=== PATIENT | male | born 1955 | race Caucasian/White ===

== ENCOUNTER → 2019-04-30 10:42 | Outpatient (BNVA) | payer BC, SELFPAY | PROVIDERS: Visit Provider Nurse Practitioner Family | DX: I10 Essential (primary) hypertension (principal); F17.200 Nicotine dependence, unspecified, uncomplicated; Z12.5 Encounter for screening for malignant neoplasm of prostate; E66.3 Overweight | CPT/HCPCS: 80053; 80061; 82044; 85025 ==

== ENCOUNTER 2019-07-23 06:33 | Outpatient (CLI) | payer BC, SELFPAY ==
--- NOTE | 2019-07-23 07:15 | USCV_ITS ---
Kentrell Hubbard Age: 63 Gender: M : 1955 Exam Date: 07/23/2019 06:46 Ordering Phys: Kathy Marquez MD ([email or web address]) Technologist: Kaylen Ferguson [place] [facility] [place]: LV FUNCTION BP: 132 / 95 HR: 61 Rhythm: Sinus Technical Quality: MEASUREMENTS (Male / Female) Normal Values 2D ECHO LV Diastolic Diameter PLAX 3.3 cm 4.2 - 5.9 / 3.9 - 5.3 cm LV Systolic Diameter PLAX 2.4 cm LV Chamber Size 3.1 cm IVS Diastolic Thickness 1.5 cm 0.6 - 1.0 / 0.6 - 0.9 cm IVS Systolic Thickness 1.8 cm LVPW Diastolic Thickness 2.2 cm 0.6 - 1.0 / 0.6 - 0.9 cm LVPW Systolic Thickness 2.7 cm RV Chamber Size 2.3 cm LVOT Diameter 2.0 cm LV Ejection Fraction 2D Teich 54.6 % LV Ejection Fraction MOD 2C 47.1 % LV Ejection Fraction 2C AL 45.9 % LA Diameter 4.1 cm LA Width 3.5 cm LA Height 5.5 cm RA Width 2.7 cm RA Height 4.4 cm Aorta at Sinotubular Diameter 2.7 cm M-MODE LV Diastolic Diameter MM 5.6 cm 4.2 - 5.9 / 3.9 - 5.3 cm LV Systolic Diameter MM 4.6 cm LV Ejection Fraction MM Teich 36.9 % IVS Diastolic Thickness MM 1.1 cm 0.6 - 1.0 / 0.6 - 0.9 cm IVS Systolic Thickness MM 1.3 cm LVPW Diastolic Thickness MM 1.5 cm 0.6 - 1.0 / 0.6 - 0.9 cm LVPW Systolic Thickness MM 1.7 cm Aortic Annulus Diameter 2.9 cm LA Ao Ratio MM 1.4 MV E Point Septal Separation 1.1 cm DOPPLER AV Peak Velocity 111.0 cm/s LVOT Peak Velocity 100.0 cm/s AV Area Cont Eq vti 3.1 cm squared AV Area Cont Eq pk 2.8 cm squared MV Area PHT 2.7 cm squared Mitral E to A Ratio 1.1 MV E' Velocity 71.0 cm/s TR Peak Velocity 219.0 cm/s TR Peak Gradient 19.2 mmHg TV Peak E Velocity 65.0 cm/s Right Atrial Pressure 3.0 mmHg Pulmonary Artery Systolic Pressu 22.2 mmHg PV Peak Velocity 52.0 cm/s RV Acceleration Time 0.1 s RV Ejection Time 0.4 s RV AcT/ET 0.3 FINDINGS Left Ventricle Normal left ventricular cavity size. Normal left ventricular systolic function. Left ventricular ejection fraction is estimated at 55-60 %. Although no diagnostic regional wall motion abnormality could be identified, this possibility cannot be completely excluded based on this study. Right Ventricle Right ventricle not well visualized. Probably normal right ventricular size and systolic function. Right ventricular systolic pressure 22.2 mmHg. Right Atrium Normal right atrial size. Left Atrium Normal left atrial size. Mitral Valve Mildly thickened mitral valve. No mitral valve stenosis. Trace mitral valve regurgitation. Aortic Valve Aortic valve not well visualized. No aortic valve stenosis. No aortic valve regurgitation. Tricuspid Valve Tricuspid valve not well visualized. Trace tricuspid valve regurgitation. Pulmonic Valve Pulmonic valve not well visualized. Pericardium No pericardial effusion. Aorta Normal size aortic root and proximal ascending aorta. CONCLUSIONS 1. This is a technically difficult study. 2. Normal left ventricular cavity size and systolic function. Left ventricular ejection fraction is estimated at 55-60 %. Although no diagnostic regional wall motion abnormality could be identified, this possibility cannot be completely excluded based on this study. 3. No significant valvular abnormality. 4. Normal pulmonary artery pressure. 5. No prior similar studies to compare. Kathy Marquez MD (Electronically Signed) Final Date: 23 July 2019 12:43 S
== END 2019-07-23 06:34 | disposition home or self-care (01) ==
PROVIDERS: Visit Provider Internal Medicine Cardiovascular Disease
DX: I42.9 Cardiomyopathy, unspecified (principal)
CPT/HCPCS: 93306

== ENCOUNTER → 2020-01-08 11:27 | Outpatient (BNVA) | payer BC, SELFPAY | PROVIDERS: Visit Provider Internal Medicine Cardiovascular Disease | DX: I25.10 Atherosclerotic heart disease of native coronary artery without angina pectoris (principal); I50.9 Heart failure, unspecified; Z98.61 Coronary angioplasty status | CPT/HCPCS: 80053; 80061; 83721; 85025 ==

== ENCOUNTER → 2020-07-11 09:42 | Outpatient (BNVA) | payer BC, SELFPAY | PROVIDERS: PCP Family Medicine; Visit Provider Internal Medicine Cardiovascular Disease | DX: I25.10 Atherosclerotic heart disease of native coronary artery without angina pectoris (principal); I10 Essential (primary) hypertension; Z98.61 Coronary angioplasty status; E78.5 Hyperlipidemia, unspecified | CPT/HCPCS: 80053; 80061; 85025 ==

== ENCOUNTER → 2021-01-08 11:27 | Outpatient (BNVA) | payer BC, SELFPAY | PROVIDERS: PCP Family Medicine; Visit Provider Family Medicine | DX: I50.9 Heart failure, unspecified (principal); J44.9 Chronic obstructive pulmonary disease, unspecified; I11.0 Hypertensive heart disease with heart failure; E78.5 Hyperlipidemia, unspecified; I25.10 Atherosclerotic heart disease of native coronary artery without angina pectoris; Z98.61 Coronary angioplasty status | CPT/HCPCS: 80053; 83880; 85025 ==

== ENCOUNTER → 2021-07-09 11:22 | Outpatient (BNVA) | payer BC, SELFPAY | PROVIDERS: PCP Family Medicine; Visit Provider Internal Medicine Cardiovascular Disease | DX: I25.10 Atherosclerotic heart disease of native coronary artery without angina pectoris (principal); I50.9 Heart failure, unspecified; Z98.61 Coronary angioplasty status; I10 Essential (primary) hypertension; E78.5 Hyperlipidemia, unspecified | CPT/HCPCS: 80053; 80061 ==

== ENCOUNTER 2022-01-23 11:08 | Inpatient (IN) | payer MEDICARE, SELFPAY ==
[2022-01-23] VITALS (81 sets, daily range): BP systolic 88–132; BP diastolic 51–90; PULSE 56–94; RESP 6–30; TEMP 35.8–36.6; O2SAT 66–98
--- NOTE | 2022-01-23 11:23 | PC.NURSE ---
Patient arrived via pov, SAT 63% on room air, a/o, taken to room 11
--- NOTE | 2022-01-23 11:24 | XRR_ITS ---
PROCEDURE INFORMATION: Exam: XR Chest Exam date and time: 01/23/2022 12:38 PM Age: 66 years old Clinical indication: Shortness of breath; Additional info: SOB TECHNIQUE: Imaging protocol: Radiologic exam of the chest. Views: 1 view. COMPARISON: No relevant prior studies available. FINDINGS: Limitations: The study is technically limited by the patient's body habitus. Lungs: Poor inspiration. Decreased lung volumes. Bibasilar airspace disease. No central pulmonary vascular congestion. Pleural spaces: No pleural effusion or pneumothorax. Heart/Mediastinum: The cardiac silhouette is borderline enlarged for an AP portable exam. 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 Bones/joints: No acute osseous abnormality. XR/XR chest 1V portable [id number] IMPRESSION: 1. Bibasilar airspace disease. 2. Borderline cardiomegaly.
[2022-01-23] MEDS: ipratropium-albuterol 3 mL Neb INHALATION ×4 (11:30→23:01)
--- NOTE | 2022-01-23 11:42 | ECG_ITS ---
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 Measurements Intervals Bude Rate: 88 P: 58 NM: 176 QRS: 121 QRSD: 99 T: -24 QT: 368 QTc: 447 Interpretive Statements SINUS RHYTHM POSSIBLE RIGHT VENTRICULAR HYPERTROPHY [SOME/ALL OF: PROMINENT R IN V1, LATE TRANSITION, RAD, WENDY, SSS] ABNORMAL QRS-T ANGLE [QRS-T AXIS DIFFERENCE > 60] No previous ECG available for comparison Electronically Signed On 01-24-2022 10:13:39 CDT by Rod Mclean M.D. [id number]
[2022-01-23 11:43] LABS: Arterial Blood Gas Hematocrit 50.3 % (42-52); Base Excess ABG -2.1 mmol/L (-2.0-2.0); Blood Gas Allen Test Pos; Blood Gas Operator Identificat MONRO; Blood Gas Sample Site Radial, right; Blood Gas Sample Type Arterial; Carboxyhemoglobin 4.9 %THgb (0.4-20.1); HCO3 ABG 30.5 mmol/L (22-26); HGB O2 Sat 70.6 % (95-100); Ionized Calcium Level - ABG 1.2 mmol/L (1.1-1.4); Methemoglobin 0.8 % (0.4-1.5); Oxygen Saturation ABG 74.8; PO2 ABG 48.5 mmHg (80.0-100.0); Potassium Level - ABG 4.3 mmol/L (3.5-5.0); Total Hemoglobin 16.4 g/dL (14-18)
[2022-01-23 11:44] LABS: ABG PCO2 91.3 mmHg (35-45); ABG PH Result 7.13 (7.35-7.45); Alveolar-Arterial Oxygen Gradi 21.7 mmHg (5-10); Oxygen Device NC
[2022-01-23 12:08] LABS: Basophils % 0.4 %; Eosinophils % 0.1 %; Hemoglobin 16.5 g/dL (11.7-16.6); Lymphocytes # 1.2 10^3/uL (0.8-4.8); Lymphocytes % 11.8 %; Mean Corpuscular Hemoglobin 30.7 pg (28.0-34.0); Mean Corpuscular Volume 102.2 fl (80-94); Mean Platelet Volume 10.6 fL (7.4-10.4); Monocytes % 9.4 %; Neutrophils # 8.12 10^3/uL (1.8-7.7); Neutrophils % 77.8 %; Nucleated Red Blood Cells # 0.1 /100WBC; Nucleated Red Blood Cells % 0.7 %; Platelet Count 211 10^3/cmm (130-400); Red Blood Count 5.38 10^6/uL (4.1-5.3); Red Cell Distribution Width 17.1 % (12.1-15.1); White Blood Count 10.4 10^3/uL (4.0-10.0)
[2022-01-23 12:28] LABS: Lactate (Lactic Acid level) 0.9 mmol/L (0.5-2.2)
[2022-01-23 12:29] LABS: Troponin(5th) Baseline 92 ng/L (0-15)
[2022-01-23 12:48] LABS: Alanine Aminotransferase 8 U/L (0-41); Albumin Level 4.1 g/dL (3.5-5.2); Alkaline Phosphatase 65 U/L (40-130); Anion Gap 14.7 (5-19); Aspartate Amino Transferase 9 U/L (0-40); C Reactive Protein 8.2 mg/L (0.0-4.9); Calcium 8.5 mg/dL (8.5-10.5); Carbon Dioxide 31 mmol/L (22-29); Chloride 101 mmol/L (98-107); Globulin 2.7 g/dL (1.3-4.6); Glomerular Filtration Rate 24.9 mL/min (90-130); Glucose 119 mg/dL (65-115); Magnesium 2.5 mg/dL (1.7-2.3); NT Pro B Type Natriuretic Pept 5847 pg/mL (0-125); Osmolality Calculated 320 mOsm/kg (285-295); Potassium 4.7 mmol/L (3.5-5.1); Sodium 142 mmol/L (136-145); Total Bilirubin 0.5 mg/dL (0.15-1.2); Total Protein 6.8 g/dL (6.6-8.7)
[2022-01-23 12:52] LABS: Blood Urea Nitrogen 82 mg/dL (8-23)
[2022-01-23] MEDS: sodium chloride 0.9% 1,000 ML 999 ML IV ×2 (13:01→18:41)
--- NOTE | 2022-01-23 13:02 | W.ED.SOB ---
HPI - SOB/Dyspnea General: Chief Complaint: Shortness of Breath/Dyspnea Stated Complaint: Sent from [facility] for Low O2/Low BP Time Seen by Provider: 01/23/22 11:24 History of Present Illness: HPI Narrative: 66-year-old male sent in by [facility] due to low oxygen. Patient has likely undiagnosed COPD based on his last providers note. His son reports that he supposed to have been on oxygen for quite some time but refuses. Patient comes in today because he just felt crappy last couple days. When he went to the clinic he was found to have low oxygen. Sent here for further evaluation. Upon arrival his oxygen was in the 70s to 80s. Patient does not provide a lot of other information. His son reports that he had a cardiac arrest about 2 years ago. Associated symptoms: Deny abdominal pain, chest pain, fever(s), lightheadedness, nausea, palpitations or vomiting Review of Systems Const: Reports: fatigue; Denies: fever(s) or chills Eyes: Denies: change in vision or blurry vision Card: Denies: chest pain, palpitations or lightheadedness Resp: Reports: dyspnea; Denies: productive cough or wheezing GI: Denies: abdominal pain, nausea or vomiting Skin/Breast: Denies: rash or pruritus Neuro: Denies: headache(s) or numbness in extremities Psych: Denies: anxiety or depression PFSH ED PFSH: Medical History CAD S/P percutaneous coronary angioplasty CHF (congestive heart failure), NYHA class III Dyslipidemia (high LDL; low HDL) History of tobacco use HTN (hypertension) Surgical History History of appendectomy Family History Mother Hypertension CAD (coronary artery disease) Dementia Father Hypertension CAD (coronary artery disease) Family/Other CAD (coronary artery disease) Grandfather CAD (coronary artery disease) Grandmother CAD (coronary artery disease) Dementia Social History Smoking and tobacco status: former smoker Alcohol intake: never Physical Exam Const: COMMON NORMALS: patient oriented x3 GENERAL APPEARANCE: not in distress NUTRITIONAL APPEARANCE: obese Resp: COMMON NORMALS: normal respiratory effort AUSCULTATION: diminished lung sounds diffuse Cardio: COMMON NORMALS: regular rate and regular rhythm RATE: regular rate RHYTHM: regular rhythm Extremity: COMMON NORMALS: full ROM Neuro: COMMON NORMALS: patient oriented x3, moves all extremities, no focal motor deficits and no sensory deficits noted Psych: COMMON NORMALS: speech normal APPEARANCE: Yes grossly normal ATTITUDE: Yes calm SPEECH: Yes normal speech Skin: COMMON NORMALS: no rashes or lesions noted GENERAL SKIN EXAM: no rashes or lesions noted Procedures Central Line Placement Right IJ: Patient Placed on Monitor/Pulse Ox: Yes MD Prep: mask, gown and gloves Central Line Prep: Chlorhexidine scrub and sterile drapes applied Local Anesthetic: lidocaine 1% Amount of anesthesia used (mL): 4 Ultrasound Used for Placement: Yes Central Line Lumen Inserted: triple Post Procedure: sutured in place, good blood return, all ports aspirated, flushed, capped and sterile dressing applied Post Procedure X-Ray: no pneumothorax seen and other (cathered coiled u'd up but in good position ) Patient Tolerated Procedure: well Complications: none Intubation Time out performed: Yes sedative: Etomidate Mg Given: 20 paralytic: Succinylcholine Mg Given: 150 Laryngoscope: fiber optic video scope ET Tube Size: 8 Tube Secured Depth (cm): 21 Tube Secured Location: lips Tube Placement Confirmation: visualized tube passing through cords, equal breath sounds bilaterally, no breath sounds over epigastrium and confirmation by capnometry Patient Tolerated Procedure: no complications Course Vital Signs: Vital signs: Vital Signs Pulse Rate 70 01/23/22 17:10 Respiratory Rate 16 01/23/22 17:10 Blood Pressure 91/62 01/23/22 12:45 Pulse Oximetry 90 01/23/22 17:10 Oxygen Delivery Me thod 01/23/22 17:10 Oxygen Flow Rate 6 01/23/22 11:34 Fraction of Inspir ed Oxygen 100 01/23/22 17:10 MDM - SOB/Dyspnea Medical Decision Making Patient with hypercapnic hypoxic respiratory failure. Along with acute kidney injury. Patient initially did well on oxygen and became more hypercapnic and was and started on BiPAP. Patient's ABG showed no improvement on BiPAP so the decision was made to then intubate him. Patient was in the bed without difficulty. Patient with likely chronic hypercapnia that was worsened with oxygen. Patient to be admitted to the ICU to Dr. Almeida for further inpatient management. Lab Data : 01/23/22 11:59 01/23/22 11:59 Labs/Radiology: Radiology Impressions Chest X-Ray 01/23/22 11:24 IMPRESSION: 1. Bibasilar airspace disease. 2. Borderline cardiomegaly. Renal Ultrasound 01/23/22 16:37 IMPRESSION: Unremarkable kidneys and bladder. Laboratory Results WBC 10.4 10^3/uL (4.0-10.0) H 01/23/22 11:59 RBC 5.38 10^6/uL (4.1-5.3) H 01/23/22 11:59 Hgb 16.5 g/dL (11.7-16.6) 01/23/22 11:59 Hct 55.0 % (42.0-52.0) H 01/23/22 11:59 MCV 102.2 fl (80-94) H 01/23/22 11:59 MCH 30.7 pg (28.0-34.0) 01/23/22 11:59 MCHC 30.0 g/dL (30.0-36.0) 01/23/22 11:59 RDW 17.1 % (12.1-15.1) H 01/23/22 11:59 Plt Count 211 10^3/cmm (130-400) 01/23/22 11:59 MPV 10.6 fL (7.4-10.4) H 01/23/22 11:59 Neut % (Auto) 77.8 % 01/23/22 11:59 Lymph % (Auto) 11.8 % 01/23/22 11:59 [place] % (Auto) 9.4 % 01/23/22 11:59 Eos % (Auto) 0.1 % 01/23/22 11:59 Baso % (Auto) 0.4 % 01/23/22 11:59 Neut # (Auto) 8.12 10^3/uL (1.8-7.7) H 01/23/22 11:59 Lymph # (Auto) 1.2 10^3/uL (0.8-4.8) 01/23/22 11:59 [place] # (Auto) 1.0 10^3/uL (0.2-0.9) H 01/23/22 11:59 Eos # (Auto) 0.0 10^3/uL (0.0-0.8) 01/23/22 11:59 Baso # (Auto) 0.0 10^3/uL (0.0-0.1) 01/23/22 11:59 Nucleated RBC % (auto) 0.7 % 01/23/22 11:59 Nucleated RBCs # 0.1 /100WBC 01/23/22 11:59 Specimen Type Arterial 01/23/22 14:10 Sample Site Radial, right 01/23/22 14:10 ABG pH 7.15 (7.35-7.45) L* 01/23/22 14:10 ABG pCO2 90.2 mmHg (35-45) H* 01/23/22 14:10 ABG pO2 80.8 mmHg (80.0-100.0) 01/23/22 14:10 ABG HCO3 31.1 mmol/L (22-26) H 01/23/22 14:10 ABG O2 Saturation 94.2 01/23/22 14:10 ABG Base Excess -1.3 mmol/L (-2.0-2.0) 01/23/22 14:10 Bairon Test Pos 01/23/22 14:10 A-a O2 Gradient 40.9 mmHg (5-10) H 01/23/22 14:10 Hematocrit 49.9 % (42-52) 01/23/22 14:10 Hgb O2 Saturation 89.5 % (95-100) L 01/23/22 14:10 Carboxyhemoglobin 4.4 %THgb (0.4-20.1) 01/23/22 14:10 Methemoglobin 0.6 % (0.4-1.5) 01/23/22 14:10 Total Hemoglobin 16.3 g/dL (14-18) 01/23/22 14:10 Sodium 144.0 mmol/L (131-143) H 01/23/22 14:10 Potassium 4.7 mmol/L (3.5-5.0) 01/23/22 14:10 Glucose 111.0 mg/dL (70-115) 01/23/22 14:10 Ionized Calcium 1.1 mmol/L (1.1-1.4) 01/23/22 14:10 O2 Delivery Device Bipap 01/23/22 14:10 O2 Liters/Min 6.0 % 01/23/22 11:38 FiO2 70.0 % 01/23/22 14:10 [employer] Crewmember ID Dom 01/23/22 14:10 Sodium 142 mmol/L (136-145) 01/23/22 11:59 Potassium 4.7 mmol/L (3.5-5.1) 01/23/22 11:59 Chloride 101 mmol/L (98-107) 01/23/22 11:59 Carbon Dioxide 31 mmol/L (22-29) H 01/23/22 11:59 Anion Gap 14.7 (5-19) 01/23/22 11:59 BUN 82 mg/dL (8-23) H* D 01/23/22 11:59 Creatinine 2.6 mg/dL (0.7-1.2) H 01/23/22 11:59 GFR Calculation 24.9 mL/min (90-130) L 01/23/22 11:59 Glucose 119 mg/dL (65-115) H 01/23/22 11:59 Calculated Osmolality 320 mOsm/kg (285-295) H 01/23/22 11:59 Lactate 0.9 mmol/L (0.5-2.2) 01/23/22 11:59 Calcium 8.5 mg/dL (8.5-10.5) 01/23/22 11:59 Magnesium 2.5 mg/dL (1.7-2.3) H 01/23/22 11:59 Total Bilirubin 0.5 mg/dL (0.15-1.2) 01/23/22 11:59 AST 9 U/L (0-40) 01/23/22 11:59 ALT 8 U/L (0-41) 01/23/22 11:59 Alkaline Phosphatase 65 U/L (40-130) 01/23/22 11:59 Troponin T Baseline 92 ng/L (0-15) H 01/23/22 11:59 Troponin T 120 Minute 83.91 ng/L (0-15) H 01/23/22 13:47 Delta Troponin T -8.09 ABS# (0-10) L 01/23/22 13:47 C-Reactive Protein 8.2 mg/L (0.0-4.9) H 01/23/22 11:59 NT-Pro-B Natriuret Pep 5847 pg/mL (0-125) H 01/23/22 11:59 Total Protein 6.8 g/dL (6.6-8.7) 01/23/22 11:59 Albumin 4.1 g/dL (3.5-5.2) 01/23/22 11:59 Globulin 2.7 g/dL (1.3-4.6) 01/23/22 11:59 Critical Care Time Critical Care Time: Total Critical Care Time: 60 Attestation: This case had a high probability of a clinically significant, sudden, or life threatening deterioration of this patient's condition which required my full and direct attention, intervention and personal management. Discharge Plan Discharge Patient Disposition: Admitted As Inpatient Admit Provider: Matt Almeida Clinical Impression: Acute on chronic respiratory failure with hypoxia and hypercapnia Condition: Stable Coding Level of Care Code ED Shrink Pit Operator for Angelica Fwd Exam Detailed
[2022-01-23] MEDS: succinylcholine 20 mg/mL SDV 10mL 150 MG IV ×2 (13:07→15:56)
--- NOTE | 2022-01-23 13:37 | PC.PHAR ---
pt unable to verify home meds - verified by ext med history
[2022-01-23 14:23] LABS: Alveolar-Arterial Oxygen Gradi 40.9 mmHg (5-10); Arterial Blood Gas Hematocrit 49.9 % (42-52); Base Excess ABG -1.3 mmol/L (-2.0-2.0); Blood Gas Allen Test Pos; Blood Gas Operator Identificat MONRO; Blood Gas Sample Site Radial, right; Blood Gas Sample Type Arterial; Carboxyhemoglobin 4.4 %THgb (0.4-20.1); HCO3 ABG 31.1 mmol/L (22-26); HGB O2 Sat 89.5 % (95-100); Ionized Calcium Level - ABG 1.1 mmol/L (1.1-1.4); Methemoglobin 0.6 % (0.4-1.5); Oxygen Device BIPAP; Oxygen Saturation ABG 94.2; PO2 ABG 80.8 mmHg (80.0-100.0); Potassium Level - ABG 4.7 mmol/L (3.5-5.0); Total Hemoglobin 16.3 g/dL (14-18)
[2022-01-23 14:24] LABS: ABG PH Result 7.15 (7.35-7.45)
[2022-01-23 14:25] LABS: ABG PCO2 90.2 mmHg (35-45)
--- NOTE | 2022-01-23 14:29 | PC.NURSE ---
unable to get 2nd EKG, pt was laying in his side and we tired to roll him over several times and would not stay on his back and was pulling leads
[2022-01-23 14:47] LABS: Troponin 5 2HR 83.91 ng/L (0-15)
[2022-01-23 14:48] LABS: Troponin 5 2HR Delta -8.09 ABS# (0-10)
--- NOTE | 2022-01-23 16:01 | XRR_ITS ---
PROCEDURE INFORMATION: Exam: XR Chest Exam date and time: 01/23/2022 5:40 PM Age: 66 years old Clinical indication: Device placement; Other: Ng et central line placement; Additional info: Tube placement TECHNIQUE: Imaging protocol: Radiologic exam of the chest. Views: 1 view. COMPARISON: CR (CHEST, ) 01/23/2022 12:38 PM FINDINGS: Tubes, catheters and devices: Endotracheal tube tip in place 4.3 cm above the keely. Enteric tube tip below the diaphragm over the gastric bubble. Right central venous catheter seen with the tip curled superiorly, which may be within the azygos vein, consider repositioning. Lungs: Patchy bilateral ground-glass airspace opacities reflecting alveolar edema and/or pneumonia. Mild pulmonary vascular congestion. Pleural spaces: Small left pleural effusion. Heart/Mediastinum: Cardiomegaly. Bones/joints: Unremarkable. XR/XR chest 1V portable [id number] IMPRESSION: 1. Endotracheal tube tip in place 4.3 cm above the keely. 2. Enteric tube tip below the diaphragm over the gastric bubble. 3. Right central venous catheter seen with tip curled superiorly, which may be within the azygos vein, consider repositioning. 4. Cardiomegaly. 5. Small left pleural effusion. 6. Patchy bilateral ground-glass airspace opacities reflecting alveolar edema and/or pneumonia. 7. Mild pulmonary vascular congestion.
[2022-01-23] MEDS: midazolam 1 mg/mL INJ 2 mL 2 MG IVP (16:36)
[2022-01-23] MEDS: dexmedeTOMIDine 0.9 % NaCL 400 MCG/100 ML PREMIX 10.58 MCG IV (16:37)
--- NOTE | 2022-01-23 16:37 | USR_ITS ---
PROCEDURE INFORMATION: Exam: US Retroperitoneal; Complete; Kidneys and Bladder Exam date and time: 01/23/2022 4:50 PM Age: 66 years old Clinical indication: Other: Segun; Patient HX: Came from clinic SOB now on vent TECHNIQUE: Imaging protocol: Real-time ultrasound of the retroperitoneum with image documentation. Complete exam focused on the kidneys and bladder. COMPARISON: No relevant prior studies available. FINDINGS: Right kidney: Normal. No stones. No hydronephrosis. Left kidney: Normal. No stones. No hydronephrosis. Urinary bladder: Unremarkable. US/US renal BI* [id number] IMPRESSION: Unremarkable kidneys and bladder.
--- NOTE | 2022-01-23 16:41 | P.HP_ITS ---
Providers/Chief Complaint Admitting Physician: Matt Almeida MD Primary Care Provider: Jazzy Hendricks MD Chief Complaint: Sent from [facility] for Low O2/Low BP History of Present Illness Kentrell Hubbard is a 66 year old male with PMH of HTN, COPD, CAD S/P PCI , Out of hospital V.Fib arrest s/p resuscitation in 2019 was sent from [facility] where he went with c/o of ongoing fatigue as well as weakness, there he was found to be hypoxic with his o2 saturation in 30s as well as SBP in 80s, he was sent to the ER upon arrival in the ER he 02 sats were in 80s and initially non invasive ventilation was tried,based on his initial abgs, but later he had to be intubated given no significant improvement on NIV. History has been taken by ER Chart review. Pertinent Imaging Studies : Xray chest : Bibasilar airspace disease EKG : SR ,No aute ST-T Waves changes Pertinent Labs : WBC : 10 H&H: 16/55 , PLT : 211 , Na: 142, k:4.2 , BUN/SCR : 82/2.6 , HCO3:31 , Troponin: 92- 83 Pro BNP: 5847 ABG : Reviewed Patient received Breathing treatment , steroids was on BIPAP initially and was then intubated in ER. Review of Systems General: Reports: ROS unobtainable due to endotracheal tube Medications/Allergies Home Medications Medication Instructions Recorded Confirmed Last Taken Type nitroglycerin 0.4 mg sublingual 0.4 mg sublingual Q5M PRN Chest 05/23/19 01/23/22 Unknown History tablet Pain aspirin 81 mg tablet,delayed 81 mg PO DAILY 06/05/19 01/23/22 Unknown History release carvedilol 25 mg tablet 25 mg PO BID #180 tabs 01/07/22 01/23/22 Unknown Rx clopidogrel 75 mg tablet 75 mg PO DAILY #90 tabs 01/07/22 01/23/22 Unknown Rx hydrochlorothiazide 50 mg tablet 50 mg PO DAILY 90 days #90 tabs 01/07/22 01/23/22 Unknown Rx ipratropium 20 mcg-albuterol 100 1 puff inhalation Q4H PRN 01/07/22 01/23/22 Unknown Rx mcg/actuation mist for inhalation shortness of breath or wheezing #4 (Combivent Respimat) grams lisinopril 20 mg tablet 20 mg PO BID #180 tabs 01/07/22 01/23/22 Unknown Rx rosuvastatin 40 mg tablet 40 mg PO DAILY 90 days #90 tabs 01/07/22 01/23/22 Unknown Rx Allergies Allergy/AdvReac Type Severity Reaction Status Date / Time No Known Allergies Allergy Verified 01/07/22 07:51 PFSH Acute PFSH: Medical History CAD S/P percutaneous coronary angioplasty CHF (congestive heart failure), NYHA class III Dyslipidemia (high LDL; low HDL) History of tobacco use HTN (hypertension) Surgical History History of appendectomy Family History Mother Hypertension CAD (coronary artery disease) Dementia Father Hypertension CAD (coronary artery disease) Family/Other CAD (coronary artery disease) Grandfather CAD (coronary artery disease) Grandmother CAD (coronary artery disease) Dementia Social History Smoking and tobacco status: former smoker Alcohol intake: never Vitals/I&O/Wt Last Vital Signs Pulse 75 01/23/22 14:35 Resp 16 01/23/22 16:25 BP 91/62 01/23/22 12:45 Pulse Ox 93 01/23/22 14:35 O2 Del Method 01/23/22 12:45 O2 Flow Rate 6 01/23/22 11:34 FiO2 100 01/23/22 16:25 01/23/22 01/23/22 01/23/22 06:59 14:59 22:59 Intake Total 1000 / 1000 Balance 1000 / 1000 Weight last 48 hrs Weight 141 kg Physical Exam HENMT: COMMON NORMALS: normocephalic and atraumatic Resp: COMMON NORMALS: clear to auscultation bilaterally EFFORT & INSPECTION: Yes symmetric chest movement AUSCULTATION: clear to auscultation bilaterally Cardio: COMMON NORMALS: regular rate, regular rhythm, S1 normal heart sound present, S2 normal heart sound present, No gallops present (Cardio), No murmurs present (Cardio), No rub (Cardio) and Peripheral pulses 2+ throughout RATE: regular rate RHYTHM: regular rhythm HEART SOUNDS: S1 normal heart sound p resent and S2 normal heart sound present PERIPHERAL PULSES: Peripheral pulses 2+ throughout GI: COMMON NORMALS: Normal to inspection, nondistended, normoactive bowel sounds present, Soft to palpation, non-tender, No hepatosplenomegaly present and no masses AUSCULTATION: Yes normoactive bowel sounds PALPATION: Yes Soft to palpation and Yes No hepatosplenomegaly present RECTAL EXAM: Yes deferred Extremity: COMMON NORMALS: no clubbing, cyanosis or edema and no pedal edema Data : 01/23/22 11:59 01/23/22 11:59 A&P Assessment and plan (1) Acute on chronic respiratory failure with hypoxia and hypercapnia: (2) COPD (chronic obstructive pulmonary disease): (3) CHF (congestive heart failure), NYHA class III: Qualifiers: Congestive heart failure type: unspecified Qualified Code(s): I50.9 - Heart failure, unspecified (4) Dyslipidemia (high LDL; low HDL): (5) HTN (hypertension): Qualifiers: Hypertension type: essential hypertension Qualified Code(s): I10 - Essential (primary) hypertension (6) CAD S/P percutaneous coronary angioplasty: (7) Acute kidney injury superimposed on CKD: (8) NSTEMI (non-ST elevated myocardial infarction): Plan 66 year old male with PMH of HTN, COPD, CAD S/P PCI , Out of hospital V.Fib arrest s/p resuscitation in 2019 was sent from [facility] where he went with c/o of ongoing fatigue as well as weakness, there he was found to be hypoxic with his o2 saturation in 30s as well as SBP in 80s, he was sent to the ER upon arrival in the ER he 02 sats were in 80s and initially non invasive ventilation was tried,based on his initial abgs, but later he had to be intubated given no significant improvement on NIV. Assessment : Respiratory failure with hypoxia and hypercapnia likely secondary to COPD ex acerbation/pneumonia NSTEMI CHRISTIANO ON CKD : Possibly prerenal: With possible contribution from: Lisinopril / hydrochlorothiazide CAD S/P PCI HTN Likely undiagnosed COPD DLD Plan : 2D echo: Renal ultrasound: Unremarkable kidneys and bladder. Urine random sodium Urine random creatinine Urine random total protein FENA UPCR Blood culture Urine culture Sputum gram stain and culture Urine Legionella antigen Bacterial antigen cost and risk analysis manager ABG Monitor x-ray chest Duo nebs Solu-Medrol 60 IV every 8 Currently on ceftriaxone azithromycin Monitor intake output charting Continue aspirin, Plavix and statin IV hydration Avoid nephrotoxic CODE STATUS: Full code DVT prophylaxis: On heparin Attestations Medical Necessity Statement*: Patient needs to be in hospital for management of respiratory failure. Anticipated length of stay greater than 2 midnights Time Spent in Patient Care: Greater than 35 minutes Critical Care Time: The high probability of a clinically significant, sudden or life threatening deterioration of the patient's [] system(s) required my full and direct attention, intervention and personal management. The critical care time is as shown. This time is in addition to time spent performing any reported procedures but includes the following: [x] Data and vital sign review and interpretation [x] Patient assessment, examination and intervention [x] Documentation [x] Medication orders and management Critical Care Time (min): 30 Coding Level of Care Code Acute Molten Iron Pourer for Chg Fwd Exam Detailed Diagnoses Acute on chronic respiratory failure with hypoxia and hypercapnia J96.21; J96.22 COPD (chronic obstructive pulmonary disease) J44.9 CHF (congestive heart failure), NYHA class III I50.9 Congestive heart failure type: unspecified Dyslipidemia (high LDL; low HDL) E78.5 HTN (hypertension) I10 Hypertension type: essential hypertension CAD S/P percutaneous coronary angioplasty I25.10; Z98.61 Acute kidney injury superimposed on CKD N17.9; N18.9 NSTEMI (non-ST elevated myocardial infarction) I21.4
--- NOTE | 2022-01-23 16:54 | PC.NURSE ---
at 1556 pts IV flushed easy, we gave the etomidate and succinylcholine and pt had very little effect from the meds, his IV still flushed but would not draw. It was believe the IV was bad since pt appeared to have response to the meds. Another IV was started and the RSI meds were given again with the desired effect.
--- NOTE | 2022-01-23 17:00 | PC.NURSE ---
Pts family stated they wanted pt to be a full code, pt is unable to make his own choices
--- NOTE | 2022-01-23 17:13 | ECG_ITS ---
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 Measurements Intervals [place] Rate: 68 P: 7 CT: 187 QRS: -65 QRSD: 99 T: 80 QT: 419 QTc: 447 Interpretive Statements SINUS RHYTHM LEFT AXIS DEVIATION [QRS AXIS < -30] ST DEVIATION AND MODERATE T-WAVE ABNORMALITY, CONSIDER ANTERIOR ISCHEMIA [-0.1+ mV T-WAVE IN V3/V4] Compared to ECG 01/23/2022 11:42:41 Left-axis deviation now present T-wave abnormality now present Possible ischemia now present Electronically Signed On 01-24-2022 10:18:09 CDT by Rod Mclean M.D. [id number]
--- NOTE | 2022-01-23 18:15 | USCV_ITS ---
Ketnrell Hubbard Age: 66 Gender: M : 1955 Exam Date: 01/23/2022 19:34 Ordering Phys: Matt Almeida MD Technologist: Leslie Chen Exam Location: [facility] [place] Indication: SOB on vent BP: 117 / 79 HR: 64 Rhythm: Sinus Technical Quality: Adequate MEASUREMENTS (Male / Female) Normal Values 2D ECHO LV Diastolic Diameter PLAX 3.6 cm 4.2 - 5.9 / 3.9 - 5.3 cm LV Systolic Diameter PLAX 3.0 cm LV Chamber Size 3.5 cm IVS Diastolic Thickness 0.9 cm 0.6 - 1.0 / 0.6 - 0.9 cm IVS Systolic Thickness 1.6 cm LVPW Diastolic Thickness 1.4 cm 0.6 - 1.0 / 0.6 - 0.9 cm LVPW Systolic Thickness 1.2 cm RV Chamber Size 4.4 cm LVOT Diameter 2.1 cm LV Ejection Fraction 2D Teich 35.1 % LV Ejection Fraction MOD 2C 51.0 % LV Ejection Fraction 2C AL 51.5 % LA Diameter 4.1 cm LA Width 4.4 cm LA Height 5.2 cm RA Width 4.0 cm RA Height 5.2 cm Aorta at Sinotubular Diameter 3.6 cm IVC Diameter 2.0 cm M-MODE Aortic Annulus Diameter 3.6 cm LA Ao Ratio MM 1.1 MV E Point Septal Separation 0.5 cm DOPPLER AV Peak Velocity 106.0 cm/s LVOT Peak Velocity 78.0 cm/s AV Area Cont Eq vti 3.1 cm squared AV Area Cont Eq pk 2.5 cm squared MV Area PHT 2.9 cm squared Mitral E to A Ratio 1.1 MV E' Velocity 39.0 cm/s Mitral E to MV E' Ratio 11.7 Mitral E to LV E' Lateral Ratio 10.0 Mitral E to LV E' Septal Ratio 14.3 TR Peak Velocity 224.6 cm/s TR Peak Gradient 20.2 mmHg TR Mean Velocity 178.7 cm/s TR Mean Gradient 14.1 mmHg TR Velocity Time Integral 75.6 cm TV Peak E Velocity 54.0 cm/s Right Atrial Pressure 15.0 mmHg Pulmonary Artery Systolic Pressu 35.2 mmHg RV Acceleration Time 0.1 s RV Ejection Time 0.4 s RV AcT/ET 0.4 FINDINGS Left Ventricle Patient is obese and on a ventilator making imaging very challenging. The ventricle is probably upper limit of normal in size. There is likely mild decrease in left ventricular function. Wall motion disturbances cannot be properly assessed. Diastolic function cannot be assessed. The overall ejection fraction is probably in the 45 to 50% range. Right Ventricle The right ventricle appears to be slightly enlarged. Right Atrium Mildly increased right atrial size. Left Atrium Mildly increased left atrial size. Mitral Valve Mitral valve not well visualized. Aortic Valve Aortic valve not well visualized. No aortic valve stenosis. Tricuspid Valve Tricuspid valve not well visualized. Pulmonic Valve Pulmonic valve not well visualized. Pericardium Normal pericardium without effusion. Aorta Aorta not well visualized. IVC Inferior vena cava not visualized. CONCLUSIONS Patient is obese and on a ventilator making imaging very challenging. The ventricle is probably upper limit of normal in size. There is likely mild decrease in left ventricular function. Wall motion disturbances cannot be properly assessed. Diastolic function cannot be assessed. The overall ejection fraction is probably in the 45 to 50% range. The right ventricle appears to be slightly enlarged. Mildly increased right atrial size. Mildly increased left atrial size. Compared to the previous echo dated 07/23/2019, the left ventricular function is either the same or slightly diminished. Otherwise there has been no significant change. Dr. Rod Mclean MD (Electronically Signed) Final Date: 24 January 2022 09:12 S
[2022-01-23] MEDS: propofol 1,000 MG/100 ML INJ 25.38 MG IV (18:24)
[2022-01-23 18:29] LABS: ABG PH Result 7.26 (7.35-7.45); Alveolar-Arterial Oxygen Gradi 75.2 mmHg (5-10); Arterial Blood Gas Hematocrit 50.1 % (42-52); Base Excess ABG -1.1 mmol/L (-2.0-2.0); Blood Gas Allen Test Pos; Blood Gas Operator Identificat MONRO; Blood Gas Sample Site Radial, right; Blood Gas Sample Type Arterial; Blood Gas Tidal Volume 0.55; Carboxyhemoglobin 3.2 %THgb (0.4-20.1); HCO3 ABG 27.8 mmol/L (22-26); HGB O2 Sat 87.8 % (95-100); Ionized Calcium Level - ABG 1.1 mmol/L (1.1-1.4); Methemoglobin 0.6 % (0.4-1.5); Oxygen Device VENT; Oxygen Saturation ABG 91.3; Potassium Level - ABG 4.9 mmol/L (3.5-5.0); Total Hemoglobin 16.3 g/dL (14-18)
[2022-01-23 18:30] LABS: ABG PCO2 61.9 mmHg (35-45)
[2022-01-23] MEDS: azithromycin 500 MG in sodium chloride 0.9% 250 ML 250 MG IV (18:42)
[2022-01-23] MEDS: heparin 5,000 unit/mL INJ 1 mL 5000 UNIT SUBCUT (18:42)
--- NOTE | 2022-01-23 18:57 | PC.NURSE ---
order of 5mg versed was not given, i put in a diffrent order for 2mg versed that was given, i could not cancel the order for 5mg because it was discontinued in the may. I spoke with pharmacy and they are aware and are going to look into it
[2022-01-23 19:32] LABS: Troponin 5 6HR 61.42 ng/L (0-15)
--- NOTE | 2022-01-23 19:40 | CTR_ITS ---
PROCEDURE INFORMATION: Exam: CT Head Without Contrast Exam date and time: 01/23/2022 11:27 PM Age: 66 years old Clinical indication: Other: Pupil change TECHNIQUE: Imaging protocol: Computed tomography of the head without contrast. Radiation optimization: All CT scans at this facility use at least one of these dose optimization techniques: automated exposure control; mA and/or kV adjustment per patient size (includes targeted exams where dose is matched to clinical indication); or iterative reconstruction. COMPARISON: No relevant prior studies available. RADIATION DOSE METRICS: Total DLP (mGy-cm): 1329.78 FINDINGS: Brain: Moderate calcified intracranial atherosclerotic vessel disease. Cerebral ventricles: No ventriculomegaly. Paranasal sinuses: Mild right sphenoid sinus disease. Mild left maxillary sinus disease. Mild right ethmoid sinus disease. Mastoid air cells: Visualized mastoid air cells are well aerated. Bones/joints: Unremarkable. No acute fracture. Soft tissues: Unremarkable. CT/CT head wo con* [id number] IMPRESSION: 1. Mild bilateral paranasal sinus disease. 2. No acute intracranial findings.
[2022-01-23] MEDS: cefTRIAXone 1,000 MG in sodium chloride 0.9% (plus) 50 ML 100 MG IV (19:54)
[2022-01-23 19:59] LABS: Creatinine Urine, Random 238 mg/dL (39-259)
[2022-01-23] MEDS: sodium chloride 0.9% 1,000 ML 75 ML IV (20:00)
[2022-01-23 20:04] LABS: Urine Random Sodium 39 mmol/L
[2022-01-23 20:10] LABS: Urine Protein Random 40 mg/dL
--- NOTE | 2022-01-23 20:25 | PC.NURSE ---
Received verbal order from Dr. Almeida to reduce IV maintenance fluids from 100 ml/hr to 75 ml/hr and to stop fluids if pt destats to mid 80 SpO2.
--- NOTE | 2022-01-23 21:00 | PC.NURSE ---
Received telephone order from Dr. Almeida to start scheduled lovenox [address] comes back negative.
--- NOTE | 2022-01-23 21:30 | PC.NURSE ---
Communication w/ CT, waiting per their request to bring pt down.
[2022-01-23] MEDS: propofol 1,000 MG/100 ML INJ 21.15 MG IV (21:34)
--- NOTE | 2022-01-23 23:02 | ECG_ITS ---
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 Measurements Intervals [place] Rate: 71 P: 51 OR: 190 QRS: 48 QRSD: 111 T: 13 QT: 426 QTc: 464 Interpretive Statements SINUS RHYTHM LOW QRS VOLTAGE IN EXTREMITY LEADS [QRS DEFLECTION < 0.5 mV IN LIMB LEADS] MODERATE INTRAVENTRICULAR CONDUCTION DELAY [105+ ms QRS DURATION, 80+ ms Q/S IN V1/V2, NO Q AND 60+ ms R IN I/aVL/V5/V6] ST DEVIATION AND MODERATE T-WAVE ABNORMALITY, CONSIDER ANTERIOR ISCHEMIA [-0.1+ mV T-WAVE IN V3/V4] Compared to ECG 01/23/2022 17:13:25 Low QRS voltage now present Intraventricular conduction delay now present Left-axis deviation no longer present T-wave abnormality still present Possible ischemia still present Electronically Signed On 01-24-2022 10:18:51 CDT by Rod Mclean M.D. [id number]
[2022-01-24] VITALS (29 sets, daily range): BP systolic 92–130; BP diastolic 54–89; PULSE 63–75; RESP 14–22; TEMP 36.6–36.7; O2SAT 89–100
--- NOTE | 2022-01-24 00:57 | XRR_ITS ---
PROCEDURE INFORMATION: Exam: XR Chest Exam date and time: 01/24/2022 1:23 AM Age: 66 years old Clinical indication: Device placement; Other: Cental line; Additional info: Central line placement TECHNIQUE: Imaging protocol: Radiologic exam of the chest. Views: 1 view. COMPARISON: CR (CHEST, ) 01/23/2022 5:40 PM FINDINGS: Tubes, catheters and devices: Interval removal of right internal jugular line. Interval placement of left central line with tip over the left brachycephalic vein. Endotracheal tube in place. Enteric tube in place. Lungs: Unremarkable. No consolidation. Pleural spaces: Unremarkable. No pleural effusion. No pneumothorax. Heart/Mediastinum: Unremarkable. No cardiomegaly. Bones/joints: Unremarkable. Other findings: Patient rotation to the left. XR/XR chest 1V portable [id number] IMPRESSION: 1. Interval removal of right internal jugular line. 2. Interval placement of left central line with tip over the left brachycephalic vein. Impression.
[2022-01-24] MEDS: propofol 1,000 MG/100 ML INJ 33.84 MG IV ×3 (01:01→07:00)
--- NOTE | 2022-01-24 01:02 | P.PCN_ITS ---
Procedure/Consent Consent: Additional Consent Information: Discussed with son Procedure Narrative: Lost central line. Poor peripheral access. Acute Procedures Central Line Placement: Left IJ: Time out performed: Yes Patient placed on monitor/pulse ox: Yes MD prep: mask, gown and gloves Central line prep: Chlorhexidine scrub Local anesthesia used: lidocaine 1% Amount of anesthesia used (ml): 1.5 Ultrasound used for placement: Yes Central line lumen inserted: triple Post procedure: sutured in place, good blood return, all ports aspirated, flushed, capped and sterile dressing applied Patient tolerated procedure: well Additional comments: Cannot confirm good position of the catheter. Very rotated on chest x-ray, difficult to ascertain catheter positioning. Obtained CT chest to confirm position. Catheter traveling through IJ then at some point question of possible extraluminal course and tip. There were no issues with guidewire going in and the catheter kusum blood and flushed well. However, discussed with his son possible extravasation. Even though catheter appeared to be working, with concern that it is not clear it did not exit the vessel and so the catheter will not be used at this time. With possible extraluminal catheter, on ant icoagulation and antiplatelets concern also with removal of the catheter risking bleeding in case there is vessel perforation, and so we discussed since currently there is no vascular surgery/thoracic surgery available in house keeping the catheter in place and arrangement for transfer to facility where he can be further assessed in consultation with surgical services.
--- NOTE | 2022-01-24 01:16 | PC.NURSE ---
Pt placed on portable monitor. Inspected lines. Central line appears to be sutured around the main lumen. Green securement device contains no sutures. Transparent dressing intact. Pt transported to CT w/ this RN and RT. During walk from ICU to CT pt began pulling at restrains and pulling up from the bed. Propofol was titrated up. During transfer from bed to CT table, central line in the R IJ dislodged completely. Pressure was held at the site until bleeding stopped. Medications were switched the L upper arm peripheral IV. Propofol was titrated up. Allowed several minutes to assure pt was properly sedated and continued with head CT. Pt was transferred back to ICU w/ this RN, RT, and [address] Graham updated. Dr. Cotto assessed pt and obtained consent from pt family. Central line placed in the L IJ. Pt tolerated well. Chest x ray to confirm placement. Current Vitals: HR: 76, SpO2 90%, BP 110/68.
--- NOTE | 2022-01-24 01:57 | PC.NURSE ---
Old central line site in the R IJ was cleaned w/ alcohol swabs and suture was removed. No bleeding at site. No hemotoma.
--- NOTE | 2022-01-24 02:25 | CTR_ITS ---
PROCEDURE INFORMATION: Exam: CT Chest Without Contrast; Diagnostic Exam date and time: 01/24/2022 3:25 AM Age: 66 years old Clinical indication: Shortness of breath; Additional info: Follow up on hypoxia. Cvc positioning TECHNIQUE: Imaging protocol: Diagnostic computed tomography of the chest without contrast. Radiation optimization: All CT scans at this facility use at least one of these dose optimization techniques: automated exposure control; mA and/or kV adjustment per patient size (includes targeted exams where dose is matched to clinical indication); or iterative reconstruction. COMPARISON: CR (CHEST, ) 01/24/2022 1:23 AM RADIATION DOSE METRICS: Total DLP (mGy-cm): 739.04 FINDINGS: Tubes, catheters and devices: Endotracheal tube in place. Enteric tube in place. Lungs: See Lymph nodes finding. Pleural spaces: Bilateral pleural fluid collections with pneumonia/atelectasis in the dependent portions of the lungs. Heart: Severe calcified coronary artery disease. Lymph nodes: Calcified right hilar nodes and/or mediastinal nodes and/or lung granulomas consistent with old granulomatous disease. Vasculature: Normal appearing bilateral brachycephalic veins and right-sided superior vena cava. Bones/joints: Unremarkable. No acute fracture. Soft tissues: The distal portion of the left internal jugular line appears to be in the fat plane between the left brachycephalic vein in the left clavicle. Possibly extraluminal position. Axial series 3, images 5-13. Examination is limited by artifact from one or both arms by the patient's side. CT/CT chest con [id number] IMPRESSION: 1. The distal portion of the left internal jugular line appears to be in the fat plane between the left brachycephalic vein in the left clavicle. Possibly extraluminal position. Axial series 3, images 5-13. 2. Normal appearing bilateral brachycephalic veins and right-sided superior vena cava. 3. Severe calcified coronary artery disease. 4. Bilateral pleural fluid collections with pneumonia/atelectasis in the dependent portions of the lungs.
[2022-01-24] MEDS: enoxaparin 150 mg/mL Syringe 140 MG SUBCUT (02:43)
[2022-01-24] MEDS: ipratropium-albuterol 3 mL Neb INHALATION (03:01)
[2022-01-24 03:15] LABS: ABG PCO2 48.1 mmHg (35-45); ABG PH Result 7.35 (7.35-7.45); Arterial Blood Gas Hematocrit 49.6 % (42-52); Base Excess ABG 0.3 mmol/L (-2.0-2.0); Blood Gas Allen Test Pos; Blood Gas Sample Site Radial, right; Blood Gas Sample Type Arterial; HCO3 ABG 26.6 mmol/L (22-26); Oxygen Device VENT; PO2 ABG 63.9 mmHg (80.0-100.0)
--- NOTE | 2022-01-24 03:58 | PC.NURSE ---
Pt connected to portable monitor. Inspected Lines. Pt transported to CT @0313 w/ 2 RN's and RT. Returned to ICU @0338.
--- NOTE | 2022-01-24 04:37 | PC.NURSE ---
Communication w/ Dr. Graham. New order to not use L IJ central line but to keep it in place. Due to CT finding of possible extraluminal positioning.
[2022-01-24 05:02] LABS: Basophils % 0.1 %; Hematocrit 52.3 % (42.0-52.0); Lymphocytes # 0.5 10^3/uL (0.8-4.8); Lymphocytes % 7.7 %; Mean Corpuscular HGB Conc 30.6 g/dL (30.0-36.0); Mean Corpuscular Hemoglobin 30.6 pg (28.0-34.0); Mean Platelet Volume 11.1 fL (7.4-10.4); Monocytes # 0.4 10^3/uL (0.2-0.9); Monocytes % 5.1 %; Neutrophils # 5.96 10^3/uL (1.8-7.7); Neutrophils % 86.5 %; Nucleated Red Blood Cells % 0.6 %; Platelet Count 180 10^3/cmm (130-400); Red Blood Count 5.23 10^6/uL (4.1-5.3); Red Cell Distribution Width 16.9 % (12.1-15.1); White Blood Count 6.9 10^3/uL (4.0-10.0)
[2022-01-24 05:19] LABS: INR 1.23 (0.8-1.2)
[2022-01-24 05:20] LABS: Partial Thromboplastin Time 34.7 SECONDS (23.9-36.7)
[2022-01-24 05:25] LABS: Lactic Sepsis W/Reflex 1.7 mmol/L (0.5-2.2)
[2022-01-24 05:26] LABS: Alanine Aminotransferase 7 U/L (0-41); Albumin Level 3.2 g/dL (3.5-5.2); Alkaline Phosphatase 59 U/L (40-130); Anion Gap 12.5 (5-19); Aspartate Amino Transferase 12 U/L (0-40); Blood Urea Nitrogen 75 mg/dL (8-23); Calcium 8.3 mg/dL (8.5-10.5); Carbon Dioxide 28 mmol/L (22-29); Chloride 104 mmol/L (98-107); Globulin 2.7 g/dL (1.3-4.6); Glucose 131 mg/dL (65-115); Magnesium 2.3 mg/dL (1.7-2.3); Osmolality Calculated 314 mOsm/kg (285-295); Phosphorus 3.4 mg/dL (2.5-4.5); Potassium 4.5 mmol/L (3.5-5.1); Sodium 140 mmol/L (136-145); Total Bilirubin 0.4 mg/dL (0.15-1.2); Total Protein 5.9 g/dL (6.6-8.7)
[2022-01-24 05:31] LABS: Procalcitonin 0.11 ng/mL (0-0.5)
[2022-01-24] MEDS: chlorhexidine gluconate 4% Btl 118 mL 1 APPLIC TOPICAL (05:36)
--- NOTE | 2022-01-24 05:46 | P.TS_ITS ---
Transfer Summary Providers Date of Admission: 01/23/22 16:14 Date of Discharge/Transfer: 01/24/22 Attending Provider at Admission: Matt Almeida MD Attending Provider at Transfer: Matt Almeida MD Primary Care Provider: Jazzy Hendricks MD Transfer Plans: Anticipated date of transfer: 01/24/22 . Diagnoses at Discharge Discharge Diagnosis (1) Acute on chronic respiratory failure with hypoxia and hypercapnia: Status: Acute (2) COPD (chronic obstructive pulmonary disease): Status: Acute (3) CHF (congestive heart failure), NYHA class III: Status: Acute Qualifiers: Congestive heart failure type: unspecified Qualified Code(s): I50.9 - Heart failure, unspecified (4) Dyslipidemia (high LDL; low HDL): Status: Acute (5) HTN (hypertension): Status: Acute Qualifiers: Hypertension type: essential hypertension Qualified Code(s): I10 - Essential (primary) hypertension (6) CAD S/P percutaneous coronary angioplasty: Status: Chronic (7) Acute kidney injury superimposed on CKD: Status: Acute (8) NSTEMI (non-ST elevated myocardial infarction): Status: Acute Reason for Visit Reason for Visit Sent from [facility] for Low O2/Low BP Hospital Course Hospital Course Pneumonia atelectasis in the dependent portions but 66-year-old gentleman with history of CAD, prior stenting, HFpEF, last EF 55-60% on TTE 06/2019, remote history of V. fib cardiac arrest in April 2019, at that time noted multivessel CAD, surgery necessary considered, but subsequently underwent multiple stent placement, former smoker, HTN, HLD was admitted with hypoxic respiratory failure, saturations in the 80s on arrival, complaining of ongoing fatigue, weakness, short of breath, initially trialed NIPPV in ER. Chest x-ray with bibasilar airspace disease, EKG with sinus rhythm, no acute ST-T changes, WBC 10, hemoglobin 16, platelets 211, sodium 142, potassium 4.2, BUN 82, creatinine 2.6, previously 0.6 from June 2021. Bicarbonate 31. Anion gap 12. 5. Troponin with moderate elevation of presentation 92, 1883.9, 6-hour troponin 61.42. NT proBNP 5847. Procalcitonin 0.11. D-dimer 1.0. He failed initial trial of NIPPV and was intubated and started on mechanical ventilatory support with sedation with propofol and fentanyl and has remained on 100% FiO2 saturating 89-91 %. He was continued on ceftriaxone, azithromycin for COPD exacerbation, pneumonia. Blood, sputum cultures, bacterial antigens were obtained and pending. He was continued on aspirin, Plavix, statin, started on therapeutic Lovenox for possible NSTEMI. Echocardiogram was obtained and pending. Left lower extremity venous duplex without DVT. Kidney ultrasound with unremarkable kidneys and bladder. COVID-19 PCR obtained and pending. His IV infiltrated in the right arm, with poor peripheral access right IJ CVC was placed in ER, with tip noted curled appearing possibly within azygous vein, however, this line had to be removed as it also became dislodged. Unable to f ind additional peripheral access left IJ was placed and chest x-ray obtained, however, very rotated on imaging precluding confirmation of good positioning. CT scan subsequently obtained for confirmation noting concern of possible extraluminal catheter. On discussion with radiologist catheter is running in the internal jugular vein initially, however, at some point in the brachiocephalic vein cannot be confirmed intraluminal and may be extending into the fat plane between brachiocephalic vein and left clavicle. During catheter placement the guidewire threaded in and removed smoothly, and the catheter returned blood and flushed as well. However, discussed with his son with concern of possible extraluminal catheter, inability to confirm position, catheter could not be safely used as well as concern that catheter cannot be safely removed without vascular/CT surgery backup available with risk of bleeding and he is also on anticoagulation and antiplatelet as the catheter is currently left in place. With currently unavailable thoracic surgery we discussed transfer for additional assessment and consultation with surgery, and discussed case with vascular surgery and thoracic surgery at [facility] as well as the investment sales assistant. He is kindly accepted for further assessment and management. Unfortunately air EVAC could not be utilized due to weather. Updated his son. Physical Exam Const: GENERAL APPEARANCE: patient mechanically ventilated ORIENTATION/CONSCIOUSNESS: Yes Other orientation findings (Sedated) HENMT: COMMON NORMALS: oropharynx normal Neck/C-Spine: OTHER: L IJ CVC Chest: CHEST: Yes Symmetrical chest wall rise Cardio: COMMON NORMALS: regular rhythm RHYTHM: regular rhythm GI: COMMON NORMALS: Normal to inspection, nondistended, normoactive bowel sounds present Extremity: COMMON NORMALS: no joint enlargement and no pedal edema Neuro: COMMON NORMALS: moves all extremities TS Data Studies Completed and Pending Pending at discharge Category Date Time Status ABG FULL [Arterial Blood Gas Full] AM LABS Lab 01/24/22 04:00 Ordered ABG FULL [Arterial Blood Gas Full] AM LABS Lab 01/25/22 04:00 Ordered ABG FULL [Arterial Blood Gas Full] AM LABS Lab 01/26/22 04:00 Ordered Bacterial Antigen Routine Lab 01/23/22 19:10 Received Blood Culture Routine Lab 01/23/22 18:50 Results COVID OZH [Coronavirus PCR] Routine Lab 01/24/22 05:15 Received Complete Blood Count w/Auto AM LABS Lab 01/25/22 04:00 Ordered Complete Blood Count w/Auto AM LABS Lab 01/26/22 04:00 Ordered Comprehensive Metabolic Panel AM LABS Lab 01/25/22 04:00 Ordered Comprehensive Metabolic Panel AM LABS Lab 01/26/22 04:00 Ordered Legionella Antigen STAT Routine Lab 01/23/22 19:10 Received Magnesium AM LABS Lab 01/25/22 04:00 Ordered Magnesium AM LABS Lab 01/26/22 04:00 Ordered Sputum Culture and Gram Stain Routine Lab 01/23/22 18:00 Ordered Sputum Culture and Gram Stain Stat Lab 01/23/22 16:30 Received CV. echo complete* [id number] Routine Ultrasound 01/23/22 18:15 Taken Labs from last 24 hours 01/24/22 01/24/22 01/24/22 05:15 04:50 04:50 WBC RBC Hgb Hct MCV MCH MCHC RDW Plt Count MPV Neut % (Auto) Lymph % (Auto) [place] % (Auto) Eos % (Auto) Baso % (Auto) Neut # (Auto) Lymph # (Auto) [place] # (Auto) Eos # (Auto) Baso # (Auto) Nucleated RBC % (auto) Nucleated RBCs # PT INR APTT D-Dimer Specimen Type Sample Site ABG pH ABG pCO2 ABG pO2 ABG HCO3 ABG O2 Saturation ABG Base Excess [place] Test A-a O2 Gradient Hematocrit Hgb O2 Saturation Carboxyhemoglobin Methemoglobin Total Hemoglobin Sodium 140 Potassium 4.5 Glucose 131 H Ionized Calcium O2 Delivery Device O2 Liters/Min FiO2 Tidal Volume PEEP Interface Analyst ID Chloride 104 Carbon Dioxide 28 Anion Gap 12.5 BUN 75 H Creatinine 1.5 H GFR Calculation 47.0 L Calculated Osmolality 314 H Lactic Acid 1.7 Lactate Calcium 8.3 L Phosphorus 3.4 Magnesium 2.3 Total Bilirubin 0.4 AST 12 ALT 7 Alkaline Phosphatase 59 Troponin T Baseline Troponin T 120 Minute Delta Troponin T Troponin T Hi Sens 6Hr Troponin T Hi Sens 6Hr Delta C-Reactive Protein NT-Pro-B Natriuret Pep Total Protein 5.9 L Albumin 3.2 L Globulin 2.7 Procalcitonin 0.11 U Random Total Protein Ur Random Sodium Urine Creatinine Coronavirus 229E (PCR) Pending SARS-CoV-2 (PCR) Pending 01/24/22 01/24/22 01/24/22 04:50 04:50 03:10 WBC 6.9 RBC 5.23 Hgb 16.0 Hct 52.3 H MCV 100.0 H MCH 30.6 MCHC 30.6 RDW 16.9 H Plt Count 180 MPV 11.1 H Neut % (Auto) 86.5 Lymph % (Auto) 7.7 [place] % (Auto) 5.1 Eos % (Auto) 0.0 Baso % (Auto) 0.1 Neut # (Auto) 5.96 Lymph # (Auto) 0.5 L [place] # (Auto) 0.4 Eos # (Auto) 0.0 Baso # (Auto) 0.0 Nucleated RBC % (auto) 0.6 Nucleated RBCs # 0.0 PT 15.80 H INR 1.23 H APTT 34.7 D-Dimer 1.00 H Specimen Type Arterial Sample Site Radial, right ABG pH 7.35 ABG pCO2 48.1 H ABG pO2 63.9 L ABG HCO3 26.6 H ABG O2 Saturation ABG Base Excess 0.3 Bairon Test Pos A-a O2 Gradient Hematocrit 49.6 Hgb O2 Saturation Carboxyhemoglobin Methemoglobin Total Hemoglobin Sodium Potassium Glucose Ionized Calcium O2 Delivery Device Vent O2 Liters/Min FiO2 100.0 Tidal Volume 0.50 PEEP 10.0 Interface Analyst ID ellpe Chloride Carbon Dioxide Anion Gap BUN Creatinine GFR Calculation Calculated Osmolality Lactic Acid Lactate Calcium Phosphorus Magnesium Total Bilirubin AST ALT Alkaline Phosphatase Troponin T Baseline Troponin T 120 Minute Delta Troponin T Troponin T Hi Sens 6Hr Troponin T Hi Sens 6Hr Delta C-Reactive Protein NT-Pro-B Natriuret Pep Total Protein Albumin Globulin Procalcitonin U Random Total Protein Ur Random Sodium Urine Creatinine Coronavirus 229E (PCR) SARS-CoV-2 (PCR) 01/23/22 01/23/22 01/23/22 19:10 19:10 18:50 WBC RBC Hgb Hct MCV MCH MCHC RDW Plt Count MPV Neut % (Auto) Lymph % (Auto) [place] % (Auto) Eos % (Auto) Baso % (Auto) Neut # (Auto) Lymph # (Auto) [place] # (Auto) Eos # (Auto) Baso # (Auto) Nucleated RBC % (auto) Nucleated RBCs # PT INR APTT D-Dimer Specimen Type Sample Site ABG pH ABG pCO2 ABG pO2 ABG HCO3 ABG O2 Saturation ABG Base Excess [place] Test A-a O2 Gradient Hematocrit Hgb O2 Saturation Carboxyhemoglobin Methemoglobin Total Hemoglobin Sodium Potassium Glucose Ionized Calcium O2 Delivery Device O2 Liters/Min FiO2 Tidal Volume PEEP Interface Analyst ID Chloride Carbon Dioxide Anion Gap BUN Creatinine GFR Calculation Calculated Osmolality Lactic Acid Lactate Calcium Phosphorus Magnesium Total Bilirubin AST ALT Alkaline Phosphatase Troponin T Baseline Troponin T 120 Minute Delta Troponin T Troponin T Hi Sens 6Hr 61.42 H Troponin T Hi Sens 6Hr Delta -30.58 L C-Reactive Protein NT-Pro-B Natriuret Pep Total Protein Albumin Globulin Procalcitonin U Random Total Protein 40 Ur Random Sodium 39 Urine Creatinine 238 Coronavirus 229E (PCR) SARS-CoV-2 (PCR) 01/23/22 01/23/22 01/23/22 18:16 14:10 13:47 WBC RBC Hgb Hct MCV MCH MCHC RDW Plt Count MPV Neut % (Auto) Lymph % (Auto) [place] % (Auto) Eos % (Auto) Baso % (Auto) Neut # (Auto) Lymph # (Auto) [place] # (Auto) Eos # (Auto) Baso # (Auto) Nucleated RBC % (auto) Nucleated RBCs # PT INR APTT D-Dimer Specimen Type Arterial Arterial Sample Site Radial, right Radial, right ABG pH 7.26 L 7.15 L* ABG pCO2 61.9 H* 90.2 H* ABG pO2 61.0 L 80.8 ABG HCO3 27.8 H 31.1 H ABG O2 Saturation 91.3 94.2 ABG Base Excess -1.1 -1.3 Bairon Test Pos Pos A-a O2 Gradient 75.2 H 40.9 H Hematocrit 50.1 49.9 Hgb O2 Saturation 87.8 L 89.5 L Carboxyhemoglobin 3.2 4.4 Methemoglobin 0.6 0.6 Total Hemoglobin 16.3 16.3 Sodium 141.0 144.0 H Potassium 4.9 4.7 Glucose 144.0 H 111.0 Ionized Calcium 1.1 1.1 O2 Delivery Device Vent Bipap O2 Liters/Min FiO2 100.0 70.0 Tidal Volume 0.55 PEEP 8.0 Interface Analyst ID Monro Monro Chloride Carbon Dioxide Anion Gap BUN Creatinine GFR Calculation Calculated Osmolality Lactic Acid Lactate Calcium Phosphorus Magnesium Total Bilirubin AST ALT Alkaline Phosphatase Troponin T Baseline Troponin T 120 Minute 83.91 H Delta Troponin T -8.09 L Troponin T Hi Sens 6Hr Troponin T Hi Sens 6Hr Delta C-Reactive Protein NT-Pro-B Natriuret Pep Total Protein Albumin Globulin Procalcitonin U Random Total Protein Ur Random Sodium Urine Creatinine Coronavirus 229E (PCR) SARS-CoV-2 (PCR) 01/23/22 01/23/22 01/23/22 11:59 11:59 11:59 WBC RBC Hgb Hct MCV MCH MCHC RDW Plt Count MPV Neut % (Auto) Lymph % (Auto) [place] % (Auto) Eos % (Auto) Baso % (Auto) Neut # (Auto) Lymph # (Auto) [place] # (Auto) Eos # (Auto) Baso # (Auto) Nucleated RBC % (auto) Nucleated RBCs # PT INR APTT D-Dimer Specimen Type Sample Site ABG pH ABG pCO2 ABG pO2 ABG HCO3 ABG O2 Saturation ABG Base Excess [place] Test A-a O2 Gradient Hematocrit Hgb O2 Saturation Carboxyhemoglobin Methemoglobin Total Hemoglobin Sodium 142 Potassium 4.7 Glucose 119 H Ionized Calcium O2 Delivery Device O2 Liters/Min FiO2 Tidal Volume PEEP Interface Analyst ID Chloride 101 Carbon Dioxide 31 H Anion Gap 14.7 BUN 82 H* D Creatinine 2.6 H GFR Calculation 24.9 L Calculated Osmolality 320 H Lactic Acid Lactate 0.9 Calcium 8.5 Phosphorus Magnesium 2.5 H Total Bilirubin 0.5 AST 9 ALT 8 Alkaline Phosphatase 65 Troponin T Baseline 92 H Troponin T 120 Minute Delta Troponin T Troponin T Hi Sens 6Hr Troponin T Hi Sens 6Hr Delta C-Reactive Protein 8.2 H NT-Pro-B Natriuret Pep 5847 H Total Protein 6.8 Albumin 4.1 Globulin 2.7 Procalcitonin U Random Total Protein Ur Random Sodium Urine Creatinine Coronavirus 229E (PCR) SARS-CoV-2 (PCR) 01/23/22 01/23/22 11:59 11:38 WBC 10.4 H RBC 5.38 H Hgb 16.5 Hct 55.0 H MCV 102.2 H MCH 30.7 MCHC 30.0 RDW 17.1 H Plt Count 211 MPV 10.6 H Neut % (Auto) 77.8 Lymph % (Auto) 11.8 [place] % (Auto) 9.4 Eos % (Auto) 0.1 Baso % (Auto) 0.4 Neut # (Auto) 8.12 H Lymph # (Auto) 1.2 [place] # (Auto) 1.0 H Eos # (Auto) 0.0 Baso # (Auto) 0.0 Nucleated RBC % (auto) 0.7 Nucleated RBCs # 0.1 PT INR APTT D-Dimer Specimen Type Arterial Sample Site Radial, right ABG pH 7.13 L* ABG pCO2 91.3 H* ABG pO2 48.5 L ABG HCO3 30.5 H ABG O2 Saturation 74.8 ABG Base Excess -2.1 L [place]airon Test Pos A-a O2 Gradient 21.7 H Hematocrit 50.3 Hgb O2 Saturation 70.6 L Carboxyhemoglobin 4.9 Methemoglobin 0.8 Total Hemoglobin 16.4 Sodium 144.0 H Potassium 4.3 Glucose 116.0 H Ionized Calcium 1.2 O2 Delivery Device Nc O2 Liters/Min 6.0 FiO2 45.0 Tidal Volume PEEP Interface Analyst ID Monro Chloride Carbon Dioxide Anion Gap BUN Creatinine GFR Calculation Calculated Osmolality Lactic Acid Lactate Calcium Phosphorus Magnesium Total Bilirubin AST ALT Alkaline Phosphatase Troponin T Baseline Troponin T 120 Minute Delta Troponin T Troponin T Hi Sens 6Hr Troponin T Hi Sens 6Hr Delta C-Reactive Protein NT-Pro-B Natriuret Pep Total Protein Albumin Globulin Procalcitonin U Random Total Protein Ur Random Sodium Urine Creatinine Coronavirus 229E (PCR) SARS-CoV-2 (PCR) Completed Studies During Hospitalization Category Date Time Status CT chest wo con [id number] Routine Cat Scan 01/24/22 02:[address] head wo con* [id number] Routine Cat Scan 01/23/22 19:40 Completed XR chest 1V portable [id number] Stat Exams 01/23/22 11:24 Completed XR chest 1V portable [id number] Stat Exams 01/23/22 16:01 Completed XR chest 1V portable [id number] Stat Exams 01/24/22 00:57 [place] [id number] Routine Ultrasound 01/24/22 22:39 Completed US renal BI* [id number] Stat Ultrasound 01/23/22 16:37 Completed Laboratory Last Values WBC 6.9 10^3/uL (4.0-10.0) 01/24/22 04:50 RBC 5.23 10^6/uL (4.1-5.3) 01/24/22 04:50 Hgb 16.0 g/dL (11.7-16.6) 01/24/22 04:50 Hct 52.3 % (42.0-52.0) H 01/24/22 04:50 MCV 100.0 fl (80-94) H 01/24/22 04:50 MCH 30.6 pg (28.0-34.0) 01/24/22 04:50 MCHC 30.6 g/dL (30.0-36.0) 01/24/22 04:50 RDW 16.9 % (12.1-15.1) H 01/24/22 04:50 Plt Count 180 10^3/cmm (130-400) 01/24/22 04:50 MPV 11.1 fL (7.4-10.4) H 01/24/22 04:50 Neut % (Auto) 86.5 % 01/24/22 04:50 Lymph % (Auto) 7.7 % 01/24/22 04:50 [place] % (Auto) 5.1 % 01/24/22 04:50 Eos % (Auto) 0.0 % 01/24/22 04:50 Baso % (Auto) 0.1 % 01/24/22 04:50 Neut # (Auto) 5.96 10^3/uL (1.8-7.7) 01/24/22 04:50 Lymph # (Auto) 0.5 10^3/uL (0.8-4.8) L 01/24/22 04:50 [place] # (Auto) 0.4 10^3/uL (0.2-0.9) 01/24/22 04:50 Eos # (Auto) 0.0 10^3/uL (0.0-0.8) 01/24/22 04:50 Baso # (Auto) 0.0 10^3/uL (0.0-0.1) 01/24/22 04:50 Nucleated RBC % (auto) 0.6 % 01/24/22 04:50 Nucleated RBCs # 0.0 /100WBC 01/24/22 04:50 PT 15.80 SECONDS (12.1-14.9) H 01/24/22 04:50 INR 1.23 (0.8-1.2) H 01/24/22 04:50 APTT 34.7 SECONDS (23.9-36.7) 01/24/22 04:50 D-Dimer 1.00 ug/mIFEU (0-0.59) H 01/24/22 04:50 Specimen Type Arterial 01/24/22 03:10 Sample Site Radial, right 01/24/22 03:10 ABG pH 7.35 (7.35-7.45) 01/24/22 03:10 ABG pCO2 48.1 mmHg (35-45) H 01/24/22 03:10 ABG pO2 63.9 mmHg (80.0-100.0) L 01/24/22 03:10 ABG HCO3 26.6 mmol/L (22-26) H 01/24/22 03:10 ABG O2 Saturation 91.3 01/23/22 18:16 ABG Base Excess 0.3 mmol/L (-2.0-2.0) 01/24/22 03:10 Bairon Test Pos 01/24/22 03:10 A-a O2 Gradient 75.2 mmHg (5-10) H 01/23/22 18:16 Hematocrit 49.6 % (42-52) 01/24/22 03:10 Hgb O2 Saturation 87.8 % (95-100) L 01/23/22 18:16 Carboxyhemoglobin 3.2 %THgb (0.4-20.1) 01/23/22 18:16 Methemoglobin 0.6 % (0.4-1.5) 01/23/22 18:16 Total Hemoglobin 16.3 g/dL (14-18) 01/23/22 18:16 Sodium 141.0 mmol/L (131-143) 01/23/22 18:16 Potassium 4.9 mmol/L (3.5-5.0) 01/23/22 18:16 Glucose 144.0 mg/dL (70-115) H 01/23/22 18:16 Ionized Calcium 1.1 mmol/L (1.1-1.4) 01/23/22 18:16 O2 Delivery Device Vent 01/24/22 03:10 O2 Liters/Min 6.0 % 01/23/22 11:38 FiO2 100.0 % 01/24/22 03:10 Tidal Volume 0.50 01/24/22 03:10 PEEP 10.0 cmH20 01/24/22 03:10 Interface Analyst ID ellpe 01/24/22 03:10 Sodium 140 mmol/L (136-145) 01/24/22 04:50 Potassium 4.5 mmol/L (3.5-5.1) 01/24/22 04:50 Chloride 104 mmol/L (98-107) 01/24/22 04:50 Carbon Dioxide 28 mmol/L (22-29) 01/24/22 04:50 Anion Gap 12.5 (5-19) 01/24/22 04:50 BUN 75 mg/dL (8-23) H 01/24/22 04:50 Creatinine 1.5 mg/dL (0.7-1.2) H 01/24/22 04:50 GFR Calculation 47.0 mL/min (90-130) L 01/24/22 04:50 Glucose 131 mg/dL (65-115) H 01/24/22 04:50 Calculated Osmolality 314 mOsm/kg (285-295) H 01/24/22 04:50 Lactic Acid 1.7 mmol/L (0.5-2.2) 01/24/22 04:50 Lactate 0.9 mmol/L (0.5-2.2) 01/23/22 11:59 Calcium 8.3 mg/dL (8.5-10.5) L 01/24/22 04:50 Phosphorus 3.4 mg/dL (2.5-4.5) 01/24/22 04:50 Magnesium 2.3 mg/dL (1.7-2.3) 01/24/22 04:50 Total Bilirubin 0.4 mg/dL (0.15-1.2) 01/24/22 04:50 AST 12 U/L (0-40) 01/24/22 04:50 ALT 7 U/L (0-41) 01/24/22 04:50 Alkaline Phosphatase 59 U/L (40-130) 01/24/22 04:50 Troponin T Baseline 92 ng/L (0-15) H 01/23/22 11:59 Troponin T 120 Minute 83.91 ng/L (0-15) H 01/23/22 13:47 Delta Troponin T -8.09 ABS# (0-10) L 01/23/22 13:47 Troponin T Hi Sens 6Hr 61.42 ng/L (0-15) H 01/23/22 18:50 Troponin T Hi Sens 6Hr Delta -30.58 ng/L (0-12) L 01/23/22 18:50 C-Reactive Protein 8.2 mg/L (0.0-4.9) H 01/23/22 11:59 NT-Pro-B Natriuret Pep 5847 pg/mL (0-125) H 01/23/22 11:59 Total Protein 5.9 g/dL (6.6-8.7) L 01/24/22 04:50 Albumin 3.2 g/dL (3.5-5.2) L 01/24/22 04:50 Globulin 2.7 g/dL (1.3-4.6) 01/24/22 04:50 Procalcitonin 0.11 ng/mL (0-0.5) 01/24/22 04:50 U Random Total Protein 40 mg/dL 01/23/22 19:10 Ur Random Sodium 39 mmol/L 01/23/22 19:10 Urine Creatinine 238 mg/dL (39-259) 01/23/22 19:10 Radiology Impressions Renal Ultrasound 01/23/22 16:37 IMPRESSION: Unremarkable kidneys and bladder. Head CT 01/23/22 19:40 IMPRESSION: 1. Mild bilateral paranasal sinus disease. 2. No acute intracranial findings. Chest X-Ray 01/24/22 00:57 IMPRESSION: 1. Interval removal of right internal jugular line. 2. Interval placement of left central line with tip over the left brachycephalic vein. Impression. ADDENDUM: 01/24/22 0229 THIS REPORT CONTAINS FINDINGS THAT MAY BE CRITICAL TO PATIENT CARE. The findings were verbally communicated via telephone conference with DEMARCO YUAN at 2:27 AM CDT on 01/24/2022. The findings were acknowledged and understood. Chest CT 01/24/22 02:25 IMPRESSION: 1. The distal portion of the left internal jugular line appears to be in the fat plane between the left brachycephalic vein in the left clavicle. Possibly extraluminal position. Axial series 3, images 5-13. 2. Normal appearing bilateral brachycephalic veins and right-sided superior vena cava. 3. Severe calcified coronary artery disease. 4. Bilateral pleural fluid collections with pneumonia/atelectasis in the dependent portions of the lungs. ADDENDUM: 01/24/22 0401 THIS REPORT CONTAINS FINDINGS THAT MAY BE CRITICAL TO PATIENT CARE. The findings were verbally communicated via telephone conference with DEMARCO YUAN at 3:59 AM CDT on 01/24/2022. The findings were acknowledged and understood. Venous Duplex 01/24/22 22:39 IMPRESSION: No evidence of deep vein thrombosis. Recent Clincial Data Last Vital Signs Temp 97.9 F 01/24/22 04:00 Pulse 67 01/24/22 05:00 Resp 16 01/24/22 03:01 BP 99/61 01/24/22 05:00 Pulse Ox 91 01/24/22 05:00 O2 Del Method 01/24/22 05:00 O2 Flow Rate 6 01/23/22 11:34 FiO2 100 01/24/22 03:01 Vital Signs Temp Pulse Resp BP Pulse Ox O2 Del Method FiO2 01/24/22 04:00 97.9 F 01/24/22 05:00 67 99/61 91 Mechanical Ventilation 01/24/22 04:45 63 105/59 91 Mechanical Ventilation 01/24/22 04:30 65 92/54 90 Mechanical Ventilation 01/24/22 04:15 64 95/54 89 L Mechanical Ventilation 01/24/22 04:00 67 89 L Mechanical Ventilation 01/24/22 03:45 68 90 Mechanical Ventilation 01/24/22 03:30 Mechanical Ventilation 01/24/22 03:15 106/63 Mechanical Ventilation 01/24/22 03:00 63 16 100/66 91 Mechanical Ventilation 01/24/22 02:45 63 16 100/66 91 Mechanical Ventilation 01/24/22 02:30 67 16 109/65 91 Mechanical Ventilation 01/24/22 03:01 63 16 91 Mechanical Ventilation 100 01/24/22 03:00 16 91 100 01/24/22 02:15 67 16 124/77 92 Mechanical Ventilation 01/24/22 02:00 108/81 98 Mechanical Ventilation 01/24/22 01:45 112/89 100 Mechanical Ventilation 01/24/22 01:30 75 22 H 110/68 91 Mechanical Ventilation 01/24/22 01:15 130/79 97 Mechanical Ventilation 01/24/22 01:00 68 16 117/72 89 L Mechanical Ventilation 01/24/22 00:45 69 19 H 110/71 90 Mechanical Ventilation 01/24/22 00:30 69 18 90 Mechanical Ventilation 01/24/22 00:15 70 18 110/67 90 Mechanical Ventilation 01/24/22 00:00 71 14 90 Mechanical Ventilation 01/23/22 23:45 69 16 91 Mechanical Ventilation 01/23/22 23:30 Mechanical Ventilation 01/23/22 23:15 124/83 Mechanical Ventilation 01/23/22 23:00 75 121/77 95 Mechanical Ventilation 01/23/22 22:45 66 121/80 93 Mechanical Ventilation 01/23/22 23:01 71 16 93 Mechanical Ventilation 100 01/23/22 23:01 16 93 100 01/23/22 22:30 67 124/82 93 Mechanical Ventilation 01/23/22 22:15 64 118/79 92 Mechanical Ventilation 01/23/22 22:00 56 L 16 97/73 98 Mechanical Ventilation 01/23/22 21:45 65 21 H 103/64 90 Mechanical Ventilation 01/23/22 21:30 65 118/80 91 Mechanical Ventilation 01/23/22 21:15 65 117/75 91 Mechanical Ventilation 01/23/22 21:00 65 120/82 91 Mechanical Ventilation 01/23/22 22:00 65 01/23/22 18:11 61 01/23/22 21:23 97.9 F 01/23/22 20:45 96.4 F L 64 119/83 91 Mechanical Ventilation 01/23/22 20:30 65 118/81 92 Mechanical Ventilation 01/23/22 20:15 62 118/80 Mechanical Ventilation 01/23/22 20:00 62 114/80 91 Mechanical Ventilation 01/23/22 19:45 64 117/79 91 Mechanical Ventilation 01/23/22 19:30 65 116/78 91 Mechanical Ventilation 01/23/22 19:15 67 119/81 90 Mechanical Ventilation 01/23/22 19:00 64 16 121/77 89 L Mechanical Ventilation 01/23/22 19:28 100 01/23/22 19:11 67 16 90 Mechanical Ventilation 100 01/23/22 19:11 16 90 100 01/23/22 18:45 64 21 H 132/90 89 L 01/23/22 18:30 63 17 118/88 90 01/23/22 18:00 64 21 H 132/90 01/23/22 18:00 Mechanical Ventilation 01/23/22 18:25 16 91 100 01/23/22 18:20 66 19 H 118/88 90 01/23/22 18:15 69 21 H 116/77 90 01/23/22 18:10 116/77 87 L 01/23/22 18:05 113/81 01/23/22 18:00 113/81 01/23/22 17:55 113/81 01/23/22 17:50 65 18 113/81 86 L 01/23/22 18:29 66 16 118/88 91 Intake & Output/Weight 01/21/22 01/22/22 01/23/22 01/24/22 06:59 06:59 06:59 06:59 Intake Total 2590.302 / 2590.302 Output Total 1000 / 1000 Balance 1590.302 / 1590.302 Weight 141 kg Vitals Last Vital Signs Temp 97.9 F 01/24/22 04:00 Pulse 67 01/24/22 05:00 Resp 16 01/24/22 03:01 BP 99/61 01/24/22 05:00 Pulse Ox 91 01/24/22 05:00 O2 Del Method 01/24/22 05:00 O2 Flow Rate 6 01/23/22 11:34 FiO2 100 01/24/22 03:01 TS Medications Medications Acetaminophen (Acetaminophen 325 Mg Tablet) 650 mg PO Q6H PRN PRN Reason: Mild/Mod Pain Or Temp >/= 101 Albuterol/Ipratropium (Ipratropium-Albuterol 3 Ml Neb) 3 ml INHALATION Q4H.RESPIRATORY KHRIS Last Admin: 01/24/22 03:01 Dose: 3 ml Aspirin (Aspirin 81 Mg Ec Tablet) 81 mg PO DAILY KHRIS Atorvastatin Calcium (Atorvastatin 40 Mg Tablet) 80 mg PO DAILY KHRIS Bisacodyl (Bisacodyl 5 Mg Tablet) 10 mg PO DAILY PRN; Protocol PRN Reason: Constipation (see protocol) Chlorhexidine Gluconate (Chlorhexidine Gluconate 4% Btl 118 Ml) 1 applic TOPICAL DAILY [facility] Last Admin: 01/24/22 05:36 Dose: 1 applic Clopidogrel Bisulfate (Clopidogrel 75 Mg Tablet) 75 mg PO DAILY [facility] Enoxaparin Sodium (Enoxaparin 150 Mg/Ml Syringe) 140 mg SUBCUT Q12H [facility] Last Admin: 01/24/22 02:43 Dose: 140 mg Propofol (Diprivan) 1,000 mg in 100 mls @ 0 mls/hr IV .Q0M [facility]; Protocol Last Admin: 01/24/22 04:02 Dose: 40 mcg/kg/min, 33.84 mls/hr Fentanyl 1,000 mcg/ Sodium (Chloride) 100 mls @ 0 mls/hr IV .Q0M [facility]; Protocol Last Titration: 01/24/22 01:30 Dose: 50 mcg/hr, 5 mls/hr Ceftriaxone Sodium 1,000 mg/ (Sodium Chloride) 50 mls @ 100 mls/hr IV Q24H [facility]; Protocol Last Infusion: 01/23/22 20:41 Dose: Infused Azithromycin 500 mg/ Sodium (Chloride) 250 mls @ 250 mls/hr IV Q24H [facility]; Protocol Last Infusion: 01/23/22 20:00 Dose: Infused Methylprednisolone Sodium Succinate (Methylprednisolone Sod Succ 125 Mg/2 Ml Inj) 60 mg IVP Q8H [facility] Last Admin: 01/24/22 04:08 Dose: 60 mg Ondansetron HCl (Ondansetron 2 Mg/Ml Sdv 2 Ml) 4 mg IVP Q8H PRN PRN Reason: vomiting, or N/V if npo Discontinued Medications Albuterol Sulfate (Albuterol 2.5 Mg/0.5 Ml Neb) 2.5 mg INHALATION ONCE ONE Stop: 01/23/22 12:10 Last Admin: 01/23/22 12:42 Dose: 2.5 mg Albuterol/Ipratropium (Ipratropium-Albuterol 3 Ml Neb) 3 ml INHALATION ONCE ONE Stop: 01/23/22 11:25 Last Admin: 01/23/22 11:30 Dose: 3 ml Etomidate (Etomidate 2 Mg/Ml Inj) 30 mg IVP ONCE ONE Stop: 01/23/22 12:19 Last Admin: 01/23/22 13:07 Dose: 30 mg Etomidate (Etomidate 2 Mg/Ml Inj) 20 mg IVP NOW ONE Stop: 01/23/22 15:57 Last Admin: 01/23/22 15:56 Dose: 20 mg Heparin Sodium (Porcine) (Heparin 5,000 Unit/Ml Inj 1 Ml) 5,000 unit SUBCUT Q8H [facility] Last Admin: 01/23/22 18:42 Dose: 5,000 unit Sodium Chloride (Sodium Chloride 0.9%) 1,000 mls @ 999 mls/hr IV .Q1H1M ONE Stop: 01/23/22 13:54 Last Infusion: 01/23/22 16:20 Dose: Infused Dexmedetomidine/Sodium Chloride (Precedex) 400 mcg in 100 mls @ 0 mls/hr IV .Q0M [facility]; Protocol Last Titration: 01/23/22 16:53 Dose: 0.03 mcg/kg/hr, 0.9 mls/hr Sodium Chloride (Sodium Chloride 0.9%) 1,000 mls @ 999 mls/hr IV .Q1H1M ONE Stop: 01/23/22 15:46 Last Admin: 01/23/22 18:43 Dose: Not Given Sodium Chloride (Sodium Chloride 0.9%) 1,000 mls @ 999 mls/hr IV .Q1H1M ONE Stop: 01/23/22 19:45 Last Infusion: 01/23/22 20:00 Dose: Infused Sodium Chloride (Sodium Chloride 0.9%) 1,000 mls @ 100 mls/hr IV .Q10H [facility] Last Admin: 01/23/22 20:38 Dose: Not Given Sodium Chloride (Sodium Chloride 0.9%) 1,000 mls @ 75 mls/hr IV .[id number] [facility] Stop: 01/24/22 09:51 Last Admin: 01/23/22 20:00 Dose: 75 mls/hr Methylprednisolone Sodium Succinate (Methylprednisolone Sod Succ 125 Mg/2 Ml Inj) 125 mg IVP ONCE ONE Stop: 01/23/22 12:10 Last Admin: 01/23/22 12:40 Dose: 125 mg Midazolam HCl (Midazolam 1 Mg/Ml Inj 2 Ml) 5 mg IVP ONCE ONE Stop: 01/23/22 16:18 Last Admin: 01/23/22 16:44 Dose: Not Given Midazolam HCl (Midazolam 1 Mg/Ml Inj 2 Ml) 2 mg IVP ONCE ONE Stop: 01/23/22 16:32 Last Admin: 01/23/22 16:36 Dose: 2 mg Succinylcholine Chloride (Succinylcholine 20 Mg/Ml Sdv 10ml) 150 mg IV ONCE ONE Stop: 01/23/22 12:19 Last Admin: 01/23/22 13:07 Dose: 150 mg Succinylcholine Chloride (Succinylcholine 20 Mg/Ml Sdv 10ml) 150 mg IV ONCE ONE Stop: 01/23/22 15:57 Last Admin: 01/23/22 15:56 Dose: 150 mg Allergies No Known Allergies Allergy (Verified 01/07/22 07:51) Home Medications nitroglycerin 0.4 mg sublingual tablet 0.4 mg sublingual Q5M PRN Chest Pain 05/23/19 [History Confirmed 01/23/22] aspirin 81 mg tablet,delayed release 81 mg PO DAILY 06/05/19 [History Confirmed 01/23/22] carvedilol 25 mg tablet 25 mg PO BID #180 tabs 01/07/22 [Rx Confirmed 01/23/22] clopidogrel 75 mg tablet 75 mg PO DAILY #90 tabs 01/07/22 [Rx Confirmed 01/23/22] hydrochlorothiazide 50 mg tablet 50 mg PO DAILY 90 days #90 tabs 01/07/22 [Rx Confirmed 01/23/22] ipratropium 20 mcg-albuterol 100 mcg/actuation mist for inhalation (Combivent Respimat) 1 puff inhalation Q4H PRN shortness of breath or wheezing #4 grams 01/07/22 [Rx Confirmed 01/23/22] lisinopril 20 mg tablet 20 mg PO BID #180 tabs 01/07/22 [Rx Confirmed 01/23/22] rosuvastatin 40 mg tablet 40 mg PO DAILY 90 days #90 tabs 01/07/22 [Rx Confirmed 01/23/22] Discharge Plan Discharge Patient Disposition: Xfer Short-Term Hosp Condition: Critical Prescriptions: No Action aspirin 81 mg tablet,delayed release (DR/EC) 81 mg PO DAILY nitroglycerin 0.4 mg tablet, sublingual 0.4 mg SUBLINGUAL Q5M PRN (Reason: Chest Pain) carvedilol 25 mg tablet 25 mg PO BID Qty: 180 2RF clopidogrel 75 mg tablet 75 mg PO DAILY Qty: 90 2RF rosuvastatin 40 mg tablet 40 mg PO DAILY 90 Days Qty: 90 3RF lisinopril 20 mg tablet 20 mg PO BID Qty: 180 2RF hydrochlorothiazide 50 mg tablet 50 mg PO DAILY 90 Days Qty: 90 1RF Combivent Respimat 20-100 mcg/actuation mist 1 puff inhalation Q4H PRN (Reason: shortness of breath or wheezing) Qty: 4 5RF Referrals: Jazzy Hendricks MD [Primary Care Provider] - Patient Instructions: Opioid Safety Transfer Attestations Time Spent in Transfer Care: greater than 30 min Quality Metrics Clinical Quality Measures [ Acute Myocardial Infaction { Clinical Trial Participant: No; Contraindication to aspirin: None; Aspirin prescribed; Contraindication to statin: None; Statin prescribed; Contraindication to PCI: Intervention not indicated;}] Coding Level of Care Code Acute Post Acute Care Registered Nurse for Chg Fwd Diagnoses Acute on chronic respiratory failure with hypoxia and hypercapnia J96.21; J96.22 COPD (chronic obstructive pulmonary disease) J44.9 CHF (congestive heart failure), NYHA class III I50.9 Congestive heart failure type: unspecified Dyslipidemia (high LDL; low HDL) E78.5 HTN (hypertension) I10 Hypertension type: essential hypertension CAD S/P percutaneous coronary angioplasty I25.10; Z98.61 Acute kidney injury superimposed on CKD N17.9; N18.9 NSTEMI (non-ST elevated myocardial infarction) I21.4
--- NOTE | 2022-01-24 06:23 | PC.NURSE ---
0600 Received bed from [facility]. [address], bed 3323-1. Report called to Marta Ramírez. Air Vac Called @0610, Spoke w/ Mine. Air Vac declined bc weather. Ground ambulance Fred Tatum called. Fred Tatum accepted. ETA 0700.
[2022-01-24 07:09] LABS: Adenovirus Not Detected (NOT DETECT); Chlamydia Pneumoniae Not Detected (NOT DETECT); Coronavirus 229E,HKU1,NL63,OC4 Not Detected (NOT DETECT); Human Metapneumovirus Not Detected (NOT DETECT); Human Rhinovirus/Enterovirus Not Detected (NOT DETECT); Influenza A Not Detected (NOT DETECT); Influenza A H1 Not Detected (NOT DETECT); Influenza A H1-2009 Not Detected (NOT DETECT); Influenza A H3 Not Detected (NOT DETECT); Influenza B Not Detected (NOT DETECT); Mycoplasma Pneumoniae Not Detected (NOT DETECT); Parainfluenza Virus Type 1 Not Detected (NOT DETECT); Parainfluenza Virus Type 2 Not Detected (NOT DETECT); Parainfluenza Virus Type 3 Not Detected (NOT DETECT); Parainfluenza Virus Type 4 Not Detected (NOT DETECT); Respiratory Syncytial Virus A Not Detected (NOT DETECT); Respiratory Syncytial Virus B Not Detected (NOT DETECT); SARS-COV-2 Not Detected (NOT DETECT)
--- NOTE | 2022-01-24 08:09 | PM.PN ---
Subjective Subjective: Overnight events noted, patient, vitals and labs have been reviewed. Currently he is being transferred to [facility], for possible vascular intervention. Medications: Medication Review Details: Generic Name Dose Route Start Last Admin Trade Name Malissa PRN Reason Stop Dose Admin Albuterol/Ipratrop ium 3 ml 01/23/22 16:45 01/24/22 03:01 Ipratropium-Albu terol 3 Ml Neb INHALATION 3 ml Q4H.RESPIRATORY S CH Administration Chlorhexidine Gluc jordin 1 applic 01/24/22 01:00 01/24/22 05:36 Chlorhexidine Gl uconate 4% Btl 118 Ml TOPICAL 1 applic DAILY KHRIS Administration Enoxaparin Sodium 140 mg 01/24/22 02:30 01/24/22 02:43 Enoxaparin 150 M g/Ml Syringe SUBCUT 140 mg Q12H [facility]IS Administration Propofol 1,000 mg in 100 m ls @ 0 mls/hr 01/23/22 16:45 01/24/22 04:02 Diprivan IV 40 mcg/kg/min .Q0M K[facility]IS 33.84 mls/hr Administration Protocol Per Protocol Fentanyl 1,000 mcg / Sodium 100 mls @ 0 mls/h r 01/23/22 16:45 01/24/22 01:30 Chloride IV 50 mcg/hr .Q0M K[facility]IS 5 mls/hr Titration Protocol Per Protocol Ceftriaxone Sodium 1,000 mg/ 50 mls @ 100 mls/ hr 01/23/22 18:00 01/23/22 20:41 Sodium Chloride IV Infused Q24H [facility]IS Infusion Protocol Azithromycin 500 m g/ Sodium 250 mls @ 250 mls /hr 01/23/22 17:00 01/23/22 20:00 Chloride IV Infused Q24H [facility]IS Infusion Protocol Methylprednisolone Sodium Succinate 60 mg 01/23/22 20:00 01/24/22 04:08 Methylprednisolo ne Sod Succ 125 Mg /2 Ml Inj IVP 60 mg Q8H [facility]IS Administration Vitals/I&O/Wt Last Vital Signs Temp 98.0 F 01/24/22 06:00 Pulse 64 01/24/22 06:30 Resp 16 01/24/22 05:53 BP 105/58 01/24/22 06:30 Pulse Ox 89 L 01/24/22 06:30 O2 Del Method 01/24/22 06:30 O2 Flow Rate 6 01/23/22 11:34 FiO2 100 01/24/22 05:53 01/23/22 01/24/22 01/24/22 22:59 06:59 14:59 Intake Total 2381.569 / 2381.569 208.733 / 2590.302 Output Total 1000 / 1000 750 / 1750 Balance 1381.569 / 1381.569 -541.267 / 840.302 Weight last 48 hrs Weight 141.067 kg Weight 141 kg Physical Exam HENMT: COMMON NORMALS: normocephalic and atraumatic HEAD & SCALP: normocephalic and atraumatic Resp: COMMON NORMALS: clear to auscultation bilaterally EFFORT & INSPECTION: Yes symmetric chest movement AUSCULTATION: clear to auscultation bilaterally Cardio: COMMON NORMALS: regular rate, regular rhythm, S1 normal heart sound present, S2 normal heart sound present, No gallops present (Cardio), No murmurs present (Cardio), No rub (Cardio) and Peripheral pulses 2+ throughout RATE: regular rate RHYTHM: regular rhythm HEART SOUNDS: S1 normal heart sound present and S2 normal heart sound present PERIPHERAL PULSES: Peripheral pulses 2+ throughout GI: COMMON NORMALS: Normal to inspection, nondistended, normoactive bowel sounds present, Soft to palpation, non-tender, No hepatosplenomegaly present and no masses AUSCULTATION: Yes normoactive bowel sounds PALPATION: Yes Soft to palpation and Yes No hepatosplenomegaly present RECTAL EXAM: Yes deferred Extremity: COMMON NORMALS: no clubbing, cyanosis or edema and no pedal edema Data : 01/24/22 04:50 01/24/22 04:50 Micro: Microbiology 01/23/22 18:50 Blood Culture - Preliminary Blood SPECIMEN COLLECTED 01/23/22 19:00 Blood Culture - Preliminary Blood SPECIMEN COLLECTED A&P Assessment and plan (1) Acute on chronic respiratory failure with hypoxia and hypercapnia: (2) COPD (chronic obstructive pulmonary disease): (3) CHF (congestive heart failure), NYHA class III: Qualifiers: Congestive heart failure type: unspecified Qualified Code(s): I50.9 - Heart failure, unspecified (4) Dyslipidemia (high LDL; low HDL): (5) HTN (hypertension): Qualifiers: Hypertension type: essential hypertension Qualified Code(s): I10 - Essential (primary) hypertension (6) CAD S/P percutaneous coronary angioplasty: (7) Acute kidney injury superimposed on CKD: (8) NSTEMI (non-ST elevated myocardial infarction): Plan 66 year old male with PMH of HTN, COPD, CAD S/P PCI , Out of hospital V.Fib arrest s/p resuscitation in 2019 was [facility] from [facility] with c/o of ongoing fatigue as well as weakness, there he was found to be hypoxic with his o2 saturation in 30s as well as SBP in 80s, he was sent to the ER upon arrival in the ER he 02 sats were in 80s and initially non invasive ventilation was tried,based on his initial abgs, but later he had to be intubated given no significant improvement on NIV. Assessment : Respiratory failure with hypoxia and hypercapnia likely secondary to COPD exacerbation/pneumonia NSTEMI CHRISTIANO ON CKD : Possibly prerenal: With possible contribution from: Lisinopril / hydrochlorothiazide CAD S/P PCI HTN Likely undiagnosed COPD DLD Plan : 2D echo: Results appreciated.There is likely mild decrease in left ventricular function.Wall motion disturbances cannot be properly assessed.? Diastolic function cannot be assessed.? The overall ejection fraction is probably in the 45 to 50% range. The right ventricle appears to be slightly enlarged. Mildly increased right atrial size. Mildly increased left atrial size. CT chest without contrast: The distal portion of the left internal jugular line appears to be in the fat plane between the left brachycephalic vein in the left clavicle Possibly extraluminal position. Lower extremity Doppler negative for DVT Renal ultrasound: Unremarkable kidneys and bladder. Urine random sodium: 39 Urine random creatinine: 238 Urine random total protein: 40 FENA:0.3 : Prerenal CHRISTIANO UPCR Blood culture Urine culture Sputum gram stain and culture Urine Legionella antigen Bacterial antigen specialty development consultant ABG Monitor x-ray chest Duo nebs Solu-Medrol 60 IV every 8 Currently on ceftriaxone azithromycin Monitor intake output charting Continue aspirin, Plavix and statin Patient was started on therapeutic anticoagulation overnight: For possible PE: As 2D echo showed: Slightly enlarged RV, new from prior echo, and also possible Salazar sign. IV hydration Avoid nephrotoxic CODE STATUS: Full code DVT prophylaxis: On heparin Attestations Medical Necessity Statement*: Patient is being transferred to [facility]. Coding Level of Care Code Acute Assistant Chief Nursing Officer for g Fwd Exam Detailed Diagnoses Acute on chronic respiratory failure with hypoxia and hypercapnia J96.21; J96.22 COPD (chronic obstructive pulmonary disease) J44.9 CHF (congestive heart failure), NYHA class III I50.9 Congestive heart failure type: unspecified Dyslipidemia (high LDL; low HDL) E78.5 HTN (hypertension) I10 Hypertension type: essential hypertension CAD S/P percutaneous coronary angioplasty I25.10; Z98.61 Acute kidney injury superimposed on CKD N17.9; N18.9 NSTEMI (non-ST elevated myocardial infarction) I21.4
--- NOTE | 2022-01-24 08:27 | PC.NURSE ---
Patient was discharged to EMS staff for transfer. All medications still running per MAY and ventilator setting kept the same. All vital signs WNL. Belongings sent with patient.
--- NOTE | 2022-01-24 22:39 | USR_ITS ---
PROCEDURE INFORMATION: Exam: US Duplex Left Lower Extremity Veins, Limited Exam date and time: 01/24/2022 1:48 AM Age: 66 years old Clinical indication: Swelling (edema) of limb; Lower extremity, left; Additional info: R/O dvt TECHNIQUE: Imaging protocol: Real-time Duplex ultrasound of the Left Lower Extremity with 2-D chin scale, color Doppler flow and spectral waveform analysis with image documentation. Limited exam focused on the left lower extremity veins. COMPARISON: US renal BI* [id number] 01/23/2022 4:50 PM FINDINGS: Left deep veins: Unremarkable. The common femoral, femoral, proximal profunda femoral and popliteal veins are patent without thrombus. Normal Doppler waveforms. Normal compressibility and/or augmentation response. Left superficial veins: Unremarkable. Saphenofemoral junction is patent without thrombus. Soft tissues: Unremarkable. US/CV venous duplex [facility] [id number] IMPRESSION: No evidence of deep vein thrombosis.
== END 2022-01-24 08:00 | disposition short-term general hospital (02) | DRG 208 ==
LOC: ER 16:20 → ICU 16:33
PROVIDERS: Internal Medicine; Admitting Provider Internal Medicine; Emergency Provider Student in an Organized Health Care Education/Training Program; PCP Family Medicine; Visit Provider Internal Medicine
DX: J96.21 Acute and chronic respiratory failure with hypoxia (principal); J18.9 Pneumonia, unspecified organism; I21.4 Non-ST elevation (NSTEMI) myocardial infarction; N17.9 Acute kidney failure, unspecified; I13.0 Hypertensive heart and chronic kidney disease with heart failure and stage 1 through stage 4 chronic kidney disease, or unspecified chronic kidney disease; J44.1 Chronic obstructive pulmonary disease with (acute) exacerbation; I50.32 Chronic diastolic (congestive) heart failure; N18.9 Chronic kidney disease, unspecified; J96.22 Acute and chronic respiratory failure with hypercapnia; E78.5 Hyperlipidemia, unspecified; I25.10 Atherosclerotic heart disease of native coronary artery without angina pectoris; Z95.5 Presence of coronary angioplasty implant and graft; Z87.891 Personal history of nicotine dependence; Z79.01 Long term (current) use of anticoagulants; Z79.02 Long term (current) use of antithrombotics/antiplatelets
CPT/HCPCS: 31500; 36415; 36556; 36600; 70450; 71045; 71250; 76770; 80051; 80053; 82330; 82575; 82803; 82805; 83605; 83735; 83880; 84100; 84145; 84156; 84300; 84484; 85025; 85378; 85610; 85730; 86140; 86403; 87040; 87070; 87205; 87449; 87635; 93005; 93306; 93971; 94002; 94640; 94660; 94799; 96365; 96366; 96367; 96372; 99291; 99292; A4570; C1751; J0330; J0456; J0696; J1644; J1650; J2250; J2704; J2930; J3010; J3490; J7030; J7050; J7611

== ENCOUNTER → 2022-07-08 09:34 | Outpatient (BNVA) | payer MEDICARE, SELFPAY | PROVIDERS: PCP Family Medicine; Visit Provider Family Medicine | DX: E78.5 Hyperlipidemia, unspecified (principal); I10 Essential (primary) hypertension; I50.9 Heart failure, unspecified; I25.10 Atherosclerotic heart disease of native coronary artery without angina pectoris; Z98.61 Coronary angioplasty status | CPT/HCPCS: 80053; 80061; 83880 ==

== ENCOUNTER → 2022-08-20 10:07 | Outpatient (BNVA) | payer MEDICARE, SELFPAY | PROVIDERS: PCP Family Medicine; Visit Provider Internal Medicine Cardiovascular Disease | DX: I11.0 Hypertensive heart disease with heart failure (principal); I50.9 Heart failure, unspecified; I25.10 Atherosclerotic heart disease of native coronary artery without angina pectoris; E78.5 Hyperlipidemia, unspecified; Z87.891 Personal history of nicotine dependence | CPT/HCPCS: 99214 ==

== ENCOUNTER 2022-12-16 17:26 | Inpatient (IN) | payer MEDICARE, SELFPAY ==
[2022-12-16] VITALS (36 sets, daily range): BP systolic 101–146; BP diastolic 63–97; PULSE 63–99; RESP 15–31; TEMP 36.7; O2SAT 73–98; BMI 45.6
--- NOTE | 2022-12-16 17:36 | ECG_ITS ---
[facility] Test Date: 2022-12-16 Pat Name: Kentrell Hubbard Department: Room: Gender: Male [employer]: : [id number] Requested By: Dewey Minaya Order Number: [id number] Marcio MD: Maxim Wadsworth M.D. Measurements Intervals [place] Rate: 68 P: 47 KS: 172 QRS: 59 QRSD: 120 T: 48 QT: 345 QTc: 367 Interpretive Statements SINUS RHYTHM WITH OCCASIONAL VENTRICULAR PREMATURE COMPLEXES MODERATE INTRAVENTRICULAR CONDUCTION DELAY [110+ ms QRS DURATION] NONSPECIFIC ST ELEVATION [0.05+ mV ST ELEVATION] Compared to ECG 01/23/2022 23:02:52 Ventricular premature complex(es) now present ST (T wave) deviation now present T-wave abnormality no longer present Possible ischemia no longer present Electronically Signed On 12-16-2022 21:42:38 CDT by Maxim Wadsworth M.D. [id number]
--- NOTE | 2022-12-16 17:44 | W.ED.SOB ---
HPI - SOB/Dyspnea General: Chief Complaint: Shortness of Breath/Dyspnea Stated Complaint: SOB Time Seen by Provider: 12/16/22 17:42 Source: patient Mode of arrival: ambulatory History of Present Illness: HPI Narrative: This 67-year-old presents to the ER with progressively worsening shortness of breath that started about a week ago. It got worse today, prompting him to come to the ER. Patient presents very hypoxic with oxygen saturation in the 70s. He is also tachypneic and using accessory muscles to breathe. He denies any prior history of congestive heart failure or COPD. He recalls how he had a similar episode of shortness of breath last year that got him admitted in the hospital for about a week. Patient states that he was not told exactly what the problem was. He reports having a fever the other day of 101. Patient has no chest pain, denies nausea or vomiting. Review of his records shows that he is on DuoNeb, furosemide, carvedilol among other medications at home. Patient's son later confirmed that his admission last year was due to COPD exacerbation. In addition, patient has had a cardiac arrest in the past. Associated symptoms: Reports chest congestion and fever(s); Deny chest pain or lightheadedness Review of Systems Const: Reports: fever(s) Eyes: Denies: change in vision or eye discharge ENMT: Denies: throat pain, dental pain or nasal discharge Card: Denies: chest pain or lightheadedness Resp: Reports: dyspnea, productive cough and chest congestion : Denies: dysuria Musc: Denies: neck pain or back pain Neuro: Denies: headache(s) or weakness in extremities Psych: Denies: depression Isrrael/Lymph: Denies: easy bruising All/Imm: Denies: urticaria, tongue swelling or facial swelling PFSH ED PFSH: Medical History CAD S/P percutaneous coronary angioplasty CHF (congestive heart failure), NYHA class III Dyslipidemia (high LDL; low HDL) History of tobacco use HTN (hypertension) Hydrochlorothiazide and lisinopril discontinued due to hypotension. Surgical History History of appendectomy Family History Mother Hypertension CAD (coronary artery disease) Dementia Father Hypertension CAD (coronary artery disease) Family/Other CAD (coronary artery disease) Grandfather CAD (coronary artery disease) Grandmother CAD (coronary artery disease) Dementia Social History Smoking and tobacco status: former smoker Alcohol intake: never Substance/Drug Use: never Physical Exam Narrative: EXAM NARRATIVE: Severe respiratory distress with use of accessory muscles to breathe. Patient is diaphoretic. Const: COMMON NORMALS: patient oriented x3, no limitations and alert NUTRITIONAL APPEARANCE: obese morbidly obese HENMT: COMMON NORMALS: normocephalic HEAD & SCALP: normocephalic Eye: COMMON NORMALS: EOMs intact bilaterally Neck/C-Spine: COMMON NORMALS: full ROM and supple Chest: COMMONS NORMALS: normal inspection of the chest Resp: OTHER: Severe respiratory distress, tachypnea, use of accessory muscles to breathe. Prolonged expiratory phase. Terminal expiratory wheeze. Diminished breath sounds bilaterally. Cardio: COMMON NORMALS: regular rate, regular rhythm and No murmurs present (Cardio) RATE: regular rate RHYTHM: regular rhythm GI: COMMON NORMALS: Normal to inspection, nondistended, normoactive bowel sounds present and non-tender : COMMON NORMALS: Yes no CVA tenderness BLADDER/KIDNEY EXAM: Yes no CVA tenderness Back/Pelvis: COMMON NORMALS: no CVA tenderness and no thoracic nor lumbar tenderness Extremity: GENERAL: Yes normal exam except as noted OTHER: No pedal edema. Neuro: COMMON NORMALS: patient oriented x3 and no focal motor deficits SENSORIUM/ORIENTATION: Yes alert Psych: COMMON NORMALS: mental status grossly normal and cooperative Course Vital Signs: Vital signs: Vital Signs Pulse Rate 79 12/16/22 22:01 Respiratory Rate 23 H 12/16/22 19:12 Blood Pressure 101/73 12/16/22 19:12 Pulse Oximetry 98 12/16/22 22:01 Oxygen Delivery Me thod Oxymask 12/16/22 21:36 Fraction of Inspir ed Oxygen 65 12/16/22 22:01 MDM - SOB/Dyspnea Medical Decision Making Medical decision making: History as above. Patient's presentation and clinical findings are most consistent with COPD exacerbation. He will be admitted for further management. l Lab Data 12/16/22 17:45 12/16/22 17:45 Labs/Radiology: Radiology Impressions Chest X-Ray 12/16/22 17:45 IMPRESSION: Suspected ground-glass opacities in both lungs could represent multilobar pneumonia. Chest CT 12/16/22 19:56 IMPRESSION: 1. Diffuse scattered tree-in-bud opacities in both lungs. This most likely represents infectious bronchiolitis. Laboratory Results WBC 12.76 10^3/uL (3.29-11.43) H 12/16/22 17:45 RBC 5.68 10^6/uL (3.85-5.65) H 12/16/22 17:45 Hgb 17.40 g/dL (11.27-16.99) H 12/16/22 17:45 Hct 53.0 % (37-53) 12/16/22 17:45 MCV 93.3 fl (82-101) 12/16/22 17:45 MCH 30.6 pg (27-33) 12/16/22 17:45 MCHC 32.8 g/dL (30-55) 12/16/22 17:45 RDW 14.2 % (12.1-15.1) 12/16/22 17:45 Plt Count 290 10^3/cmm (157-399) 12/16/22 17:45 MPV 10.0 fL (7.4-10.4) 12/16/22 17:45 Neut % (Auto) 72.0 % 12/16/22 17:45 Lymph % (Auto) 11.4 % 12/16/22 17:45 [place] % (Auto) 15.8 % 12/16/22 17:45 Eos % (Auto) 0.1 % 12/16/22 17:45 Baso % (Auto) 0.2 % 12/16/22 17:45 Neut # (Auto) 9.21 10^3/uL (1.8-7.7) H 12/16/22 17:45 Lymph # (Auto) 1.5 10^3/uL (0.8-4.8) 12/16/22 17:45 [place] # (Auto) 2.0 10^3/uL (0.2-0.9) H 12/16/22 17:45 Eos # (Auto) 0.0 10^3/uL (0.0-0.8) 12/16/22 17:45 Baso # (Auto) 0.0 10^3/uL (0.0-0.1) 12/16/22 17:45 Nucleated RBC % (auto) 0.5 % 12/16/22 17:45 Nucleated RBCs # 0.1 /100WBC 12/16/22 17:45 PT 14.30 SECONDS (12.1-14.9) 12/16/22 17:45 INR 1.07 (0.8-1.2) 12/16/22 17:45 Specimen Type Arterial 12/16/22 17:42 Sample Site Rr 12/16/22 17:42 ABG pH 7.23 (7.35-7.45) L 12/16/22 17:42 ABG pCO2 74.9 mmHg (35-45) H* 12/16/22 17:42 ABG pO2 127.0 mmHg (80.0-100.0) H 12/16/22 17:42 ABG HCO3 31.1 mmol/L (22-26) H 12/16/22 17:42 ABG O2 Saturation 98.2 12/16/22 17:42 ABG Base Excess 0.5 mmol/L (-2.0-2.0) 12/16/22 17:42 [place] Test Pos 12/16/22 17:42 A-a O2 Gradient Not Reportable 12/16/22 17:42 Hematocrit 52.9 % (42-52) H 12/16/22 17:42 Hgb O2 Saturation 96.9 % (95-100) 12/16/22 17:42 Carboxyhemoglobin 1.3 %THgb (0.4-20.1) 12/16/22 17:42 Methemoglobin 0.1 % (0.4-1.5) L 12/16/22 17:42 Total Hemoglobin 17.3 g/dL (14-18) 12/16/22 17:42 Sodium 142.0 mmol/L (131-143) 12/16/22 17:42 Potassium 3.8 mmol/L (3.5-5.0) 12/16/22 17:42 Glucose 138.0 mg/dL (70-115) H 12/16/22 17:42 Ionized Calcium 1.3 mmol/L (1.1-1.4) 12/16/22 17:42 O2 Delivery Device Nc 12/16/22 17:42 Theology Teacher ID Glc 12/16/22 17:42 Blood Gas Notified Time 1750 12/16/22 17:42 Sodium 141 mmol/L (136-145) 12/16/22 17:45 Potassium 4.2 mmol/L (3.5-5.1) 12/16/22 17:45 Chloride 99 mmol/L (98-107) 12/16/22 17:45 Carbon Dioxide 29 mmol/L (22-29) 12/16/22 17:45 Anion Gap 17.2 (5-19) 12/16/22 17:45 BUN 37 mg/dL (8-23) H 12/16/22 17:45 Creatinine 1.3 mg/dL (0.7-1.2) H 12/16/22 17:45 GFR Calculation 55.2 mL/min (90-130) L 12/16/22 17:45 Glucose 129 mg/dL (65-115) H 12/16/22 17:45 POC Glucose 135 mg/dL (70-110) H 12/16/22 17:46 Calculated Osmolality 302 mOsm/kg (285-295) H 12/16/22 17:45 Lactic Acid 1.8 mmol/L (0.5-2.2) 12/16/22 17:45 Calcium 9.2 mg/dL (8.5-10.5) 12/16/22 17:45 Total Bilirubin 0.3 mg/dL (0.15-1.2) 12/16/22 17:45 AST 26 U/L (0-40) 12/16/22 17:45 ALT 18 U/L (0-41) 12/16/22 17:45 Alkaline Phosphatase 99 U/L (40-130) 12/16/22 17:45 Troponin T Baseline 110 ng/L (0-15) H* 12/16/22 17:45 NT-Pro-B Natriuret Pep 5603 pg/mL (0-125) H 12/16/22 17:45 Total Protein 6.8 g/dL (6.6-8.7) 12/16/22 17:45 Albumin 4.0 g/dL (3.5-5.2) 12/16/22 17:45 Globulin 2.8 g/dL (1.3-4.6) 12/16/22 17:45 Influenza Type A Ag negative (Negative) 12/16/22 18:33 Influenza Type B Ag negative (Negative) 12/16/22 18:33 SARS-CoV-2 Ag (Rapid) negative (Negative) 12/16/22 19:10 All radiology interpretation(s) finalized by discharge EKG Data EKG 1: Interpretation: Sinus rhythm with occasional PVCs. Rate of 68. Normal axis, normal intervals, no STEMI. Discharge Plan Discharge Patient Disposition: Admitted As Inpatient Admit Provider: Theron Dougherty Clinical Impression: Acute exacerbation of chronic obstructive airways disease, Congestive heart failure Condition: Stable Coding Level of Care Code ED [employer] Membership Sales Agent for Angelica Escalona
--- NOTE | 2022-12-16 17:45 | XRR_ITS ---
PROCEDURE INFORMATION: Exam: XR Chest Exam date and time: 12/16/2022 5:54 PM Age: 67 years old Clinical indication: Shortness of breath TECHNIQUE: Imaging protocol: Radiologic exam of the chest. Views: 1 view. COMPARISON: CT chest con [id number] 01/24/2022 3:25 AM FINDINGS: Lungs: Calcified granuloma in the right lung base. Ground-glass opacity suspected in the lung bases and peripheral right lung. Pleural spaces: Unremarkable. No pleural effusion. No pneumothorax. Heart/Mediastinum: Unremarkable. No cardiomegaly. Bones/joints: Unremarkable. XR/XR chest 1V portable [id number] IMPRESSION: Suspected ground-glass opacities in both lungs could represent multilobar pneumonia.
[2022-12-16 17:50] LABS: Glucose Point of Care 135 mg/dL (70-110)
[2022-12-16] MEDS: FUROsemide 10 mg/mL SDV 10mL 60 MG IVP (17:53)
[2022-12-16] MEDS: predniSONE 20 mg Tablet 60 MG PO (17:54)
[2022-12-16 17:55] LABS: Basophils % 0.2 %; Eosinophils % 0.1 %; Lymphocytes # 1.5 10^3/uL (0.8-4.8); Lymphocytes % 11.4 %; Mean Corpuscular HGB Conc 32.8 g/dL (30-55); Mean Corpuscular Hemoglobin 30.6 pg (27-33); Mean Corpuscular Volume 93.3 fl (82-101); Monocytes % 15.8 %; Neutrophils # 9.21 10^3/uL (1.8-7.7); Nucleated Red Blood Cells # 0.1 /100WBC; Nucleated Red Blood Cells % 0.5 %; Platelet Count 290 10^3/cmm (157-399); Red Blood Count 5.68 10^6/uL (3.85-5.65); Red Cell Distribution Width 14.2 % (12.1-15.1); White Blood Count 12.76 10^3/uL (3.29-11.43)
[2022-12-16 18:12] LABS: INR 1.07 (0.8-1.2)
[2022-12-16 18:16] LABS: Lactic Sepsis W/Reflex 1.8 mmol/L (0.5-2.2)
[2022-12-16] MEDS: ipratropium-albuterol 3 mL Neb INHALATION (18:17)
[2022-12-16 18:20] LABS: Troponin(5th) Baseline 110 ng/L (0-15)
[2022-12-16 18:26] LABS: Slide Review Slide Review Perform
[2022-12-16 18:41] LABS: ABG PH Result 7.23 (7.35-7.45)
[2022-12-16 18:42] LABS: ABG PCO2 74.9 mmHg (35-45); Base Excess ABG 0.5 mmol/L (-2.0-2.0); HCO3 ABG 31.1 mmol/L (22-26); Oxygen Saturation ABG 98.2
[2022-12-16 18:43] LABS: Blood Gas Allen Test POS; Blood Gas Operator Identificat GLC; Blood Gas Sample Type Arterial; Oxygen Device NC; Potassium Level - ABG 3.8 mmol/L (3.5-5.0)
[2022-12-16 18:44] LABS: Arterial Blood Gas Hematocrit 52.9 % (42-52); Blood Gas CCRB Time 1750; Blood Gas Sample Site RR; Carboxyhemoglobin 1.3 %THgb (0.4-20.1); HGB O2 Sat 96.9 % (95-100); Ionized Calcium Level - ABG 1.3 mmol/L (1.1-1.4); Methemoglobin 0.1 % (0.4-1.5); Total Hemoglobin 17.3 g/dL (14-18)
[2022-12-16 18:53] LABS: Alanine Aminotransferase 18 U/L (0-41); Alkaline Phosphatase 99 U/L (40-130); Anion Gap 17.2 (5-19); Aspartate Amino Transferase 26 U/L (0-40); Blood Urea Nitrogen 37 mg/dL (8-23); Calcium 9.2 mg/dL (8.5-10.5); Carbon Dioxide 29 mmol/L (22-29); Chloride 99 mmol/L (98-107); Globulin 2.8 g/dL (1.3-4.6); Glomerular Filtration Rate 55.2 mL/min (90-130); Glucose 129 mg/dL (65-115); NT Pro B Type Natriuretic Pept 5603 pg/mL (0-125); Osmolality Calculated 302 mOsm/kg (285-295); Potassium 4.2 mmol/L (3.5-5.1); Sodium 141 mmol/L (136-145); Total Bilirubin 0.3 mg/dL (0.15-1.2); Total Protein 6.8 g/dL (6.6-8.7)
[2022-12-16 18:59] LABS: Influenza A by IFA negative (Negative); Influenza B by IFA negative (Negative)
--- NOTE | 2022-12-16 19:05 | PC.NURSE ---
Report received from ELISA Brown at this time.
[2022-12-16] MEDS: levofloxacin-dextrose 5 % 750 MG/150 ML PREMIX 100 MG IV (19:24)
[2022-12-16 19:41] LABS: SARS Covid-2 Antigen negative (Negative)
--- NOTE | 2022-12-16 19:56 | CTR_ITS ---
PROCEDURE INFORMATION: Exam: CT Chest Without Contrast; Diagnostic Exam date and time: 12/16/2022 9:11 PM Age: 67 years old Clinical indication: Screening exam; Other screening; Prior surgery; Surgery date: 6+ months; Surgery type: Stents; Additional info: R/O pneumonia TECHNIQUE: Imaging protocol: Diagnostic computed tomography of the chest without contrast. Radiation optimization: All CT scans at this facility use at least one of these dose optimization techniques: automated exposure control; mA and/or kV adjustment per patient size (includes targeted exams where dose is matched to clinical indication); or iterative reconstruction. REPORTING DATA: Count of CT and Cardiac NM exams in prior 12 months: This patient has received 2 known CTs and 0 known cardiac nuclear medicine studies in the 12 months prior to the current study. COMPARISON: 1. CT chest wo con [id number] 01/24/2022 3:25 AM 2. CR (CHEST, ) 12/16/2022 5:54 PM RADIATION DOSE METRICS: Total DLP (mGy-cm): 908.21 FINDINGS: Lungs: Right lower lobe calcified granuloma. Scattered tree-in-bud type opacities throughout both lungs, greatest in the right upper lobe and left lower lobe. Mild atelectasis in the lung bases. Pleural spaces: Unremarkable. No pneumothorax. No pleural effusion. Heart: Heart size is normal. Coronary arteries: Mild coronary artery calcifications with a stent. Lymph nodes: Prominent mediastinal and hilar lymph nodes are most likely reactive. Calcified mediastinal and right hilar lymph nodes. Vasculature: Unremarkable. No aortic aneurysm. Diaphragm: Large hiatal hernia. Kidneys and ureters: Bilateral perinephric stranding is most likely physiologic. Bones/joints: Degenerative changes and Schmorl's nodes in the thoracic spine. Mild curvature. No acute fracture. Old rib fractures. Soft tissues: Unremarkable. CT/CT chest wo con [id number] IMPRESSION: 1. Diffuse scattered tree-in-bud opacities in both lungs. This most likely represents infectious bronchiolitis.
--- NOTE | 2022-12-16 21:24 | PC.NURSE ---
Pt was transported to ICU room 5 with paperwork and all belongings. Report was called to ELISA Lau.
--- NOTE | 2022-12-16 21:31 | ECG_ITS ---
[facility] Test Date: 2022-12-16 Pat Name: Kentrell Hubbard Department: Room: ICU05 Gender: Male Bradder: : 1955 Requested By: Dewey Minaya Order Number: [id number] Marcio MD: Maxim Wadsworth M.D. Measurements Intervals [place] Rate: 66 P: 41 AL: 163 QRS: 52 QRSD: 109 T: 37 QT: 389 QTc: 409 Interpretive Statements SINUS RHYTHM WITH SINUS ARRHYTHMIA Compared to ECG 12/16/2022 17:36:35 Ventricular premature complex(es) no longer present Intraventricular conduction delay no longer present ST (T wave) deviation no longer present Electronically Signed On 12-16-2022 21:42:44 CDT by Maxim Wadsworth M.D. [id number]
[2022-12-17] VITALS (101 sets, daily range): BP systolic 81–155; BP diastolic 59–97; PULSE 46–99; RESP 13–34; O2SAT 84–97
--- NOTE | 2022-12-17 00:03 | USCV_ITS ---
Kentrell Hubbard Age: 67 Gender: M : 1955 Exam Date: 12/17/2022 02:29 Ordering Phys: Rosaura Mueller MD Technologist: TAYLER Exam Location: [facility] [place] Indication: NSTEMI. hypoxia in the 70s at ER admit. Morbid obesity. Patient is on BIPAP in ICU-5. BP: 104 / 69 HR: 75 Rhythm: Sinus Technical Quality: Fair with OPTISON MEASUREMENTS (Male / Female) Normal Values 2D ECHO LV Diastolic Diameter PLAX 3.9 cm 4.2 - 5.9 / 3.9 - 5.3 cm LV Systolic Diameter PLAX 2.8 cm IVS Diastolic Thickness 1.7 cm 0.6 - 1.0 / 0.6 - 0.9 cm IVS Systolic Thickness 2.3 cm LVPW Diastolic Thickness 1.6 cm 0.6 - 1.0 / 0.6 - 0.9 cm LVPW Systolic Thickness 1.1 cm LVOT Diameter 2.2 cm LV Ejection Fraction 2D Teich 54.6 % LV Ejection Fraction MOD 2C 71.7 % LV Ejection Fraction 2C AL 71.1 % LA Diameter 4.3 cm LA Width 4.5 cm LA Height 5.7 cm Aorta at Sinotubular Diameter 3.5 cm IVC Diameter 2.8 cm M-MODE Aortic Annulus Diameter 3.6 cm LA Ao Ratio MM 1.3 MV E Point Septal Separation 0.6 cm DOPPLER AV Peak Velocity 92.0 cm/s LVOT Peak Velocity 80.0 cm/s AV Area Cont Eq vti 3.2 cm squared AV Area Cont Eq pk 3.3 cm squared MV Peak Velocity 79.0 cm/s MV Area PHT 1.8 cm squared Mitral E to A Ratio 0.6 MV E' Velocity 44.0 cm/s TR Peak Velocity 249.0 cm/s TR Peak Gradient 24.8 mmHg TV Peak E Velocity 50.0 cm/s Right Atrial Pressure 10.0 mmHg Pulmonary Artery Systolic Pressu 34.8 mmHg FINDINGS Left Ventricle Normal left ventricular size and systolic function, EF 68 %. No regional wall motion abnormalities. Grade I/IV diastolic dysfunction (abnormal relaxation filling pattern), normal to mildly elevated fillingpressures. Right Ventricle Appears to be mildly dilated with possibly normal ejection fraction Right Atrium Possibly of normal size Left Atrium Possibly of normal size Mitral Valve No gross no gross abnormalities noted abnormalities noted Aortic Valve No gross abnormalities noted Tricuspid Valve Tricuspid valve not well visualized. Pulmonic Valve Pulmonic valve not well visualized. Pericardium No pericardial effusion. Aorta Normal aortic annulus size. IVC Inferior vena cava not visualized. CONCLUSIONS Normal left ventricular size and systolic function, EF 68 %. No regional wall motion abnormalities. Grade I/IV diastolic dysfunction (abnormal relaxation filling pattern), normal to mildly elevated fillingpressures. No gross abnormalities noted in the aortic and mitral valves. The right ventricle appears to be mildly dilated with possibly normal ejection. There is no pericardial effusion. Technically difficult study because of the poor ultrasonic window. Had to use Optison as echo contrast to delineate the LV endocardium. Dr Bal Wiseman MD FACC (Electronically Signed) Final Date: 17 December 2022 11:24 S
[2022-12-17 00:06] LABS: Glucose Point of Care 132 mg/dL (70-110)
--- NOTE | 2022-12-17 00:11 | P.HP_ITS ---
Providers/Chief Complaint Admitting Physician: Theron Dougherty MD Primary Care Provider: Jazzy Hendricks MD Chief Complaint: SOB History of Present Illness Kentrell Hubbard is a 67 year old male with history of CAD, prior stenting, HFpEF, last EF 55-60% on TTE 06/2019, remote history of V. fib cardiac arrest in April 2019, at that time noted multivessel CAD, surgery necessary considered, but subsequently underwent multiple stent placement, former smoker, HTN, HLD was admitted with hypoxic respiratory failure, saturations in the 70s on arrival. He had been complaining of intermittent fever chills increasing shortness of breath and coughing bouts over the past week. He was tachypneic on admission, using accessory muscles to breathe. He was placed on BiPAP. ABG showed evidence of hypoxic hypercapnic respiratory failure. he was placed on Bipap ventilation which was raniently interrupted for a few minutes for transport to ICU. Initially upon presentation patient was alert awake and oriented but during the course of the evening he has become increasingly more disoriented. At time of reassessment at 11; 30 pm, he is now noted to be somolent. Moves all extremities while laying in bed, is very slow to follow commands, he is unable to answer any questions at this time. Repeat blood gases pending at the time of this dictation. Review of Systems General: Reports: 10 or more systems reviewed and unremarkable except in HPI and below Const: Denies: fever(s), chills or body aches Eyes: Denies: change in vision, blurry vision or photophobia ENMT: Reports: hoarseness; Denies: throat pain, enlarged tonsils, odynophagia or nasal congestion Card: Denies: chest pain, palpitations, irregular heart rhythm, edema, swelling of feet/ankles, lightheadedness, pre-syncope, dyspnea on exertion or orthopnea Resp: Denies: dyspnea, productive cough, non-productive cough, wheezing, stridor, pain on inspiration, change in phlegm color, hemoptysis or chest congestion GI: Denies: abdominal pain, nausea, vomiting, hematemesis, coffee ground emesis, dysphagia, heartburn, diarrhea, constipation, GI cramping, change in stool character, hematochezia or melena : Denies: flank pain, dysuria, urinary frequency, urinary urgency, urinary hesitancy or hematuria Musc: Denies: neck pain, back pain, extremity pain, joint swelling, joint warmth or deformity Neuro: Denies: headache(s), numbness in extremities, weakness in extremities, sensory changes, difficulty walking, frequent falls, dizziness, vertigo, behavioral changes, Slurred speech present or seizure-like activity Psych: Denies: anxiety, depression, suicidal ideation or homicidal ideation Endo: Denies: polyuria, polydipsia, tired all the time, cold intolerance or hot flashes Isr[place]/Lymph: Denies: easy bruising or easy bleeding Medications/Allergies Home Medications Medication Instructions Recorded Confirmed Last Taken Type nitroglycerin 0.4 mg sublingual 0.4 mg sublingual Q5M PRN Chest 05/23/19 07/08/22 Unknown History tablet Pain aspirin 81 mg tablet,delayed 81 mg PO DAILY 06/05/19 07/08/22 Unknown History release rosuvastatin 40 mg tablet 40 mg PO DAILY 90 days #90 tabs 01/07/22 07/08/22 Unknown Rx ipratropium 0.5 mg-albuterol 3 mg 3 ml inhalation QID PRN wheezing 05/06/22 07/08/22 Unknown Rx (2.5 mg base)/3 mL nebulization #180 mL soln miscellaneous medical supply See Rx Instructions miscellaneous 05/06/22 07/08/22 Unknown Rx .COMPLEX #1 ea clopidogrel 75 mg tablet 75 mg PO DAILY 90 days #90 tabs 07/09/22 07/09/22 Unknown Rx furosemide 40 mg tablet (Lasix) 40 mg PO QAM 90 days #90 tabs 07/09/22 07/09/22 Unknown Rx carvedilol 12.5 mg tablet 12.5 mg PO BID 90 days #180 tabs 07/30/22 Unknown Rx Allergies Allergy/AdvReac Type Severity Reaction Status Date / Time No Known Allergies Allergy Verified 07/08/22 07:30 PFSH Acute PFSH: Medical History CAD S/P percutaneous coronary angioplasty CHF (congestive heart failure), NYHA class III Dyslipidemia (high LDL; low HDL) History of tobacco use HTN (hypertension) Hydrochlorothiazide and lisinopril discontinued due to hypotension. Surgical History History of appendectomy Family History Mother Hypertension CAD (coronary artery disease) Dementia Father Hypertension CAD (coronary artery disease) Family/Other CAD (coronary artery disease) Grandfather CAD (coronary artery disease) Grandmother CAD (coronary artery disease) Dementia Social History Smoking and tobacco status: former smoker Alcohol intake: never Substance/Drug Use: never Vitals/I&O/Wt Last Vital Signs Pulse 79 12/16/22 22:01 Resp 23 H 12/16/22 19:12 BP 101/73 12/16/22 19:12 Pulse Ox 98 12/16/22 22:01 O2 Del Method Oxymask 12/16/22 21:36 FiO2 65 12/16/22 22:01 12/16/22 12/16/22 12/17/22 14:59 22:59 06:59 Intake Total 150 / 150 Output Total 200 / 200 Balance -50 / -50 Weight last 48 hrs Weight 144.242 kg Physical Exam Narrative: General: Lying in bed, currently with BiPAP on. We remove the BiPAP to reassess patient and noted that he was not able to answer any questions, was extremely slow to answer any questions. HEENT: PERRLA, pupils bilaterally equal and reactive, pallors not present Chest: He is currently precipitated a bout of cough, diffuse wheezing while coughing CVS: S1-S2 regular, no murmurs, no tachycardia, no gallops, no rubs Abdomen: Soft, nondistended Neuro: No focal deficits, he is moving all his extremities while laying in bed. Even moves extremities to command, however is extremely slow to follow commands currently. Data 12/16/22 17:45 12/16/22 17:45 Micro: Microbiology 12/16/22 18:48 Blood Culture - Preliminary Blood SPECIMEN COLLECTED 12/16/22 18:41 Blood Culture - Preliminary Blood SPECIMEN COLLECTED ABG Interpretation 1: 12/16/22 17:42 ABG pH 7.23 L ABG pCO2 74.9 H* ABG pO2 127.0 H ABG HCO3 31.1 H ABG O2 Saturation 98.2 ABG Base Excess 0.5 My Interpretation: Launch?Image [address] [address] CT Scan Report Signed Patient: Kentrell Hubbard Unit #: [id number] : 1955 Age/Sex: 67 / M ADM Date: 12/16/22 Loc: ICU Room/Bed: [place] [address]: Rosaura Mueller MD Ordering Provider/Ordering MD: Dewey Sue MD Date of Service: 12/16/22 Procedure(s): CT chest [facility] [address] Accession Number(s): [id number] Report Number: [id number] PROCEDURE INFORMATION: Exam: CT Chest Without Contrast; Diagnostic Exam date and time: 12/16/2022 9:11 PM Age: 67 years old Clinical indication: Screening exam; Other screening; Prior surgery; Surgery date: 6+ months; Surgery type: Stents; Additional info: R/O pneumonia TECHNIQUE: Imaging protocol: Diagnostic computed tomography of the chest without contrast. Radiation optimization: All CT scans at this facility use at least one of these dose optimization techniques: automated exposure control; mA and/or kV adjustment per patient size (includes targeted exams where dose is matched to clinical indication); or iterative reconstruction. REPORTING DATA: Count of CT and Cardiac NM exams in prior 12 months: This patient has received 2 known CTs and 0 known cardiac nuclear medicine studies in the 12 months prior to the current study. COMPARISON: 1. ? CT chest con [id number] 01/24/2022 3:25 AM 2. ? CR (CHEST, ) 12/16/2022 5:54 PM RADIATION DOSE METRICS: Total DLP (mGy-cm): 908.21 FINDINGS: Lungs: Right lower lobe calcified granuloma. Scattered tree-in-bud type opacities throughout both lungs, greatest in the right upper lobe and left lower lobe. Mild atelectasis in the lung bases. Pleural spaces: Unremarkable. No pneumothorax. No pleural effusion. Heart: Heart size is normal. Coronary arteries: Mild coronary artery calcifications with a stent. Lymph nodes: Prominent mediastinal and hilar lymph nodes are most likely reactive. Calcified mediastinal and right hilar lymph nodes. Vasculature: Unremarkable. No aortic aneurysm.? Diaphragm: Large hiatal hernia. Kidneys and ureters: Bilateral perinephric stranding is most likely physiologic. Bones/joints: Degenerative changes and Schmorl's nodes in the thoracic spine. Mild curvature. No acute fracture. Old rib fractures. Soft tissues: Unremarkable. CT/CT chest wo con [id number] IMPRESSION: 1. Diffuse scattered tree-in-bud opacities in both lungs.? This most likely represents infectious bronchiolitis. ? XR/XR chest 1V portable [id number] IMPRESSION: Suspected ground-glass opacities in both lungs could represent multilobar pneumonia. ? A&P Assessment and plan (1) Acute on chronic respiratory failure with hypoxia and hypercapnia: 67-year-old male with a past medical history of COPD, chronic hypoxia, CAD presenting to the emergency room today with acute on chronic hypoxic hypercapnic respiratory failure related to a COPD exacerbation. Suspect that acute COPD exacerbation is precipitated by bronchiolitis as noted on CT and chest x-ray. Bronchiolitis may be viral versus bacterial in nature. Start empiric antibiotic treatment with ceftriaxone 1 g IV every 24 hours and azithromycin 500 mg every 8 hours. For COPD exacerbation, systemic steroids dexamethasone 6mg IVP every 12 hours; he has previously received 60 mg p.o. prednisone in the emergency room. We will administer Solu-Medrol 125 mg stat and then continue dexamethasone every 12 hour s. duoneb q6h, budesonide q12h scheduled nebulization Continued BiPAP ventilation. Awaiting next ABG to assess if hypercapnia is improving. Currently BiPAP settings changed to AVAPS. He has a past medical history of admission for COPD exacerbation in December 2021, failed noninvasive ventilation and needed eventually to be intubated. Low threshold for intubation. (2) Acute exacerbation of chronic obstructive airways disease: Likely triggered by acute bronchiolitis. Management as above (3) Acute bronchiolitis: Viral versus bacterial Empiric abx as above (4) NSTEMI (non-ST elevated myocardial infarction): Denies any chest pain. Baseline troponin at 110. Previous extensive history of coronary artery disease. Troponin downtrending at 2 hours. EKG without any acute ST-T wave changes. Pending 6-hour trend. Possibly NSTEMI versus demand ischemia Start Lovenox 1 mg/kg every 12 hours Once patient more alert and awake we will administer aspirin 325mg, and then thereafter continue aspirin 81 and Plavix as he takes at home. Echocardiogram to assess for any new regional wall motion abnormalities. (5) Congestive heart failure: He has received 60 mg of IV Lasix in the emergency room. Urine output 300 cc thereafter. Cosby catheter, input output charting, monitor renal function closely (6) Altered mental status: Initially upon presentation patient was alert awake and oriented, however during the course of admission has become more somnolent. He did have interruption in BiPAP ventilation for about 20 to 30 minutes while he was being transported. Suspect that he may be having worsening hypercapnia with interruption. He has been placed back on BiPAP, repeat ABG has been ordered. If evidence of worsening hypercapnia and persisting mental status changes patient will need to be intubated. This has been discussed with his son and confirms that patient will be full code. Currently he is protecting his airway, follows commands though is slow to res pond. He is moving all 4 extremities spontaneously, no asymmetry noted on his face, his pupils are bilaterally equal and reactive. Low suspicion for CVA. Plan DVT prophylaxis: Currently on full dose anticoagulation. PUD prophylaxis: Protonix 40 mg daily Full code Attestations Medical Necessity Statement*: Patient needs to be admitted to the ICU, greater than 2 midnight admission is anticipated for management of acute on chronic hypoxic hypercapnic respiratory failure with altered mental status, NSTEMI congestive heart failure needing IV diuretics, IV antibiotics, currently noninvasive ventilation with high risk to proceed to mechanical ventilation. Critical Care Time: The high probability of a clinically significant, sudden or life threatening deterioration of the patient's [respiratory, cardiac, neuro] system(s) required my full and direct attention, intervention and personal management. The critical care time is as shown. This time is in addition to time spent performing any reported procedures but includes the following: [x] Data and vital sign review and interpretation [x] Patient assessment, examination and intervention [x] Documentation [x] Medication orders and management Critical Care Time (min): 60 Coding Level of Care Code Critical Care >/= 30 minutes Diagnoses Acute on chronic respiratory failure with hypoxia and hypercapnia J96.21; J96.22 Acute exacerbation of chronic obstructive airways disease J44.1 Acute bronchiolitis J21.9 NSTEMI (non-ST elevated myocardial infarction) I21.4 Congestive heart failure I50.9 Altered mental status R41.82
[2022-12-17 00:25] LABS: Arterial Blood Gas Hematocrit 53.8 % (42-52); Base Excess ABG 0.4 mmol/L (-2.0-2.0); Blood Gas Allen Test Pos; Blood Gas Sample Type Arterial; Carboxyhemoglobin 1.3 %THgb (0.4-20.1); HCO3 ABG 32.9 mmol/L (22-26); HGB O2 Sat 97.2 % (95-100); Ionized Calcium Level - ABG 1.2 mmol/L (1.1-1.4); Methemoglobin 0.4 % (0.4-1.5); Oxygen Saturation ABG 98.9; Potassium Level - ABG 4.1 mmol/L (3.5-5.0); Total Hemoglobin 17.5 g/dL (14-18)
[2022-12-17 00:27] LABS: Alveolar-Arterial Oxygen Gradi 28.9 mmHg (5-10); Blood Gas Operator Identificat JB; Blood Gas Sample Site Radial, right; Oxygen Device BIPAP
[2022-12-17 00:28] LABS: ABG PCO2 90.7 mmHg (35-45); ABG PH Result 7.17 (7.35-7.45)
[2022-12-17] MEDS: methylPREDNISolone sod succ 125 MG in water for injection-sterile 2 ML 24 MG IVP (00:36)
[2022-12-17] MEDS: azithromycin 500 MG in sodium chloride 0.9% 250 ML 250 MG IV (00:39)
[2022-12-17] MEDS: enoxaparin 150 mg/mL Syringe 140 MG SUBCUT ×2 (00:39→12:54)
[2022-12-17] MEDS: cefTRIAXone 1,000 MG in sodium chloride 0.9% (plus) 50 ML 100 MG IV (00:42)
[2022-12-17] MEDS: ipratropium-albuterol 3 mL Neb INHALATION ×5 (00:45→19:53)
[2022-12-17 02:09] LABS: ABG PH Result 7.25 (7.35-7.45); Arterial Blood Gas Hematocrit 52.6 % (42-52); Base Excess ABG 0.5 mmol/L (-2.0-2.0); Blood Gas Allen Test Pos; Blood Gas Operator Identificat JB; Blood Gas Sample Site Radial, right; Blood Gas Sample Type Arterial; HCO3 ABG 30.4 mmol/L (22-26); Oxygen Device BIPAP; PO2 ABG 68.3 mmHg (80.0-100.0)
[2022-12-17 04:40] LABS: ABG PCO2 58.9 mmHg (35-45); ABG PH Result 7.32 (7.35-7.45); Arterial Blood Gas Hematocrit 56.2 % (42-52); Base Excess ABG 1.9 mmol/L (-2.0-2.0); Blood Gas Allen Test Pos; Blood Gas Operator Identificat JB; Blood Gas Sample Site Radial, right; Blood Gas Sample Type Arterial; HCO3 ABG 30.2 mmol/L (22-26); Oxygen Device BIPAP; PO2 ABG 70.3 mmHg (80.0-100.0)
[2022-12-17] MEDS: budesonide 0.5 mg/2 mL Neb INHALATION ×2 (07:47→19:53)
--- NOTE | 2022-12-17 08:20 | ECG_ITS ---
[facility] Test Date: 2022-12-17 Pat Name: Kentrell Hubbard Department: Room: ICU05 Gender: Male Mirror Department Supervisor: : 1955 Requested By: Wilfredo Gutiérrez Order Number: [id number] Marcio MD: Bal Wiseman M.D. Measurements Intervals [place] Rate: 71 P: -14 MD: 148 QRS: 32 QRSD: 113 T: 32 QT: 386 QTc: 421 Interpretive Statements SINUS RHYTHM MODERATE INTRAVENTRICULAR CONDUCTION DELAY [110+ ms QRS DURATION] MODERATE T-WAVE ABNORMALITY, CONSIDER ANTERIOR ISCHEMIA [-0.1+ mV T-WAVE IN V3/V4] Compared to ECG 12/17/2022 08:32:31 Intraventricular conduction delay now present T-wave abnormality still present Possible ischemia still present Electronically Signed On 12-17-2022 19:06:17 CDT by Bal Wiseman M.D. [id number]
[2022-12-17] MEDS: atorvastatin 40 mg Tablet 80 MG PO (08:21)
[2022-12-17] MEDS: carvedilol 12.5 mg Tablet PO ×2 (08:21→17:10)
[2022-12-17] MEDS: dexamethasone 4 mg/mL INJ 6 MG IVP (08:21)
[2022-12-17] MEDS: clopidogrel 75 mg Tablet PO (08:21)
[2022-12-17] MEDS: aspirin 81 mg EC Tablet PO (08:21)
[2022-12-17] MEDS: FUROsemide 10 mg/mL SDV 4mL 40 MG IVP (08:21)
[2022-12-17] MEDS: pantoprazole DR 40 mg Tablet PO (08:21)
[2022-12-17 09:27] LABS: Basophils # 0.1 10^3/uL (0.0-0.1); Basophils % 0.9 %; Hematocrit 52.2 % (37-53); Lymphocytes # 0.7 10^3/uL (0.8-4.8); Lymphocytes % 6.8 %; Mean Corpuscular HGB Conc 31.6 g/dL (30-55); Mean Corpuscular Hemoglobin 29.8 pg (27-33); Mean Corpuscular Volume 94.2 fl (82-101); Monocytes # 0.4 10^3/uL (0.2-0.9); Monocytes % 3.6 %; Neutrophils # 9.58 10^3/uL (1.8-7.7); Nucleated Red Blood Cells % 0.4 %; Platelet Count 289 10^3/cmm (157-399); Red Blood Count 5.54 10^6/uL (3.85-5.65); Red Cell Distribution Width 14.3 % (12.1-15.1); White Blood Count 10.89 10^3/uL (3.29-11.43)
[2022-12-17 09:39] LABS: Add Urine Culture? Yes; Add Urine Microscopic? YES; Bacteria Urine TRACE /hpf; Bilirubin Urine Neg (Negative); Blood Urine 3+ (Negative); Glucose Urine UA Norm (Normal); Ketones Urine 1+ (Negative); Leukocyte Esterase Urine Negative (Negative); Nitrate Urine Negative (Negative); Protein Urine Neg (Negative); Specific Gravity, Urine 1.015 (1.005-1.030); Squamous Epithelial Cell Urine 0-4 /hpf (0-5); Urine Appearance Clear (CLEAR); Urine Color Yellow (Yellow); Urobilinogen Urine Norm (Negative); WBC Urine 15-25 /hpf (0-5); pH Urine 6 (5-7)
[2022-12-17 09:54] LABS: Anion Gap 17.2 (5-19); Blood Urea Nitrogen 38 mg/dL (8-23); Calcium 8.9 mg/dL (8.5-10.5); Carbon Dioxide 29 mmol/L (22-29); Chloride 100 mmol/L (98-107); Glomerular Filtration Rate 74.8 mL/min (90-130); Glucose 166 mg/dL (65-115); Osmolality Calculated 307 mOsm/kg (285-295); Potassium 4.2 mmol/L (3.5-5.1); Sodium 142 mmol/L (136-145); Troponin(5th) Baseline 43 ng/L (0-15)
[2022-12-17 10:01] LABS: NT Pro B Type Natriuretic Pept 1758 pg/mL (0-125)
[2022-12-17 10:02] LABS: Slide Review Slide Review Perform
[2022-12-17 10:13] LABS: C Reactive Protein 211.8 mg/L (0.0-4.9)
--- NOTE | 2022-12-17 10:31 | ECG_ITS ---
[facility] Test Date: 2022-12-17 Pat Name: Kentrell Hubbard Department: Room: ICU05 Gender: Male Mat Cutter: : 1955 Requested By: Wilfredo Gutiérrez Order Number: [id number] Marcio MD: Bal Wiseman M.D. Measurements Intervals [place] Rate: 67 P: 0 ND: 166 QRS: 31 QRSD: 101 T: 44 QT: 404 QTc: 428 Interpretive Statements SINUS RHYTHM MODERATE T-WAVE ABNORMALITY, CONSIDER ANTERIOR ISCHEMIA [-0.1+ mV T-WAVE IN V3/V4] Compared to ECG 12/17/2022 08:32:56 Intraventricular conduction delay no longer present T-wave abnormality still present Possible ischemia still present Electronically Signed On 12-17-2022 19:17:05 CDT by Bal Wiseman M.D. [id number]
--- NOTE | 2022-12-17 11:09 | PC.NURSE ---
off bipap for liquids and po meds this am.. then replaced back on bipap .. noted some short of breath with activity at this time .
[2022-12-17 11:29] LABS: Adenovirus Not Detected (NOT DETECT); Chlamydia Pneumoniae Not Detected (NOT DETECT); Coronavirus 229E,HKU1,NL63,OC4 Not Detected (NOT DETECT); Human Metapneumovirus Not Detected (NOT DETECT); Human Rhinovirus/Enterovirus Not Detected (NOT DETECT); Influenza A Not Detected (NOT DETECT); Influenza A H1 Not Detected (NOT DETECT); Influenza A H1-2009 Not Detected (NOT DETECT); Influenza A H3 Not Detected (NOT DETECT); Influenza B Not Detected (NOT DETECT); Mycoplasma Pneumoniae Not Detected (NOT DETECT); Parainfluenza Virus Type 1 Not Detected (NOT DETECT); Parainfluenza Virus Type 2 Not Detected (NOT DETECT); Parainfluenza Virus Type 3 Not Detected (NOT DETECT); Parainfluenza Virus Type 4 Not Detected (NOT DETECT); Respiratory Syncytial Virus A Not Detected (NOT DETECT); Respiratory Syncytial Virus B Not Detected (NOT DETECT); SARS-COV-2 Not Detected (NOT DETECT)
[2022-12-17 11:53] LABS: Troponin 5 2HR 38.04 ng/L (0-15)
[2022-12-17 11:56] LABS: Troponin 5 2HR Delta -4.96 ABS# (0-10)
--- NOTE | 2022-12-17 13:21 | P.PN_ITS ---
Subjective Subjective: Patient was seen this morning, he is on BiPAP he is alert awake, follows all commands, he tells me that his shortness of breath has improved, continues to have audible wheezing, no fevers, no chills, no cough, no chest pain, he was admitted at [facility] in December of last year, was intubated, we will try to get the records Vitals/I&O/Wt Last Vital Signs Temp 98.1 F 12/16/22 21:28 Pulse 62 12/17/22 12:00 Resp 27 H 12/17/22 12:00 BP 137/76 12/17/22 12:00 Pulse Ox 90 12/17/22 12:00 O2 Del Method BiPAP 12/17/22 07:50 FiO2 35 12/17/22 12:00 12/16/22 12/17/22 12/17/22 22:59 06:59 14:59 Intake Total 150 / 150 302 / 452 350 / 350 Output Total 200 / 200 400 / 600 Balance -50 / -50 -98 / -148 350 / 350 Weight last 48 hrs Weight 144.242 kg Physical Exam Const: COMMON NORMALS: no acute distress and patient oriented x3 Resp: COMMON NORMALS: normal respiratory effort, No retractions and No use of accessory muscles AUSCULTATION: wheezes Cardio: COMMON NORMALS: regular rate, regular rhythm, S1 normal heart sound present and S2 normal heart sound present RATE: regular rate RHYTHM: regular rhythm HEART SOUNDS: S1 normal heart sound present and S2 normal heart sound present GI: COMMON NORMALS: Normal to inspection, nondistended, normoactive bowel sounds present and non-tender Extremity: COMMON NORMALS: no pedal edema Neuro: COMMON NORMALS: patient oriented x3 Psych: COMMON NORMALS: mental status grossly normal Urinary Catheter Management: Cosby: Cath Placed During This Visit: yes Reason for Continuing Indwelling Catheter: Accurate Measurement of Urinary Output in Critically Ill Patients Urinary Catheter Date of Insertion: 12/17/22 Urinary Catheter Time of Insertion: 02:00 Data 12/17/22 09:20 12/17/22 09:20 Micro: Microbiology 12/16/22 18:48 Blood Culture - Preliminary Blood SPECIMEN COLLECTED 12/16/22 18:41 Blood Culture - Preliminary Blood SPECIMEN COLLECTED A&P Assessment and plan (1) Acute on chronic respiratory failure with hypoxia and hypercapnia: 67-year-old male with a past medical history of COPD, chronic hypoxia, CAD presenting to the emergency room today with acute on chronic hypoxic hypercapnic respiratory failure diastolic CHF exacerbation, multifactorial from pneumonia, COPD, Plan -Continue BiPAP as needed during the day, schedule during the night -Continue broad-spectrum antibiotic therapy, Rocephin, azithromycin -Follow sputum cultures, blood cultures, respiratory viral panel -Continue Decadron 6 mg IV push every 24 hours -Continue Lasix 40 mg IV push every 24 hours -Follow cardiac echocardiogram -NSTEMI, therapeutic Lovenox -Full code -Lovenox for DVT prophylaxis (2) Acute exacerbation of chronic obstructive airways disease: Likely triggered by acute bronchiolitis, pneumonia. Management as above (3) Acute bronchiolitis: Empiric abx as above (4) NSTEMI (non-ST elevated myocardial infarction): Denies any chest pain. Baseline troponin at 110. Previous extensive history of coronary artery disease. Troponin downtrending at 2 hours. EKG without any acute ST-T wave changes. Possibly NSTEMI versus demand ischemia Continue Lovenox 1 mg/kg every 12 hours Continue aspirin 81 mg, Plavix 75 mg Echocardiogram to assess for any new regional wall motion abnormalities. (5) Congestive heart failure: He has received 60 mg of IV Lasix in the emergency room. Urine output 300 cc thereafter. Cosby catheter, input output charting, monitor renal function closely (6) Altered mental status: Likely secondary hypercarbia, resolved (7) Pneumonia: (8) Acute exacerbation of CHF (congestive heart failure): (9) COPD (chronic obstructive pulmonary disease): Qualifiers: COPD type: chronic bronchitis Chronic bronchitis type: simple Qualified Code(s): J41.0 - Simple chronic bronchitis (10) CHF (congestive heart failure), NYHA class III: Qualifiers: Congestive heart failure type: unspecified Qualified Code(s): I50.9 - Heart failure, unspecified (11) Dyslipidemia (high LDL; low HDL): (12) HTN (hypertension): Qualifiers: Hypertension type: essential hypertension Qualified Code(s): I10 - Essential (primary) hypertension (13) CAD S/P percutaneous coronary angioplasty: (14) Acute kidney injury superimposed on CKD: Plan DVT prophylaxis: Currently on full dose anticoagulation. PUD prophylaxis: Protonix 40 mg daily Full code Attestations Medical Necessity Statement*: Patient requires hospitalization for acute hypoxic hypercarbic respiratory failure secondary COPD, diastolic CHF, pneumonia, NSTEMI Diagnoses Acute on chronic respiratory failure with hypoxia and hypercapnia J96.21; J96.22 Acute exacerbation of chronic obstructive airways disease J44.1 Acute bronchiolitis J21.9 NSTEMI (non-ST elevated myocardial infarction) I21.4 Congestive heart failure I50.9 Altered mental status R41.82 Pneumonia J18.9 Acute exacerbation of CHF (congestive heart failure) I50.9 COPD (chronic obstructive pulmonary disease) J41.0 COPD type: chronic bronchitis Chronic bronchitis type: simple CHF (congestive heart failure), NYHA class III I50.9 Congestive heart failure type: unspecified Dyslipidemia (high LDL; low HDL) E78.5 HTN (hypertension) I10 Hypertension type: essential hypertension CAD S/P percutaneous coronary angioplasty I25.10; Z98.61 Acute kidney injury superimposed on CKD N17.9; N18.9
--- NOTE | 2022-12-17 13:53 | ECG_ITS ---
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 Measurements Intervals [place] Rate: 69 P: 10 WI: 120 QRS: 41 QRSD: 118 T: 34 QT: 430 QTc: 462 Interpretive Statements SINUS RHYTHM WITH SINUS ARRHYTHMIA MODERATE INTRAVENTRICULAR CONDUCTION DELAY [105+ ms QRS DURATION, 80+ ms Q/S IN V1/V2, NO Q AND 60+ ms R IN I/aVL/V5/V6] MODERATE T-WAVE ABNORMALITY, CONSIDER ANTEROLATERAL ISCHEMIA [-0.1+ mV T-WAVE IN V3-V6] Compared to ECG 12/17/2022 10:31:32 Intraventricular conduction delay now present T-wave abnormality still present Possible ischemia still present Electronically Signed On 12-17-2022 19:17:33 CDT by Bal Wiseman M.D. [id number]
[2022-12-17 15:22] LABS: Troponin 5 6HR 33.94 ng/L (0-15)
[2022-12-18] VITALS (57 sets, daily range): BP systolic 93–141; BP diastolic 57–94; PULSE 45–81; RESP 14–34; TEMP 37; O2SAT 84–96
[2022-12-18] MEDS: azithromycin 500 MG in sodium chloride 0.9% 250 ML 250 MG IV (00:17)
[2022-12-18] MEDS: enoxaparin 150 mg/mL Syringe 140 MG SUBCUT ×2 (00:17→12:16)
[2022-12-18] MEDS: cefTRIAXone 1,000 MG in sodium chloride 0.9% (plus) 50 ML 100 MG IV (00:18)
[2022-12-18] MEDS: ipratropium-albuterol 3 mL Neb INHALATION ×4 (03:01→19:39)
[2022-12-18 04:44] LABS: Basophils # 0.1 10^3/uL (0.0-0.1); Basophils % 0.4 %; Eosinophils % 0.1 %; Hematocrit 49.1 % (37-53); Lymphocytes # 1.4 10^3/uL (0.8-4.8); Mean Corpuscular HGB Conc 31.6 g/dL (30-55); Mean Corpuscular Hemoglobin 29.9 pg (27-33); Mean Corpuscular Volume 94.6 fl (82-101); Monocytes # 1.2 10^3/uL (0.2-0.9); Monocytes % 7.6 %; Neutrophils # 13.16 10^3/uL (1.8-7.7); Neutrophils % 82.5 %; Nucleated Red Blood Cells % 0.1 %; Platelet Count 260 10^3/cmm (157-399); Red Blood Count 5.19 10^6/uL (3.85-5.65); Red Cell Distribution Width 14.4 % (12.1-15.1); White Blood Count 15.97 10^3/uL (3.29-11.43)
[2022-12-18 05:09] LABS: Alanine Aminotransferase 14 U/L (0-41); Albumin Level 2.9 g/dL (3.5-5.2); Alkaline Phosphatase 80 U/L (40-130); Anion Gap 9.9 (5-19); Aspartate Amino Transferase 15 U/L (0-40); Blood Urea Nitrogen 38 mg/dL (8-23); Calcium 8.8 mg/dL (8.5-10.5); Carbon Dioxide 31 mmol/L (22-29); Chloride 99 mmol/L (98-107); Globulin 3.2 g/dL (1.3-4.6); Glomerular Filtration Rate 84.4 mL/min (90-130); Glucose 157 mg/dL (65-115); Magnesium 2.6 mg/dL (1.7-2.3); Osmolality Calculated 294 mOsm/kg (285-295); Potassium 3.9 mmol/L (3.5-5.1); Sodium 136 mmol/L (136-145); Total Bilirubin 0.2 mg/dL (0.15-1.2); Total Protein 6.1 g/dL (6.6-8.7)
[2022-12-18] MEDS: budesonide 0.5 mg/2 mL Neb INHALATION ×2 (07:55→19:39)
[2022-12-18] MEDS: aspirin 81 mg EC Tablet PO (08:35)
[2022-12-18] MEDS: clopidogrel 75 mg Tablet PO (08:35)
[2022-12-18] MEDS: carvedilol 12.5 mg Tablet PO ×2 (08:35→17:29)
[2022-12-18] MEDS: pantoprazole DR 40 mg Tablet PO (08:35)
[2022-12-18] MEDS: FUROsemide 10 mg/mL SDV 4mL 40 MG IVP (08:36)
[2022-12-18] MEDS: atorvastatin 40 mg Tablet 80 MG PO (08:37)
[2022-12-18] MEDS: dexamethasone 4 mg/mL INJ 6 MG IVP (08:37)
[2022-12-18] MEDS: metOLazone 5 MG Tablet PO (08:38)
[2022-12-18 15:36] LABS: Methicillin-Resist S.aureu PCR NOT DETECTED (NOT DETECTED)
--- NOTE | 2022-12-18 16:45 | PM.PN ---
Subjective Subjective: Patient was seen this morning, he was sitting up in a chair, currently on 8 L, continues to have a mild cough, no lower extreme edema continues to have shortness of breath, continues to have desats, with minimal exertion, tolerated the BiPAP overnight, but tells me that it made him claustrophobic, no fevers, chills, he denies a history of DVT or PEs, denies any chest pain Vitals/I&O/Wt Last Vital Signs Temp 98.6 F 12/18/22 02:00 Pulse 49 L 12/18/22 16:00 Resp 19 H 12/18/22 16:00 BP 103/71 12/18/22 16:00 Pulse Ox 88 L 12/18/22 16:00 O2 Del Method High Flow Nasal Cannula 12/18/22 13:40 O2 Flow Rate 8 12/18/22 13:40 FiO2 40 12/18/22 16:00 12/18/22 12/18/22 12/18/22 06:59 14:59 22:59 Intake Total 400 / 1450 300 / 300 Output Total 1100 / 2100 Balance -700 / -650 300 / 300 Weight last 48 hrs Weight 144.242 kg Physical Exam Const: COMMON NORMALS: no acute distress and patient oriented x3 Resp: COMMON NORMALS: normal respiratory effort, No retractions and No use of accessory muscles AUSCULTATION: crackles and wheezes Cardio: COMMON NORMALS: regular rate, regular rhythm, S1 normal heart sound present and S2 normal heart sound present RATE: regular rate RHYTHM: regular rhythm HEART SOUNDS: S1 normal heart sound present and S2 normal heart sound present GI: COMMON NORMALS: Normal to inspection, nondistended, normoactive bowel sounds present and non-tender Extremity: COMMON NORMALS: no pedal edema Neuro: COMMON NORMALS: patient oriented x3 Psych: COMMON NORMALS: mental status grossly normal Urinary Catheter Management: Cosby: Cath Placed During This Visit: yes Reason for Continuing Indwelling Catheter: Accurate Measurement of Urinary Output in Critically Ill Patients Urinary Catheter Date of Insertion: 12/17/22 Urinary Catheter Time of Insertion: 02:00 Data 12/18/22 04:23 12/18/22 04:23 Micro: Microbiology 12/17/22 08:22 Urine Culture - Preliminary Urine,Clean Catch 12/16/22 18:48 Blood Culture - Preliminary Blood NEGATIVE TO DATE 12/16/22 18:41 Blood Culture - Preliminary Blood NEGATIVE TO DATE A&P Assessment and plan (1) Acute on chronic respiratory failure with hypoxia and hypercapnia: 67-year-old male with a past medical history of COPD, chronic hypoxia, CAD presenting to the emergency room today with acute on chronic hypoxic hypercapnic respiratory failure diastolic CHF exacerbation, multifactorial from pneumonia, COPD, Plan -Continue BiPAP as needed during the day, schedule during the night -Continue broad-spectrum antibiotic therapy, Rocephin, azithromycin -Follow sputum cultures, blood cultures, respiratory viral panel -Continue Decadron 6 mg IV push every 24 hours -Continue Lasix 40 mg IV push every 24 hours -cardiac echocardiogram CONCLUSIONS ?Normal left ventricular size and systolic function, EF 68 %. No ?regional wall motion abnormalities. Grade I/IV diastolic ?dysfunction (abnormal relaxation filling pattern), normal to ?mildly elevated fillingpressures. ?No gross abnormalities noted in the aortic and mitral valves. ?The right ventricle appears to be mildly dilated with possibly ?normal ejection. ?There is no pericardial effusion. ?Technically difficult study because of the poor ultrasonic ?window. ?Had to use Optison as echo contrast to delineate the LV ?endocardium. -NSTEMI, therapeutic Lovenox -Full code -Lovenox for DVT prophylaxis (2) Acute exacerbation of chronic obstructive airways disease: Likely triggered by acute bronchiolitis, pneumonia. Management as above (3) Acute bronchiolitis: Empiric abx as above (4) NSTEMI (non-ST elevated myocardial infarction): Denies any chest pain. Baseline troponin at 110. Previous extensive history of coronary artery disease. Troponin downtrending at 2 hours. EKG without any acute ST-T wave changes. Possibly NSTEMI versus demand ischemia Continue Lovenox 1 mg/kg every 12 hours Continue aspirin 81 mg, Plavix 75 mg Echocardiogram to assess for any new regional wall motion abnormalities. (5) Congestive heart failure: He has received 60 mg of IV Lasix in the emergency room. Urine output 300 cc thereafter. Cosby catheter, input output charting, monitor renal function closely (6) Altered mental status: Likely secondary hypercarbia, resolved (7) Pneumonia: (8) Acute exacerbation of CHF (congestive heart failure): (9) COPD (chronic obstructive pulmonary disease): Qualifiers: COPD type: chronic bronchitis Chronic bronchitis type: simple Qualified Code(s): J41.0 - Simple chronic bronchitis (10) CHF (congestive heart failure), NYHA class III: Qualifiers: Congestive heart failure type: unspecified Qualified Code(s): I50.9 - Heart failure, unspecified (11) Dyslipidemia (high LDL; low HDL): (12) HTN (hypertension): Qualifiers: Hypertension type: essential hypertension Qualified Code(s): I10 - Essential (primary) hypertension (13) CAD S/P percutaneous coronary angioplasty: (14) Acute kidney injury superimposed on CKD: Plan DVT prophylaxis: Currently on full dose anticoagulation. PUD prophylaxis: Protonix 40 mg daily Full code Due to persistent hypoxia, 18 L, persistent shortness of breath, hypercoagulable risk factors, order CT angiogram to evaluate for possible underlying pulmonary embolism, also give 1 dose of Lasix with, with metolazone Attestations Medical Necessity Statement*: Patient requires hospitalization for acute respiratory failure, COPD, CHF, pneumonia Diagnoses Acute on chronic respiratory failure with hypoxia and hypercapnia J96.21; J96.22 Acute exacerbation of chronic obstructive airways disease J44.1 Acute bronchiolitis J21.9 NSTEMI (non-ST elevated myocardial infarction) I21.4 Congestive heart failure I50.9 Altered mental status R41.82 Pneumonia J18.9 Acute exacerbation of CHF (congestive heart failure) I50.9 COPD (chronic obstructive pulmonary disease) J41.0 COPD type: chronic bronchitis Chronic bronchitis type: simple CHF (congestive heart failure), NYHA class III I50.9 Congestive heart failure type: unspecified Dyslipidemia (high LDL; low HDL) E78.5 HTN (hypertension) I10 Hypertension type: essential hypertension CAD S/P percutaneous coronary angioplasty I25.10; Z98.61 Acute kidney injury superimposed on CKD N17.9; N18.9
--- NOTE | 2022-12-18 16:47 | CTR_ITS ---
PROCEDURE INFORMATION: Exam: CTA Chest With Contrast Exam date and time: 12/18/2022 6:00 PM Age: 67 years old Clinical indication: Shortness of breath; Prior surgery; Surgery date: 6+ months; Surgery type: Cardiac stents; Additional info: SOB TECHNIQUE: Imaging protocol: Computed tomographic angiography of the chest with contrast. Exam focused on the arteries. 3D rendering (Not supervised by radiologist): MIP and/or 3D reconstructed images were created by the technologist. Radiation optimization: All CT scans at this facility use at least one of these dose optimization techniques: automated exposure control; mA and/or kV adjustment per patient size (includes targeted exams where dose is matched to clinical indication); or iterative reconstruction. Contrast material: OMNI 350; Contrast volume: 81 ml; Contrast route: INTRAVENOUS (IV); REPORTING DATA: Count of CT and Cardiac NM exams in prior 12 months: This patient has received 3 known CTs and 0 known cardiac nuclear medicine studies in the 12 months prior to the current study. COMPARISON: CT chest [facility] [id number] 12/16/2022 9:11 PM RADIATION DOSE METRICS: Total DLP (mGy-cm): 566.5 FINDINGS: Pulmonary arteries: Normal. No pulmonary emboli. Aorta: Unremarkable. No aortic aneurysm. No aortic dissection. Lungs: Emphysematous changes. Bilateral largely dependent airspace infiltrates. Pleural spaces: Unremarkable. No pneumothorax. No pleural effusion. Heart: Cardiomegaly. Coronary arteries: Coronary artery atherosclerotic calcifications. Lymph nodes: Unremarkable. No enlarged lymph nodes. Diaphragm: Moderate hiatal hernia. Kidneys and ureters: Mild perinephric edema bilaterally left greater than right likely reflecting renal insufficiency, please correlate for pyelonephritis. Bones/joints: Unremarkable. No acute fracture. Soft tissues: Unremarkable. CT/CT angio chest PE protcl [id number] IMPRESSION: 1. Negative for pulmonary embolus. 2. Coronary artery atherosclerotic calcifications. 3. Cardiomegaly. 4. Moderate hiatal hernia. 5. Emphysematous changes. 6. Bilateral largely dependent airspace infiltrates. 7. Mild perinephric edema bilaterally left greater than right likely reflecting renal insufficiency, please correlate for pyelonephritis. COMMENTS: In the absence of a history or active diagnosis of lung cancer, it is recommended that this patient with emphysema be evaluated for enrollment in a low dose CT lung cancer screening program.
[2022-12-18] MEDS: iohexol 350 mg/mL 500 mL Btl (per mL) IV (18:03)
[2022-12-19] VITALS (48 sets, daily range): BP systolic 90–149; BP diastolic 49–91; PULSE 46–84; RESP 2–29; TEMP 36.4; O2SAT 79–96
[2022-12-19] MEDS: enoxaparin 150 mg/mL Syringe 140 MG SUBCUT (00:12)
[2022-12-19] MEDS: cefTRIAXone 1,000 MG in sodium chloride 0.9% (plus) 50 ML 100 MG IV (00:12)
[2022-12-19] MEDS: azithromycin 500 MG in sodium chloride 0.9% 250 ML 250 MG IV (00:12)
[2022-12-19] MEDS: ipratropium-albuterol 3 mL Neb INHALATION ×4 (02:57→19:43)
[2022-12-19 06:01] LABS: Basophils % 0.3 %; Hematocrit 51.1 % (37-53); Lymphocytes # 1.9 10^3/uL (0.8-4.8); Lymphocytes % 13.9 %; Mean Corpuscular HGB Conc 31.7 g/dL (30-55); Mean Corpuscular Volume 94.6 fl (82-101); Mean Platelet Volume 9.5 fL (7.4-10.4); Monocytes % 7.7 %; Neutrophils # 10.41 10^3/uL (1.8-7.7); Neutrophils % 77.4 %; Nucleated Red Blood Cells % 0 %; Platelet Count 270 10^3/cmm (157-399); Red Cell Distribution Width 14.2 % (12.1-15.1); White Blood Count 13.46 10^3/uL (3.29-11.43)
[2022-12-19 06:02] LABS: ABG PCO2 69.2 mmHg (35-45); ABG PH Result 7.36 (7.35-7.45); Arterial Blood Gas Hematocrit 50.5 % (42-52); Base Excess ABG 10.4 mmol/L (-2.0-2.0); Blood Gas Allen Test Pos; Blood Gas Sample Site Radial, right; Blood Gas Sample Type Arterial; HCO3 ABG 39.5 mmol/L (22-26); Oxygen Device BIPAP; PO2 ABG 91.9 mmHg (80.0-100.0)
[2022-12-19 06:24] LABS: Alanine Aminotransferase 19 U/L (0-41); Albumin Level 3.4 g/dL (3.5-5.2); Alkaline Phosphatase 86 U/L (40-130); Anion Gap 7.3 (5-19); Aspartate Amino Transferase 21 U/L (0-40); Blood Urea Nitrogen 32 mg/dL (8-23); C Reactive Protein 58.3 mg/L (0.0-4.9); Calcium 9.4 mg/dL (8.5-10.5); Chloride 99 mmol/L (98-107); Glomerular Filtration Rate 84.4 mL/min (90-130); Glucose 125 mg/dL (65-115); Magnesium 2.5 mg/dL (1.7-2.3); Osmolality Calculated 306 mOsm/kg (285-295); Phosphorus 3.5 mg/dL (2.5-4.5); Potassium 4.3 mmol/L (3.5-5.1); Sodium 144 mmol/L (136-145); Total Bilirubin 0.2 mg/dL (0.15-1.2); Total Protein 6.4 g/dL (6.6-8.7)
[2022-12-19 06:27] LABS: Carbon Dioxide 42 mmol/L (22-29)
[2022-12-19 06:53] LABS: NT Pro B Type Natriuretic Pept 102 pg/mL (0-125)
[2022-12-19] MEDS: budesonide 0.5 mg/2 mL Neb INHALATION ×2 (07:44→19:43)
[2022-12-19] MEDS: dexamethasone 4 mg/mL INJ 6 MG IVP (08:04)
[2022-12-19] MEDS: pantoprazole DR 40 mg Tablet PO (08:04)
[2022-12-19] MEDS: atorvastatin 40 mg Tablet 80 MG PO (08:04)
[2022-12-19] MEDS: aspirin 81 mg EC Tablet PO (08:04)
[2022-12-19] MEDS: clopidogrel 75 mg Tablet PO (08:04)
[2022-12-19] MEDS: carvedilol 12.5 mg Tablet PO ×2 (08:04→17:33)
[2022-12-19] MEDS: docusate sodium 100 mg Capsule PO ×2 (09:34→17:33)
[2022-12-19] MEDS: FUROsemide 10 mg/mL SDV 4mL 40 MG IVP (09:35)
[2022-12-19] MEDS: polyethylene glycol 3350 Pkt 17 gm PO (09:35)
--- NOTE | 2022-12-19 13:23 | P.PN_ITS ---
Subjective Subjective: - I reviewed patient's records from [facility], he was on a ventilator, diagnosed with diastolic CHF exacerbation, diuresed over 20 L, there was no other significant findings, there was concerns for vascular injury after central line placement, but it was conservatively managed, no surgery was required as per I can see in the documentation, and I went over this with patient -He tells me that he could not use the BiPAP overnight, the mask bothered him too much, -I discussed his ABG findings, he still hypercarbic and when I initially walked into the room and he was sleeping I had to wake him up, his O2 sats were in the low 80s -I am highly suspicious that he does have nocturnal hypoxia, given his ABG findings of persistently hypercarbia I think he would clinically by and if it from a BiPAP, it would overall decrease his risk of hospitalizations and morbidity and mortality, he is agreeable, we will try a overnight pulse ox -His CT angiogram of the chest did not show any acute pulmonary emboli, will continue antibiotics, he will get diuresis today, continue antibiotics he is still on 7 L he does not use oxygen at home -Overall he does feel better, no fevers, no chills, Vitals/I&O/Wt Last Vital Signs Temp 98.6 F 12/18/22 02:00 Pulse 58 L 12/19/22 12:30 Resp 25 H 12/19/22 12:30 BP 113/69 12/19/22 12:30 Pulse Ox 95 12/19/22 12:30 O2 Del Method High Flow Nasal Cannula 12/19/22 07:44 O2 Flow Rate 7 12/19/22 07:44 FiO2 50 12/19/22 12:00 12/18/22 12/19/22 12/19/22 22:59 06:59 14:59 Intake Total 350 / 650 300 / 950 550 / 550 Output Total 2300 / 2300 2500 / 2500 Balance -1950 / -1650 300 / -1350 -1949 / -1950 Physical Exam Const: COMMON NORMALS: no acute distress and patient oriented x3 Resp: COMMON NORMALS: normal respiratory effort, No retractions and No use of accessory muscles AUSCULTATION: crackles and wheezes Cardio: COMMON NORMALS: regular rate, regular rhythm, S1 normal heart sound present and S2 normal heart sound present RATE: regular rate RHYTHM: regular rhythm HEART SOUNDS: S1 normal heart sound present and S2 normal heart sound present GI: COMMON NORMALS: Normal to inspection, nondistended, normoactive bowel sounds present and non-tender Extremity: COMMON NORMALS: no pedal edema Neuro: COMMON NORMALS: patient oriented x3 Psych: COMMON NORMALS: mental status grossly normal Urinary Catheter Management: Cosby: Cath Placed During This Visit: yes Reason for Continuing Indwelling Catheter: Accurate Measurement of Urinary Output in Critically Ill Patients Urinary Catheter Date of Insertion: 12/17/22 Urinary Catheter Time of Insertion: 02:00 Data 12/19/22 05:47 12/19/22 05:47 Micro: Microbiology 12/17/22 08:22 Urine Culture - Final Urine,Clean Catch A&P Assessment and plan (1) Acute on chronic respiratory failure with hypoxia and hypercapnia: 67-year-old male with a past medical history of COPD, chronic hypoxia, CAD presenting to the emergency room today with acute on chronic hypoxic hypercapnic respiratory failure diastolic CHF exacerbation, multifactorial from pneumonia, COPD, Plan -Continue BiPAP as needed during the day, schedule during the night -Continue broad-spectrum antibiotic therapy, Rocephin, azithromycin -Follow sputum cultures, blood cultures, respiratory viral panel -Continue Decadron 6 mg IV push every 24 hours -1 dose Lasix today -cardiac echocardiogram CONCLUSIONS ?Normal left ventricular size and systolic function, EF 68 %. No ?regional wall motion abnormalities. Grade I/IV diastolic ?dysfunction (abnormal relaxation filling pattern), normal to ?mildly elevated fillingpressures. ?No gross abnormalities noted in the aortic and mitral valves. ?The right ventricle appears to be mildly dilated with possibly ?normal ejection. ?There is no pericardial effusion. ?Technically difficult study because of the poor ultrasonic ?window. ?Had to use Optison as echo contrast to delineate the LV ?endocardium. -NSTEMI, completed 48 hours of therapeutic Lovenox, switch to DVT prophylaxis -Full code -Lovenox for DVT prophylaxis (2) Acute exacerbation of chronic obstructive airways disease: Likely triggered by acute bronchiolitis, pneumonia. Management as above (3) Acute bronchiolitis: Empiric abx as above (4) NSTEMI (non-ST elevated myocardial infarction): Possibly NSTEMI versus demand ischemia Completed 48 hours of therapeutic Lovenox Continue aspirin 81 mg, Plavix 75 mg (5) Congestive heart failure: He has received 60 mg of IV Lasix in the emergency room. Urine output 300 cc thereafter. Cosby catheter, input output charting, monitor renal function closely (6) Altered mental status: Likely secondary hypercarbia, resolved (7) Pneumonia: (8) Acute exacerbation of CHF (congestive heart failure): (9) COPD (chronic obstructive pulmonary disease): Qualifiers: COPD type: chronic bronchitis Chronic bronchitis type: simple Qualified Code(s): J41.0 - Simple chronic bronchitis (10) CHF (congestive heart failure), NYHA class III: Qualifiers: Congestive heart failure type: unspecified Qualified Code(s): I50.9 - Heart failure, unspecified (11) Dyslipidemia (high LDL; low HDL): (12) HTN (hypertension): Qualifiers: Hypertension type: essential hypertension Qualified Code(s): I10 - Essential (primary) hypertension (13) CAD S/P percutaneous coronary angioplasty: (14) Acute kidney injury superimposed on CKD: Plan DVT prophylaxis: Currently on full dose anticoagulation. PUD prophylaxis: Protonix 40 mg daily Full code - I reviewed patient's records from [facility], he was on a ventilator, diagnosed with diastolic CHF exacerbation, diuresed over 20 L, there was no other significant findings, there was concerns for vascular injury after central line placement, but it was conservatively managed, no surgery was required as per I can see in the documentation, and I went over this with patient -He tells me that he could not use the BiPAP overnight, the mask bothered him too much, -I discussed his ABG findings, he still hypercarbic and when I initially walked into the room and he was sleeping I had to wake him up, his O2 sats were in the low 80s -I am highly suspicious that he does have nocturnal hypoxia, given his ABG findings of persistently hypercarbia I think he would clinically by and if it from a BiPAP, it would overall decrease his risk of hospitalizations and morbi dity and mortality, he is agreeable, we will try a overnight pulse ox -His CT angiogram of the chest did not show any acute pulmonary emboli, will continue antibiotics, he will get diuresis today, continue antibiotics he is still on 7 L he does not use oxygen at home -Overall he does feel better, no fevers, no chills, plan to continue antibiotics, continue monitoring, will consider moving to medical floors Attestations Medical Necessity Statement*: Patient requires hospitalization for acute hypoxic hypercarbic respiratory failure secondary to COPD, CHF, pneumonia Diagnoses Acute on chronic respiratory failure with hypoxia and hypercapnia J96.21; J96.22 Acute exacerbation of chronic obstructive airways disease J44.1 Acute bronchiolitis J21.9 NSTEMI (non-ST elevated myocardial infarction) I21.4 Congestive heart failure I50.9 Altered mental status R41.82 Pneumonia J18.9 Acute exacerbation of CHF (congestive heart failure) I50.9 COPD (chronic obstructive pulmonary disease) J41.0 COPD type: chronic bronchitis Chronic bronchitis type: simple CHF (congestive heart failure), NYHA class III I50.9 Congestive heart failure type: unspecified Dyslipidemia (high LDL; low HDL) E78.5 HTN (hypertension) I10 Hypertension type: essential hypertension CAD S/P percutaneous coronary angioplasty I25.10; Z98.61 Acute kidney injury superimposed on CKD N17.9; N18.9
[2022-12-20] VITALS (38 sets, daily range): BP systolic 101–181; BP diastolic 55–110; PULSE 52–92; RESP 16–33; TEMP 36.3–36.8; O2SAT 88–96
[2022-12-20] MEDS: cefTRIAXone 1,000 MG in sodium chloride 0.9% (plus) 50 ML 100 MG IV (00:29)
[2022-12-20] MEDS: ipratropium-albuterol 3 mL Neb INHALATION ×4 (01:02→20:16)
--- NOTE | 2022-12-20 04:55 | PC.NURSE ---
Patient has remained on 8L high flow nasal cannula throughout shift for pulse oximetry study. Frequent rounds made. Patient has appeared to rest comfortably throughout the shift.
[2022-12-20 05:48] LABS: Basophils % 0.3 %; Eosinophils % 0.2 %; Hematocrit 56.9 % (37-53); Lymphocytes # 2.2 10^3/uL (0.8-4.8); Lymphocytes % 17.6 %; Mean Corpuscular HGB Conc 31.8 g/dL (30-55); Mean Corpuscular Hemoglobin 30.3 pg (27-33); Mean Corpuscular Volume 95.2 fl (82-101); Mean Platelet Volume 9.2 fL (7.4-10.4); Monocytes # 1.4 10^3/uL (0.2-0.9); Monocytes % 10.7 %; Neutrophils # 8.93 10^3/uL (1.8-7.7); Neutrophils % 70.7 %; Nucleated Red Blood Cells % 0 %; Platelet Count 280 10^3/cmm (157-399); Red Blood Count 5.98 10^6/uL (3.85-5.65); Red Cell Distribution Width 13.7 % (12.1-15.1); White Blood Count 12.63 10^3/uL (3.29-11.43)
[2022-12-20 06:06] LABS: Alanine Aminotransferase 27 U/L (0-41); Albumin Level 3.5 g/dL (3.5-5.2); Alkaline Phosphatase 88 U/L (40-130); Aspartate Amino Transferase 29 U/L (0-40); Blood Urea Nitrogen 23 mg/dL (8-23); C Reactive Protein 40.7 mg/L (0.0-4.9); Calcium 9.3 mg/dL (8.5-10.5); Chloride 93 mmol/L (98-107); Globulin 3.4 g/dL (1.3-4.6); Glomerular Filtration Rate 96.7 mL/min (90-130); Glucose 102 mg/dL (65-115); Magnesium 2.6 mg/dL (1.7-2.3); Osmolality Calculated 298 mOsm/kg (285-295); Phosphorus 4.6 mg/dL (2.5-4.5); Sodium 142 mmol/L (136-145); Total Bilirubin 0.2 mg/dL (0.15-1.2); Total Protein 6.9 g/dL (6.6-8.7)
[2022-12-20 06:08] LABS: Carbon Dioxide 46 mmol/L (22-29)
[2022-12-20 06:12] LABS: NT Pro B Type Natriuretic Pept 82 pg/mL (0-125)
[2022-12-20] MEDS: enoxaparin 40 mg/0.4 mL Syringe SUBCUT (07:50)
[2022-12-20] MEDS: docusate sodium 100 mg Capsule PO ×2 (07:51→18:09)
[2022-12-20] MEDS: dexamethasone 4 mg/mL INJ 6 MG IVP (07:51)
[2022-12-20] MEDS: polyethylene glycol 3350 Pkt 17 gm PO (07:51)
[2022-12-20] MEDS: carvedilol 12.5 mg Tablet PO ×2 (07:52→18:09)
[2022-12-20] MEDS: clopidogrel 75 mg Tablet PO (07:52)
[2022-12-20] MEDS: aspirin 81 mg EC Tablet PO (07:52)
[2022-12-20] MEDS: pantoprazole DR 40 mg Tablet PO (07:52)
[2022-12-20] MEDS: atorvastatin 40 mg Tablet 80 MG PO (07:52)
[2022-12-20] MEDS: budesonide 0.5 mg/2 mL Neb INHALATION ×2 (08:27→20:16)
--- NOTE | 2022-12-20 11:19 | PM.PN ---
Subjective Subjective: Today he is feeling slightly better. He is coughing, coughing up some grayish phlegm. Feels that he is possibly starting to improve. Vitals/I&O/Wt Last Vital Signs Temp 97.4 F L 12/20/22 01:00 Pulse 63 12/20/22 10:00 Resp 20 H 12/20/22 08:25 BP 127/72 12/20/22 10:00 Pulse Ox 89 L 12/20/22 10:00 O2 Del Method High Flow Nasal Cannula 12/20/22 08:25 O2 Flow Rate 8 12/20/22 08:25 FiO2 50 12/19/22 16:00 12/19/22 12/20/22 12/20/22 22:59 06:59 14:59 Intake Total 250 / 800 250 / 1050 Output Total 500 / 3000 1450 / 4450 Balance -250 / -2200 -1200 / -3400 Physical Exam Const: COMMON NORMALS: patient oriented x3 and alert GENERAL APPEARANCE: cooperative ORIENTATION/CONSCIOUSNESS: Yes awake HENMT: COMMON NORMALS: oropharynx normal Neck/C-Spine: COMMON NORMALS: no JVD Resp: AUSCULTATION: diminished lung sounds Cardio: COMMON NORMALS: no JVD, regular rhythm, S1 normal heart sound present, S2 normal heart sound present and No murmurs present (Cardio) RHYTHM: regular rhythm HEART SOUNDS: S1 normal heart sound present and S2 normal heart sound present GI: COMMON NORMALS: Normal to inspection, nondistended, normoactive bowel sounds present, Soft to palpation and non-tender PALPATION: Yes Soft to palpation Extremity: COMMON NORMALS: no joint enlargement and no pedal edema Neuro: COMMON NORMALS: patient oriented x3 and moves all extremities SENSORIUM/ORIENTATION: Yes alert Skin: COMMON NORMALS: no rashes or lesions noted GENERAL SKIN EXAM: no rashes or lesions noted Urinary Catheter Management: Cosby: Cath Placed During This Visit: yes Reason for Continuing Indwelling Catheter: Accurate Measurement of Urinary Output in Critically Ill Patients Urinary Catheter Date of Insertion: 12/17/22 Urinary Catheter Time of Insertion: 02:00 Data 12/20/22 05:12 12/20/22 05:12 Micro: Microbiology 12/17/22 08:22 Urine Culture - Final Urine,Clean Catch A&P Assessment and plan (1) Acute on chronic respiratory failure with hypoxia and hypercapnia: 67-year-old male with a past medical history of COPD, chronic hypoxia, CAD presenting to the emergency room today with acute on chronic hypoxic hypercapnic respiratory failure diastolic CHF exacerbation, multifactorial from pneumonia, COPD, Continues to require 8 L nasal cannula oxygen. Not normally on oxygen. Diminished air entry. Severe exacerbation of COPD, noted moderate hiatal hernia, consideration of possible aspiration pneumonitis/chemical pneumonitis although no obvious pneumonia, dependent airspace infiltrates noted on CTA. Reviewed CTA results. No PE. He is not normally on oxygen. Subjectively he is feeling slightly better. Discussed his condition and plan going forward with him. Switch to Solu-Medrol 40 mg every 6 hours. PPI prophylaxis with risk of gastritis. Reviewed blood glucose with risk of hyperglycemia Continue ceftriaxone. We will request sputum culture. CBC reviewed, noted mild leukocytosis, possibly some demargination, however, we will follow-up CBC. Monitor for any signs of developing sepsis. Reviewed bacterial antigens noted received. Continue breathing treatments. Add I-S. Reviewed TTE results. Right ventricle appears mildly dilated. Possibly normal EF. LV EF 68%, grade 1 diastolic function. Continue BiPAP support as needed. Continue oxygen support. Wean down as tolerating. Overnight pulse oximetry is ordered as he could benefit from BiPAP at home. Follow-up. May require oxygen at discharge. Discussed with case management. -NSTEMI, completed 48 hours of therapeutic Lovenox, switch to DVT prophylaxis -Full code -Lovenox for DVT prophylaxis (2) Acute exacerbation of chronic obstructive airways disease: Likely triggered by acute bronchiolitis, pneumonia. Management as above (3) Acute bronchiolitis: Empiric abx as above (4) NSTEMI (non-ST elevated myocardial infarction): Possibly NSTEMI versus demand ischemia Completed 48 hours of therapeutic Lovenox Continue aspirin 81 mg, Plavix 75 mg (5) Congestive heart failure: In negative balance, -1.2 L Reviewed chemistry, potassium 4, magnesium 2.6. Renal function reviewed, BUN 23, creatinine 0.8. Phosphorus reviewed, 4.6. Follow-up chemistry, electrolytes, renal function requested. (6) Altered mental status: Likely secondary hypercarbia, resolved (7) Pneumonia: (8) Acute exacerbation of CHF (congestive heart failure): (9) COPD (chronic obstructive pulmonary disease): Qualifiers: COPD type: chronic bronchitis Chronic bronchitis type: simple Qualified Code(s): J41.0 - Simple chronic bronchitis (10) CHF (congestive heart failure), NYHA class III: Qualifiers: Congestive heart failure type: unspecified Qualified Code(s): I50.9 - Heart failure, unspecified (11) Dyslipidemia (high LDL; low HDL): (12) HTN (hypertension): Qualifiers: Hypertension type: essential hypertension Qualified Code(s): I10 - Essential (primary) hypertension (13) CAD S/P percutaneous coronary angioplasty: (14) Acute kidney injury superimposed on CKD: Plan DVT prophylaxis: Lovenox PUD prophylaxis: Protonix 40 mg daily Full code Attestations Medical Necessity Statement*: Continue admission for assessment management of respiratory failure. Diagnoses Acute on chronic respiratory failure with hypoxia and hypercapnia J96.21; J96.22 Acute exacerbation of chronic obstructive airways disease J44.1 Acute bronchiolitis J21.9 NSTEMI (non-ST elevated myocardial infarction) I21.4 Congestive heart failure I50.9 Altered mental status R41.82 Pneumonia J18.9 Acute exacerbation of CHF (congestive heart failure) I50.9 COPD (chronic obstructive pulmonary disease) J41.0 COPD type: chronic bronchitis Chronic bronchitis type: simple CHF (congestive heart failure), NYHA class III I50.9 Congestive heart failure type: unspecified Dyslipidemia (high LDL; low HDL) E78.5 HTN (hypertension) I10 Hypertension type: essential hypertension CAD S/P percutaneous coronary angioplasty I25.10; Z98.61 Acute kidney injury superimposed on CKD N17.9; N18.9
[2022-12-20] MEDS: methylPREDNISolone sod succ 40 MG in water for injection-sterile 1 ML 12 MG IVP ×2 (11:43→18:09)
--- NOTE | 2022-12-20 15:50 | PC.NURSE ---
Transfer Note Patient transferred to med-surg room 268 from ICU via wheelchair. Handoff report given to ELISA Norris. Patient oriented to environment and equipment. Covering service notified. Orders reviewed and will continue to monitor. Upon transfer patient is alert/oriented x4, no reports of pain. All patient belongings transferred with patient and placed at bedside.
[2022-12-21] VITALS (15 sets, daily range): BP systolic 114–133; BP diastolic 73–87; PULSE 55–81; RESP 14–20; TEMP 36.2–36.8; O2SAT 89–96
[2022-12-21] MEDS: methylPREDNISolone sod succ 40 MG in water for injection-sterile 1 ML 12 MG IVP ×4 (00:31→20:16)
[2022-12-21] MEDS: cefTRIAXone 1,000 MG in sodium chloride 0.9% (plus) 50 ML 100 MG IV (00:31)
[2022-12-21] MEDS: ipratropium-albuterol 3 mL Neb INHALATION ×4 (01:32→20:53)
[2022-12-21 05:48] LABS: Basophils % 0.1 %; Hematocrit 53.1 % (37-53); Lymphocytes # 0.8 10^3/uL (0.8-4.8); Lymphocytes % 7.4 %; Mean Corpuscular HGB Conc 32.2 g/dL (30-55); Mean Corpuscular Hemoglobin 30.3 pg (27-33); Mean Platelet Volume 9.8 fL (7.4-10.4); Monocytes # 0.3 10^3/uL (0.2-0.9); Monocytes % 3.2 %; Neutrophils # 9.02 10^3/uL (1.8-7.7); Neutrophils % 88.9 %; Nucleated Red Blood Cells % 0 %; Platelet Count 245 10^3/cmm (157-399); Red Blood Count 5.65 10^6/uL (3.85-5.65); Red Cell Distribution Width 13.5 % (12.1-15.1); White Blood Count 10.14 10^3/uL (3.29-11.43)
[2022-12-21] MEDS: enoxaparin 40 mg/0.4 mL Syringe SUBCUT (06:01)
[2022-12-21 07:07] LABS: Alanine Aminotransferase 24 U/L (0-41); Albumin Level 3.3 g/dL (3.5-5.2); Alkaline Phosphatase 76 U/L (40-130); Anion Gap 10.2 (5-19); Aspartate Amino Transferase 18 U/L (0-40); Blood Urea Nitrogen 24 mg/dL (8-23); C Reactive Protein 19.9 mg/L (0.0-4.9); Calcium 9.5 mg/dL (8.5-10.5); Chloride 89 mmol/L (98-107); Globulin 3.2 g/dL (1.3-4.6); Glomerular Filtration Rate 134.8 mL/min (90-130); Glucose 166 mg/dL (65-115); Magnesium 2.4 mg/dL (1.7-2.3); NT Pro B Type Natriuretic Pept 59 pg/mL (0-125); Osmolality Calculated 292 mOsm/kg (285-295); Phosphorus 3.8 mg/dL (2.5-4.5); Potassium 4.2 mmol/L (3.5-5.1); Sodium 137 mmol/L (136-145); Total Bilirubin 0.3 mg/dL (0.15-1.2); Total Protein 6.5 g/dL (6.6-8.7)
[2022-12-21 07:14] LABS: Carbon Dioxide 42 mmol/L (22-29)
[2022-12-21] MEDS: budesonide 0.5 mg/2 mL Neb INHALATION ×2 (08:07→20:53)
[2022-12-21] MEDS: docusate sodium 100 mg Capsule PO ×2 (10:00→17:36)
[2022-12-21] MEDS: aspirin 81 mg EC Tablet PO (10:00)
[2022-12-21] MEDS: clopidogrel 75 mg Tablet PO (10:00)
[2022-12-21] MEDS: pantoprazole DR 40 mg Tablet PO (10:00)
[2022-12-21] MEDS: atorvastatin 40 mg Tablet 80 MG PO (10:00)
[2022-12-21] MEDS: carvedilol 12.5 mg Tablet PO ×2 (10:00→17:36)
[2022-12-21] MEDS: polyethylene glycol 3350 Pkt 17 gm PO (10:00)
--- NOTE | 2022-12-21 11:21 | PC.SOCIAL ---
IMM Updated Updated pt on IMM. No questions voiced. Provided pt a copy. Initialed, dated, & timed copy in chart.
--- NOTE | 2022-12-21 15:58 | P.PN_ITS ---
Subjective Subjective: He is feeling slightly better today. Denies any additional new symptoms. Discussed with him change in steroid. Vitals/I&O/Wt Last Vital Signs Temp 97.5 F L 12/21/22 11:28 Pulse 74 12/21/22 13:31 Resp 18 12/21/22 13:26 BP 118/75 12/21/22 11:28 Pulse Ox 92 12/21/22 13:26 O2 Del Method High Flow Nasal Cannula 12/21/22 13:26 O2 Flow Rate 7 12/21/22 13:26 FiO2 50 12/21/22 04:00 12/21/22 12/21/22 12/21/22 06:59 14:59 22:59 Intake Total 52 / 864 960 / 960 Output Total 450 / 1989 Balance -398 / -1126 960 / 960 Physical Exam Const: COMMON NORMALS: patient oriented x3 and alert GENERAL APPEARANCE: c ooperative ORIENTATION/CONSCIOUSNESS: Yes awake HENMT: COMMON NORMALS: oropharynx normal Neck/C-Spine: COMMON NORMALS: no JVD Resp: COMMON NORMALS: normal respiratory effort and clear to auscultation bilaterally AUSCULTATION: clear to auscultation bilaterally and diminished lung sounds (Slight improvement.) Cardio: COMMON NORMALS: no JVD, regular rhythm, S1 normal heart sound present, S2 normal heart sound present and No murmurs present (Cardio) RHYTHM: regular rhythm HEART SOUNDS: S1 normal heart sound present and S2 normal heart sound present GI: COMMON NORMALS: Normal to inspection, nondistended, normoactive bowel sounds present, Soft to palpation and non-tender PALPATION: Yes Soft to palpation Extremity: COMMON NORMALS: no joint enlargement and no pedal edema Neuro: COMMON NORMALS: patient oriented x3 and moves all extremities SENSORIUM/ORIENTATION: Yes alert Skin: COMMON NORMALS: no rashes or lesions noted GENERAL SKIN EXAM: no rashes or lesions noted Urinary Catheter Management: Cosby: Cath Placed During This Visit: yes Reason for Continuing Indwelling Catheter: Other Urinary Catheter Date of Insertion: 12/17/22 Urinary Catheter Time of Insertion: 02:00 Data 12/21/22 05:09 12/21/22 06:26 Micro: Microbiology 12/20/22 18:17 Gram Stain - Final Sputum - Expectorated Sputum A&P Assessment and plan (1) Acute on chronic respiratory failure with hypoxia and hypercapnia: 67-year-old male with a past medical history of COPD, chronic hypoxia, CAD presenting to the emergency room today with acute on chronic hypoxic hypercapnic respiratory failure diastolic CHF exacerbation, multifactorial from pneumonia, COPD, Slight improvement in O2 requirement and by subjective report. Continue IV steroids. Reviewed sputum culture. Gram stain with, negative rods, gram-positive rods. Gram-positive cocci in pairs. Pending, follow-up. Reviewed blood culture. Negative to date. Reviewed blood counts. WBC normal. Is noted to have mild LV neutrophils 9.02. On review of vital signs he Remains afebrile. continue ceftriaxone, Solu-Medrol, breathing treatments, encouraged incentive spirometer. Discussed with case management. Reviewed glucose. Continue to monitor. At risk of hyperglycemia with steroids. Severe exacerbation of COPD, noted moderate hiatal hernia, consideration of possible aspiration pneumonitis/chemical pneumonitis although no obvious pneumonia, dependent airspace infiltrates noted on CTA. Reviewed CTA results. No PE. Reviewed TTE results. Right ventricle appears mildly dilated. Possibly normal EF. LV EF 68%, grade 1 diastolic function. He is not normally on oxygen. Continue BiPAP support as needed. Continue oxygen support. Wean down as tolerating. Overnight pulse oximetry Reviewed. Discussed with case management. May require oxygen at discharge. -NSTEMI, completed 48 hours of therapeutic Lovenox, switch to DVT prophylaxis -Full code -Lovenox for DVT prophylaxis (2) Acute exacerbation of chronic obstructive airways disease: Likely triggered by acute bronchiolitis, pneumonia. Management as above (3) Acute bronchiolitis: Empiric abx as above (4) NSTEMI (non-ST elevated myocardial infarction): Possibly NSTEMI versus demand ischemia Completed 48 hours of therapeutic Lovenox Continue aspirin 81 mg, Plavix 75 mg (5) Congestive heart failure: In negative balance, -1.2 L Reviewed chemistry, potassium 4, magnesium 2.6. Renal function reviewed, BUN 23, creatinine 0.8. Phosphorus reviewed, 4.6. Follow-up chemistry, electrolytes, renal function requested. (6) Altered mental status: Likely secondary hypercarbia, resolved (7) Pneumonia: (8) Acute exacerbation of CHF (congestive heart failure): (9) COPD (chronic obstructive pulmonary disease): Qualifiers: COPD type: chronic bronchitis Chronic bronchitis type: simple Qualified Code(s): J41.0 - Simple chronic bronchitis (10) CHF (congestive heart failure), NYHA class III: Qualifiers: Congestive heart failure type: unspecified Qualified Code(s): I50.9 - Heart failure, unspecified (11) Dyslipidemia (high LDL; low HDL): (12) HTN (hypertension): Qualifiers: Hypertension type: essential hypertension Qualified Code(s): I10 - Essential (primary) hypertension (13) CAD S/P percutaneous coronary angioplasty: (14) Acute kidney injury superimposed on CKD: Plan DVT prophylaxis: Lovenox PUD prophylaxis: Protonix 40 mg daily Full code Attestations Medical Necessity Statement*: Continue admission for assessment management of respiratory failure. Diagnoses Acute on chronic respiratory failure with hypoxia and hypercapnia J96.21; J96.22 Acute exacerbation of chronic obstructive airways disease J44.1 Acute bronchiolitis J21.9 NSTEMI (non-ST elevated myocardial infarction) I21.4 Congestive heart failure I50.9 Altered mental status R41.82 Pneumonia J18.9 Acute exacerbation of CHF (congestive heart failure) I50.9 COPD (chronic obstructive pulmonary disease) J41.0 COPD type: chronic bronchitis Chronic bronchitis type: simple CHF (congestive heart failure), NYHA class III I50.9 Congestive heart failure type: unspecified Dyslipidemia (high LDL; low HDL) E78.5 HTN (hypertension) I10 Hypertension type: essential hypertension CAD S/P percutaneous coronary angioplasty I25.10; Z98.61 Acute kidney injury superimposed on CKD N17.9; N18.9
[2022-12-22] VITALS (17 sets, daily range): BP systolic 110–135; BP diastolic 66–80; PULSE 48–73; RESP 14–20; TEMP 36.6–36.9; O2SAT 90–96
[2022-12-22] MEDS: ipratropium-albuterol 3 mL Neb INHALATION ×4 (01:04→20:17)
[2022-12-22] MEDS: cefTRIAXone 1,000 MG in sodium chloride 0.9% (plus) 50 ML 100 MG IV (01:10)
[2022-12-22] MEDS: methylPREDNISolone sod succ 40 MG in water for injection-sterile 1 ML 12 MG IVP ×4 (03:04→22:03)
--- NOTE | 2022-12-22 04:48 | PC.NURSE ---
Patient's continuous pulse ox began to alarm and patient was noted to be sustaining an o2 of 82-83%. Bi-Pap in place and with good seal. Patient waken and sat higher in bed. With this no significant change in saturation. RT called and informed. Instructed to use the temp 100% oxygen setting on Bi-Pap until they could come to evaluate. This was done and patient now at 88%
[2022-12-22 05:47] LABS: Basophils % 0.1 %; Hematocrit 51.9 % (37-53); Lymphocytes # 0.6 10^3/uL (0.8-4.8); Lymphocytes % 5.5 %; Mean Corpuscular HGB Conc 33.3 g/dL (30-55); Mean Corpuscular Hemoglobin 30.1 pg (27-33); Mean Corpuscular Volume 90.3 fl (82-101); Monocytes # 0.5 10^3/uL (0.2-0.9); Monocytes % 4.8 %; Neutrophils # 9.26 10^3/uL (1.8-7.7); Neutrophils % 89.1 %; Nucleated Red Blood Cells % 0 %; Platelet Count 263 10^3/cmm (157-399); Red Blood Count 5.75 10^6/uL (3.85-5.65); Red Cell Distribution Width 13.5 % (12.1-15.1); White Blood Count 10.39 10^3/uL (3.29-11.43)
[2022-12-22] MEDS: enoxaparin 40 mg/0.4 mL Syringe SUBCUT (06:06)
[2022-12-22 06:07] LABS: Blood Urea Nitrogen 26 mg/dL (8-23); Calcium 9.5 mg/dL (8.5-10.5); Carbon Dioxide 36 mmol/L (22-29); Chloride 91 mmol/L (98-107); Glomerular Filtration Rate 134.8 mL/min (90-130); Glucose 163 mg/dL (65-115); Osmolality Calculated 290 mOsm/kg (285-295); Sodium 136 mmol/L (136-145)
[2022-12-22 06:08] LABS: Anion Gap 13.6 (5-19); Potassium 4.6 mmol/L (3.5-5.1)
[2022-12-22] MEDS: budesonide 0.5 mg/2 mL Neb INHALATION ×2 (08:01→20:17)
[2022-12-22] MEDS: atorvastatin 40 mg Tablet 80 MG PO (08:19)
[2022-12-22] MEDS: clopidogrel 75 mg Tablet PO (08:19)
[2022-12-22] MEDS: pantoprazole DR 40 mg Tablet PO (08:19)
[2022-12-22] MEDS: aspirin 81 mg EC Tablet PO (08:19)
[2022-12-22] MEDS: docusate sodium 100 mg Capsule PO ×2 (08:19→17:32)
[2022-12-22] MEDS: polyethylene glycol 3350 Pkt 17 gm PO (08:19)
[2022-12-22] MEDS: carvedilol 12.5 mg Tablet PO ×2 (08:19→17:32)
--- NOTE | 2022-12-22 15:14 | P.PN_ITS ---
Subjective Subjective: He denies any new symptoms today. Feeling about the same. Not worse. Perhaps mildly better. He is coughing, not bringing up much phlegm. Vitals/I&O/Wt Last Vital Signs Temp 98.0 F 12/22/22 11:41 Pulse 73 12/22/22 14:13 Resp 20 H 12/22/22 14:05 BP 117/75 12/22/22 11:41 Pulse Ox 95 12/22/22 14:05 O2 Del Method High Flow Nasal Cannula 12/22/22 14:05 O2 Flow Rate 7 12/22/22 14:05 FiO2 50 12/22/22 04:00 12/22/22 12/22/22 12/22/22 06:59 14:59 22:59 Intake Total 51 / 1373 601 / 601 Output Total 800 / 1650 Balance -749 / -277 601 / 601 Physical Exam Const: COMMON NORMALS: patient oriented x3 and alert GENERAL APPEARANCE: cooperative ORIENTATION/CONSCIOUSNESS: Yes awake HENMT: COMMON NORMALS: oropharynx normal Neck/C-Spine: COMMON NORMALS: no JVD Resp: COMMON NORMALS: normal respiratory effort and clear to auscultation bilaterally AUSCULTATION: clear to auscultation bilaterally and diminished lung sounds (Slight improvement.) Cardio: COMMON NORMALS: no JVD, regular rhythm, S1 normal heart sound present, S2 normal heart sound present and No murmurs present (Cardio) RHYTHM: regular rhythm HEART SOUNDS: S1 normal heart sound present and S2 normal heart sound present GI: COMMON NORMALS: Normal to inspection, nondistended, normoactive bowel sounds present, Soft to palpation and non-tender PALPATION: Yes Soft to palpation Extremity: COMMON NORMALS: no joint enlargement and no pedal edema Neuro: COMMON NORMALS: patient oriented x3 and moves all extremities S ENSORIUM/ORIENTATION: Yes alert Skin: COMMON NORMALS: no rashes or lesions noted GENERAL SKIN EXAM: no rash es or lesions noted Urinary Catheter Management: Cosby: Cath Placed During This Visit: yes, but has since been removed by the nurse Reason for Continuing Indwelling Catheter: Decision to DC Catheter Urinary Catheter Date of Insertion: 12/17/22 Urinary Catheter Time of Insertion: 02:00 Date Urinary Catheter Removed: 12/21/22 Time Urinary Catheter Discontinued: 17:47 Data 12/22/22 05:30 12/22/22 05:30 Micro: Microbiology 12/20/22 18:17 Gram Stain - Final Sputum - Expectorated Sputum Sputum Culture - Preliminary 12/16/22 18:48 Blood Culture - Final Blood NO GROWTH AFTER 5 DAYS 12/16/22 18:41 Blood Culture - Final Blood NO GROWTH AFTER 5 DAYS A&P Assessment and plan (1) Acute on chronic respiratory failure with hypoxia and hypercapnia: 67-year-old male with a past medical history of COPD, chronic hypoxia, CAD presenting to the emergency room today with acute on chronic hypoxic hypercapnic respiratory failure diastolic CHF exacerbation, multifactorial from pneumonia, COPD, Severe exacerbation of COPD. Still diminished air entry. Still hypoxic, requiring 7 L high flow cannula. Continue oxygen support. Continue IV steroid without de-escalation as per discussion with him at this time. Continue empiric antibiotic. Breathing treatments. Encouraged incentive spirometer, he states he is using it. Not much phlegm, but he will let us know if this should change, and a case may add an additional expectorants, flutter valve. Discussed with case management. Reviewed sputum culture. Noted normal nayely on day 1. Follow-up. Reviewed blood culture, noted preliminary negative. Follow-up. At risk of hyperglycemia. Reviewed glucose. Noted 163. Continue to monitor. Reviewed CBC. WBC normal. Remains afebrile. Severe exacerbation of COPD, noted moderate hiatal hernia, consideration of possible aspiration pneumonitis/chemical pneumonitis although no obvious pneumonia, dependent airspace infiltrates noted on CTA. Reviewed CTA results. No PE. Reviewed TTE results. Right ventricle appears mildly dilated. Possibly normal EF. LV EF 68%, grade 1 diastolic function. He is not normally on oxygen. He used to have a CPAP but is not sure where it is, needs to locate the machine prior to discharge. Continue BiPAP support as needed. Continue oxygen support. Wean down as tolerating. Overnight pulse oximetry Reviewed. Discussed with case management. May require oxygen at discharge. -NSTEMI, completed 48 hours of therapeutic Lovenox, switch to DVT prophylaxis -Full code -Lovenox for DVT prophylaxis (2) Acute exacerbation of chronic obstructive airways disease: Likely triggered by acute bronchiolitis, pneumonia. Management as above (3) Acute bronchiolitis: Empiric abx as above (4) NSTEMI (non-ST elevated myocardial infarction): Possibly NSTEMI versus demand ischemia Completed 48 hours of therapeutic Lovenox Continue aspirin 81 mg, Plavix 75 mg (5) Congestive heart failure: In negative balance, -1.2 L Reviewed chemistry, potassium 4, magnesium 2.6. Renal function reviewed, BUN 23, creatinine 0.8. Phosphorus reviewed, 4.6. Follow-up chemistry, electrolytes, renal function requested. (6) Altered mental status: Likely secondary hypercarbia, resolved (7) Pneumonia: (8) Acute exacerbation of CHF (congestive heart failure): (9) COPD (chronic obstructive pulmonary disease): Qualifiers: COPD type: chronic bronchitis Chronic bronchitis type: simple Qualified Code(s): J41.0 - Simple chronic bronchitis (10) CHF (congestive heart failure), NYHA class III: Qualifiers: Congestive heart failure type: unspecified Qualified Code(s): I50.9 - Heart failure, unspecified (11) Dyslipidemia (high LDL; low HDL): (12) HTN (hypertension): Qualifiers: Hypertension type: essential hypertension Qualified Code(s): I10 - Essential (primary) hypertension (13) CAD S/P percutaneous coronary angioplasty: (14) Acute kidney injury superimposed on CKD: Plan DVT prophylaxis: Lovenox PUD prophylaxis: Protonix 40 mg daily Full code Attestations Medical Necessity Statement*: Continue admission for assessment management of respiratory failure. and High MDM includes described risk of complication, morbidity or mortality of management as documented Diagnoses Acute on chronic respiratory failure with hypoxia and hypercapnia J96.21; J96.22 Acute exacerbation of chronic obstructive airways disease J44.1 Acute bronchiolitis J21.9 NSTEMI (non-ST elevated myocardial infarction) I21.4 Congestive heart failure I50.9 Altered mental status R41.82 Pneumonia J18.9 Acute exacerbation of CHF (congestive heart failure) I50.9 COPD (chronic obstructive pulmonary disease) J41.0 COPD type: chronic bronchitis Chronic bronchitis type: simple CHF (congestive heart failure), NYHA class III I50.9 Congestive heart failure type: unspecified Dyslipidemia (high LDL; low HDL) E78.5 HTN (hypertension) I10 Hypertension type: essential hypertension CAD S/P percutaneous coronary angioplasty I25.10; Z98.61 Acute kidney injury superimposed on CKD N17.9; N18.9
[2022-12-23] VITALS (12 sets, daily range): BP systolic 110–127; BP diastolic 69–85; PULSE 58–83; RESP 16–18; TEMP 36.3–36.4; O2SAT 87–98
[2022-12-23] MEDS: cefTRIAXone 1,000 MG in sodium chloride 0.9% (plus) 50 ML 100 MG IV (01:14)
[2022-12-23] MEDS: ipratropium-albuterol 3 mL Neb INHALATION ×3 (01:52→13:28)
[2022-12-23] MEDS: methylPREDNISolone sod succ 40 MG in water for injection-sterile 1 ML 12 MG IVP ×2 (03:43→09:14)
[2022-12-23 05:08] LABS: Basophils % 0.1 %; Hematocrit 52.6 % (37-53); Lymphocytes # 0.5 10^3/uL (0.8-4.8); Lymphocytes % 5.4 %; Mean Corpuscular HGB Conc 32.3 g/dL (30-55); Mean Corpuscular Hemoglobin 29.4 pg (27-33); Mean Corpuscular Volume 90.8 fl (82-101); Monocytes # 0.6 10^3/uL (0.2-0.9); Monocytes % 5.9 %; Neutrophils # 8.75 10^3/uL (1.8-7.7); Neutrophils % 88.3 %; Nucleated Red Blood Cells % 0 %; Platelet Count 244 10^3/cmm (157-399); Red Blood Count 5.79 10^6/uL (3.85-5.65); Red Cell Distribution Width 13.4 % (12.1-15.1); White Blood Count 9.91 10^3/uL (3.29-11.43)
[2022-12-23 05:31] LABS: Blood Urea Nitrogen 24 mg/dL (8-23); Calcium 9.2 mg/dL (8.5-10.5); Carbon Dioxide 40 mmol/L (22-29); Chloride 93 mmol/L (98-107); Glomerular Filtration Rate 134.8 mL/min (90-130); Glucose 161 mg/dL (65-115); Osmolality Calculated 294 mOsm/kg (285-295); Sodium 138 mmol/L (136-145)
[2022-12-23 05:33] LABS: Anion Gap 9.8 (5-19); Potassium 4.8 mmol/L (3.5-5.1)
[2022-12-23] MEDS: enoxaparin 40 mg/0.4 mL Syringe SUBCUT (06:11)
[2022-12-23] MEDS: budesonide 0.5 mg/2 mL Neb INHALATION (08:22)
[2022-12-23] MEDS: aspirin 81 mg EC Tablet PO (09:09)
[2022-12-23] MEDS: pantoprazole DR 40 mg Tablet PO (09:10)
[2022-12-23] MEDS: carvedilol 12.5 mg Tablet PO (09:10)
[2022-12-23] MEDS: clopidogrel 75 mg Tablet PO (09:11)
[2022-12-23] MEDS: atorvastatin 40 mg Tablet 80 MG PO (09:11)
--- NOTE | 2022-12-23 10:26 | PC.SOCIAL ---
IMM Updated Updated pt on IMM. No questions voiced. Provided pt a copy. Initialed, dated, & timed copy in chart.
--- NOTE | 2022-12-23 10:46 | PM.DCS ---
Discharge Providers Date of Admission: 12/16/22 19:32 Date of Discharge: December 23, 2022 Attending Provider at Admission: Theron Dougherty MD Attending Provider at Discharge: Kareem Graham Primary Care Provider: Jazzy Hendricks MD Diagnoses at Discharge Discharge Diagnosis (1) Acute on chronic respiratory failure with hypoxia and hypercapnia: Status: Acute (2) Acute exacerbation of chronic obstructive airways disease: Status: Acute (3) Acute bronchiolitis: Status: Acute (4) NSTEMI (non-ST elevated myocardial infarction): Status: Acute (5) Congestive heart failure: Status: Acute (6) Altered mental status: Status: Acute (7) Pneumonia: Status: Acute (8) Acute exacerbation of CHF (congestive heart failure): Status: Acute (9) COPD (chronic obstructive pulmonary disease): Status: Acute Qualifiers: COPD type: chronic bronchitis Chronic bronchitis type: simple Qualified Code(s): J41.0 - Simple chronic bronchitis (10) CHF (congestive heart failure), NYHA class III: Status: Acute Qualifiers: Congestive heart failure type: unspecified Qualified Code(s): I50.9 - Heart failure, unspecified (11) Dyslipidemia (high LDL; low HDL): Status: Acute (12) HTN (hypertension): Status: Chronic Qualifiers: Hypertension type: essential hypertension Qualified Code(s): I10 - Essential (primary) hypertension Permanent problem details: Hydrochlorothiazide and lisinopril discontinued due to hypotension. (13) CAD S/P percutaneous coronary angioplasty: Status: Chronic (14) Acute kidney injury superimposed on CKD: Status: Acute Reason for Visit Reason for Visit: SOB Hospital Course Hospital Course Pleasant 67-year-old gentleman with history of HFpEF, V-fib cardiac arrest, multivessel CAD, coronary stenting, COPD, HTN, HLD, former smoker, was admitted for assessment management with acute respiratory failure with hypoxia and hypercapnia. Not normally on oxygen. With severe exacerbation of COPD, possible superimposed pneumonia. Was treated with IV steroids, initially with antibiotic coverage with ceftriaxone azithromycin, breathing treatments, required AVAPS support, additionally treated for exacerbation of diastolic CHF with IV diuresis. Altered mental status on presentation, improved with treatment. Volume status compensated with IV diuretics. Echocardiogram with normal ejection fraction, no RWMA. Grade 1 diastolic dysfunction. Right ventricle mildly dilated with possibly normal EF. Technically difficult study. Subsequently slow improvement of severe exacerbation of COPD, decreased air entry. Otherwise CT angiogram negative for PE. Emphysema, bilateral dependent airspace infiltrates on CTA on presentation. Continued with IV steroids, breathing treatments, empiric antibiotic. Respiratory culture pending, so far with heavy normal nayely. He is noted to have moderate hiatal hernia and is at risk of reflux, chemical pneumonitis. Please revisit with him regarding hernia. He is instructed to avoid food or drink for hours before sleep. He is asked to follow-up for assessment by pulmonology as well as reassessment by cardiology. Physical Exam Const: COMMON NORMALS: patient oriented x3 and alert GENERAL APPEARANCE: cooperative ORIENTATION/CONSCIOUSNESS: Yes awake HENMT: COMMON NORMALS: oropharynx normal Neck/C-Spine: COMMON NORMALS: no JVD Resp: COMMON NORMALS: normal respiratory effort and clear to auscultation bilaterally AUSCULTATION: clear to auscultation bilaterally and diminished lung sounds (Slight improvement.) Cardio: COMMON NORMALS: no JVD, regular rhythm, S1 normal heart sound present, S2 normal heart sound present and No murmurs present (Cardio) RHYTHM: regular rhythm HEART SOUNDS: S1 normal heart sound present and S2 normal heart sound present GI: COMMON NORMALS: Normal to inspection, nondistended, normoactive bowel sounds present, Soft to palpation and non-tender PALPATION: Yes Soft to palpation Extremity: COMMON NORMALS: no joint enlargement and no pedal edema Neuro: COMMON NORMALS: patient oriented x3 and moves all extremities SENSORIUM/ORIENTATION: Yes alert Skin: COMMON NORMALS: no rashes or lesions noted GENERAL SKIN EXAM: no rashes or lesions noted Urinary Catheter Management: Cosby: Cath Placed During This Visit: yes, but has since been removed by the nurse Reason for Continuing Indwelling Catheter: Decision to DC Catheter Urinary Catheter Date of Insertion: 12/17/22 Urinary Catheter Time of Insertion: 02:00 Date Urinary Catheter Removed: 12/21/22 Time Urinary Catheter Discontinued: 17:47 Discharge Data Studies Completed and Pending Completed Studies During Hospitalization Category Date Time Status CT angio chest PE protcl [id number] Stat Cat Scan 12/18/22 16:[address] chest wo con [id number] Stat Cat Scan 12/16/22 19:56 Completed XR chest 1V portable [id number] Stat Exams 12/16/22 17:45 Completed CV. echo wo/w contrast [id number] Routine Ultrasound 12/17/22 00:03 Completed Pending at discharge Category Date Time Status Basic Metabolic Panel AM LABS Lab 12/24/22 04:00 Ordered Complete Blood Count w/Auto AM LABS Lab 12/24/22 04:00 Ordered Sputum Culture and Gram Stain Routine Lab 12/20/22 18:17 Results Radiology Impressions Chest X-Ray 12/16/22 17:45 IMPRESSION: Suspected ground-glass opacities in both lungs could represent multilobar pneumonia. Chest CT 12/16/22 19:56 IMPRESSION: 1. Diffuse scattered tree-in-bud opacities in both lungs. This most likely represents infectious bronchiolitis. Chest CTA 12/18/22 16:47 IMPRESSION: 1. Negative for pulmonary embolus. 2. Coronary artery atherosclerotic calcifications. 3. Cardiomegaly. 4. Moderate hiatal hernia. 5. Emphysematous changes. 6. Bilateral largely dependent airspace infiltrates. 7. Mild perinephric edema bilaterally left greater than right likely reflecting renal insufficiency, please correlate for pyelonephritis. COMMENTS: In the absence of a history or active diagnosis of lung cancer, it is recommended that this patient with emphysema be evaluated for enrollment in a low dose CT lung cancer screening program. Laboratory Results WBC 9.91 10^3/uL (3.29-11.43) 12/23/22 04:25 RBC 5.79 10^6/uL (3.85-5.65) H 12/23/22 04:25 Hgb 17.00 g/dL (11.27-16.99) H 12/23/22 04:25 Hct 52.6 % (37-53) 12/23/22 04:25 MCV 90.8 fl (82-101) 12/23/22 04:25 MCH 29.4 pg (27-33) 12/23/22 04:25 MCHC 32.3 g/dL (30-55) 12/23/22 04:25 RDW 13.4 % (12.1-15.1) 12/23/22 04:25 Plt Count 244 10^3/cmm (157-399) 12/23/22 04:25 MPV 10.0 fL (7.4-10.4) 12/23/22 04:25 Neut % (Auto) 88.3 % 12/23/22 04:25 Lymph % (Auto) 5.4 % 12/23/22 04:25 [place] % (Auto) 5.9 % 12/23/22 04:25 Eos % (Auto) 0.0 % 12/23/22 04:25 Baso % (Auto) 0.1 % 12/23/22 04:25 Neut # (Auto) 8.75 10^3/uL (1.8-7.7) H 12/23/22 04:25 Lymph # (Auto) 0.5 10^3/uL (0.8-4.8) L 12/23/22 04:25 [place] # (Auto) 0.6 10^3/uL (0.2-0.9) 12/23/22 04:25 Eos # (Auto) 0.0 10^3/uL (0.0-0.8) 12/23/22 04:25 Baso # (Auto) 0.0 10^3/uL (0.0-0.1) 12/23/22 04:25 Nucleated RBC % (auto) 0 % 12/23/22 04:25 Nucleated RBCs # 0.0 /100WBC 12/23/22 04:25 PT 14.30 SECONDS (12.1-14.9) 12/16/22 17:45 INR 1.07 (0.8-1.2) 12/16/22 17:45 Specimen Type Arterial 12/19/22 04:00 Sample Site Radial, right 12/19/22 04:00 ABG pH 7.36 (7.35-7.45) 12/19/22 04:00 ABG pCO2 69.2 mmHg (35-45) H* 12/19/22 04:00 ABG pO2 91.9 mmHg (80.0-100.0) 12/19/22 04:00 ABG HCO3 39.5 mmol/L (22-26) H 12/19/22 04:00 ABG O2 Saturation 98.9 12/17/22 00:10 ABG Base Excess 10.4 mmol/L (-2.0-2.0) H 12/19/22 04:00 [place] Test Pos 12/19/22 04:00 A-a O2 Gradient 28.9 mmHg (5-10) H 12/17/22 00:10 Hematocrit 50.5 % (42-52) 12/19/22 04:00 Hgb O2 Saturation 97.2 % (95-100) 12/17/22 00:10 Carboxyhemoglobin 1.3 %THgb (0.4-20.1) 12/17/22 00:10 Methemoglobin 0.4 % (0.4-1.5) 12/17/22 00:10 Total Hemoglobin 17.5 g/dL (14-18) 12/17/22 00:10 Sodium 143.0 mmol/L (131-143) 12/17/22 00:10 Potassium 4.1 mmol/L (3.5-5.0) 12/17/22 00:10 Glucose 136.0 mg/dL (70-115) H 12/17/22 00:10 Ionized Calcium 1.2 mmol/L (1.1-1.4) 12/17/22 00:10 O2 Delivery Device Bipap 12/19/22 04:00 FiO2 50.0 % 12/19/22 04:00 Tidal Volume 0.60 12/17/22 04:25 PEEP 8.0 cmH20 12/17/22 04:25 [employer] [employer] ID [email or web address] 12/19/22 04:00 Blood Gas Notified Time 1750 12/16/22 17:42 Sodium 138 mmol/L (136-145) 12/23/22 04:25 Potassium 4.8 mmol/L (3.5-5.1) 12/23/22 04:25 Chloride 93 mmol/L (98-107) L 12/23/22 04:25 Carbon Dioxide 40 mmol/L (22-29) H 12/23/22 04:25 Anion Gap 9.8 (5-19) 12/23/22 04:25 BUN 24 mg/dL (8-23) H 12/23/22 04:25 Creatinine 0.6 mg/dL (0.7-1.2) L 12/23/22 04:25 GFR Calculation 134.8 mL/min (90-130) H 12/23/22 04:25 Glucose 161 mg/dL (65-115) H 12/23/22 04:25 POC Glucose 132 mg/dL (70-110) H 12/17/22 00:02 Calculated Osmolality 294 mOsm/kg (285-295) 12/23/22 04:25 Lactic Acid 1.8 mmol/L (0.5-2.2) 12/16/22 17:45 Calcium 9.2 mg/dL (8.5-10.5) 12/23/22 04:25 Phosphorus 3.8 mg/dL (2.5-4.5) 12/21/22 06:26 Magnesium 2.4 mg/dL (1.7-2.3) H 12/21/22 06:26 Total Bilirubin 0.3 mg/dL (0.15-1.2) 12/21/22 06:26 AST 18 U/L (0-40) 12/21/22 06:26 ALT 24 U/L (0-41) 12/21/22 06:26 Alkaline Phosphatase 76 U/L (40-130) 12/21/22 06:26 Troponin T Baseline 43 ng/L (0-15) H 12/17/22 09:20 Troponin T 120 Minute 38.04 ng/L (0-15) H 12/17/22 11:20 Delta Troponin T -4.96 ABS# (0-10) L 12/17/22 11:20 Troponin T Hi Sens 6Hr 33.94 ng/L (0-15) H 12/17/22 15:00 Troponin T Hi Sens 6Hr Delta -9.06 ng/L (0-12) L 12/17/22 15:00 C-Reactive Protein 19.9 mg/L (0.0-4.9) H 12/21/22 06:26 NT-Pro-B Natriuret Pep 59 pg/mL (0-125) 12/21/22 06:26 Total Protein 6.5 g/dL (6.6-8.7) L 12/21/22 06:26 Albumin 3.3 g/dL (3.5-5.2) L 12/21/22 06:26 Globulin 3.2 g/dL (1.3-4.6) 12/21/22 06:26 Procalcitonin 0.10 ng/mL (0-0.5) 12/17/22 09:20 Urine Color Yellow (Yellow) 12/17/22 08:22 Urine Appearance Clear (CLEAR) 12/17/22 08:22 Urine pH 6 (5-7) 12/17/22 08:22 Ur Specific [place] 1.015 (1.005-1.030) 12/17/22 08:22 Urine Protein Neg (Negative) 12/17/22 08:22 Urine Glucose (UA) Norm (Normal) 12/17/22 08:22 Urine Ketones 1+ (Negative) H 12/17/22 08:22 Urine Blood 3+ (Negative) H 12/17/22 08:22 Urine Nitrate Negative (Negative) 12/17/22 08:22 Urine Bilirubin Neg (Negative) 12/17/22 08:22 Urine Urobilinogen Norm mg/dL (Negative) 12/17/22 08:22 Ur Leukocyte Esterase Negative (Negative) 12/17/22 08:22 Urine RBC 5-10 /hpf (0-2) H 12/17/22 08:22 Urine WBC 15-25 /hpf (0-5) H 12/17/22 08:22 Ur Squamous Epith Cells 0-4 /hpf (0-5) H 12/17/22 08:22 Amorphous Sediment Not Reportable 12/17/22 08:22 Urine Bacteria Trace /hpf (NONE) 12/17/22 08:22 Nasal Influ A H1 2009 PCR Not detected (NOT DETECT) 12/17/22 08:50 Adenovirus (PCR) Not detected (NOT DETECT) 12/17/22 08:50 C. pneumoniae DNA (PCR) Not detected (NOT DETECT) 12/17/22 08:50 Coronavirus 229E (PCR) Not detected (NOT DETECT) 12/17/22 08:50 Human Metapneumovir PCR Not detected (NOT DETECT) 12/17/22 08:50 Influenza A (H1) PCR Not detected (NOT DETECT) 12/17/22 08:50 Influenza A (H3) PCR Not detected (NOT DETECT) 12/17/22 08:50 Influenza Type A Ag negative (Negative) 12/16/22 18:33 Influenza Type A (PCR) Not detected (NOT DETECT) 12/17/22 08:50 Influenza Type B Ag negative (Negative) 12/16/22 18:33 Influenza Type B (PCR) Not detected (NOT DETECT) 12/17/22 08:50 M. pneumoniae (PCR) Not detected (NOT DETECT) 12/17/22 08:50 Parainfluenza 1 (PCR) Not detected (NOT DETECT) 12/17/22 08:50 Parainfluenza 2 (PCR) Not detected (NOT DETECT) 12/17/22 08:50 Parainfluenza 3 (PCR) Not detected (NOT DETECT) 12/17/22 08:50 Parainfluenza 4 (PCR) Not detected (NOT DETECT) 12/17/22 08:50 RSV Type A (PCR) Not detected (NOT DETECT) 12/17/22 08:50 RSV Type B (PCR) Not detected (NOT DETECT) 12/17/22 08:50 Entero/Rhino (PCR) Not detected (NOT DETECT) 12/17/22 08:50 SARS-CoV-2 (PCR) Not detected (NOT DETECT) 12/17/22 08:50 SARS-CoV-2 Ag (Rapid) negative (Negative) 12/16/22 19:10 MRSA (PCR) Not detected (NOT DETECTED) 12/17/22 08:30 Vitals Last Vital Signs Temp 97.5 F L 12/23/22 08:05 Pulse 69 12/23/22 08:29 Resp 16 12/23/22 08:23 BP 122/81 12/23/22 08:05 Pulse Ox 96 12/23/22 08:23 O2 Del Method High Flow Nasal Cannula 12/23/22 08:23 O2 Flow Rate 3 12/23/22 08:23 FiO2 50 12/22/22 04:00 Discharge Plan Discharge Patient Disposition: Home Condition: Stable Prescriptions: New Spiriva Respimat 1.25 mcg/actuation mist 2 inh inhalation QAM Qty: 4 1RF cefdinir 300 mg capsule 300 mg PO BID 5 Days Qty: 10 0RF prednisone 10 mg tablet 10 mg PO DAILY Qty: 13 0RF Rx Instructions: 3 tab daily for 2 days, then 2 tab for 2 days, then 1 tab for 2 days, then 1/2 tab for 2 days. albuterol sulfate 90 mcg/actuation HFA aerosol inhaler 2 inh inhalation Q6H PRN (Reason: shortness of breath or wheezing) Qty: 8.5 0RF Continued aspirin 81 mg tablet,delayed release (DR/EC) 81 mg PO DAILY nitroglycerin 0.4 mg tablet, sublingual 0.4 mg SUBLINGUAL Q5M PRN (Reason: Chest Pain) furosemide [Lasix] 40 mg tablet 40 mg PO QAM 90 Days Qty: 90 1RF clopidogrel 75 mg tablet 75 mg PO DAILY 90 Days Qty: 90 1RF rosuvastatin 40 mg tablet 40 mg PO DAILY 90 Days Qty: 90 3RF carvedilol 12.5 mg tablet 12.5 mg PO BID 90 Days Qty: 180 1RF Discharge Orders: Discharge Order (Routine); Ordered 12/23/22 Ordered By: Kareem Graham Referrals: Elpidio Knox MD [Physician] - 2 weeks (COPD) Jazzy Hendricks MD [Primary Care Provider] - 12/28/22 11:00 am Paola Francois FNP [Nurse Practitioner] - 1 week (CHF) Discharge Diet: Cardiac Discharge Activity: Oxygen as instructed Patient Instructions: Albuterol (By mouth), Tiotropium (By breathing), Heart Failure (GEN), Hiatal Hernia (GEN), Using Oxygen at Home (GEN), Aspiration Pneumonia (GEN), COPD (Chronic Obstructive Pulmonary Disease) (GEN), Bacterial Pneumonia (GEN), Opioid Safety Activity Restrictions/Additional Instructions: Follow-up with your primary doctor as well as with lung specialist for reassessment after severe exacerbation of COPD, suspected possible component of pneumonia. Continue to wear CPAP nightly for obstructive sleep apnea. Follow-up with your primary doctor also regarding moderate hiatal hernia. Avoid any food or drink for 4 hours before going to sleep to prevent reflux of stomach acid and contents triggering pneumonitis. Follow-up with your primary provider for reassessment of congestive heart failure. Maintain cardiac, low-sodium diet. Return to the hospital in case of any worsening or new concerning symptoms. Discharge Attestations Time Spent in Discharge Care*: greater than 30 min Quality Metrics Clinical Quality Measures [ No reported AMI, CVA or VTE this stay] Coding Level of Care Code 53036 Total time (in minutes) for Discharge: 40 Diagnoses Acute on chronic respiratory failure with hypoxia and hypercapnia J96.21; J96.22 Acute exacerbation of chronic obstructive airways disease J44.1 Acute bronchiolitis J21.9 NSTEMI (non-ST elevated myocardial infarction) I21.4 Congestive heart failure I50.9 Altered mental status R41.82 Pneumonia J18.9 Acute exacerbation of CHF (congestive heart failure) I50.9 COPD (chronic obstructive pulmonary disease) J41.0 COPD type: chronic bronchitis Chronic bronchitis type: simple CHF (congestive heart failure), NYHA class III I50.9 Congestive heart failure type: unspecified Dyslipidemia (high LDL; low HDL) E78.5 HTN (hypertension) I10 Hypertension type: essential hypertension CAD S/P percutaneous coronary angioplasty I25.10; Z98.61 Acute kidney injury superimposed on CKD N17.9; N18.9
== END 2022-12-23 14:08 | disposition home or self-care (01) | DRG 291 ==
LOC: ER 20:14 → MEDSURG 20:24 → ICU 21:23 → MEDSURG 12-20 15:50
PROVIDERS: Family Medicine; Student in an Organized Health Care Education/Training Program; Admitting Provider Student in an Organized Health Care Education/Training Program; Emergency Provider Family Medicine; PCP Family Medicine; Visit Provider Internal Medicine
DX: I13.0 Hypertensive heart and chronic kidney disease with heart failure and stage 1 through stage 4 chronic kidney disease, or unspecified chronic kidney disease (principal); I50.33 Acute on chronic diastolic (congestive) heart failure; J96.22 Acute and chronic respiratory failure with hypercapnia; J96.21 Acute and chronic respiratory failure with hypoxia; J21.9 Acute bronchiolitis, unspecified; I24.8 Other forms of acute ischemic heart disease; N17.9 Acute kidney failure, unspecified; N18.9 Chronic kidney disease, unspecified; I25.10 Atherosclerotic heart disease of native coronary artery without angina pectoris; Z95.5 Presence of coronary angioplasty implant and graft; Z86.74 Personal history of sudden cardiac arrest; E78.5 Hyperlipidemia, unspecified; Z87.891 Personal history of nicotine dependence; J43.9 Emphysema, unspecified; K44.9 Diaphragmatic hernia without obstruction or gangrene; Z79.82 Long term (current) use of aspirin; Z79.02 Long term (current) use of antithrombotics/antiplatelets; I10 Essential (primary) hypertension
CPT/HCPCS: 36415; 36416; 36600; 51702; 71045; 71250; 71275; 80048; 80051; 80053; 81001; 82330; 82803; 82805; 82962; 83605; 83735; 83880; 84100; 84145; 84484; 85025; 85610; 86140; 86403; 87040; 87070; 87086; 87205; 87426; 87486; 87581; 87633; 87641; 87804; 92523; 92610; 93005; 94640; 94660; 94760; 96365; 96372; 96375; 96376; 99291; C8929; J0456; J0696; J1100; J1650; J1940; J1956; J2920; J2930; J7050; J7512; J7626; Q9967

== ENCOUNTER → 2022-12-30 13:04 | Outpatient (BNVA) | payer MEDICARE, SELFPAY | PROVIDERS: PCP Family Medicine; Visit Provider Internal Medicine Cardiovascular Disease | DX: J18.9 Pneumonia, unspecified organism (principal); J44.1 Chronic obstructive pulmonary disease with (acute) exacerbation; I13.0 Hypertensive heart and chronic kidney disease with heart failure and stage 1 through stage 4 chronic kidney disease, or unspecified chronic kidney disease; N18.9 Chronic kidney disease, unspecified; I50.9 Heart failure, unspecified; N17.9 Acute kidney failure, unspecified; E78.5 Hyperlipidemia, unspecified; I25.10 Atherosclerotic heart disease of native coronary artery without angina pectoris; Z98.61 Coronary angioplasty status; Z87.891 Personal history of nicotine dependence | CPT/HCPCS: 99213 ==

== ENCOUNTER → 2023-01-04 12:52 | Outpatient (BNVA) | payer MEDICARE, SELFPAY | PROVIDERS: PCP Family Medicine; Visit Provider Internal Medicine Pulmonary Disease | DX: Z09 Encounter for follow-up examination after completed treatment for conditions other than malignant neoplasm (principal); J41.0 Simple chronic bronchitis; I50.9 Heart failure, unspecified; J96.12 Chronic respiratory failure with hypercapnia; Z91.89 Other specified personal risk factors, not elsewhere classified; Z87.891 Personal history of nicotine dependence | CPT/HCPCS: 99204 ==

== ENCOUNTER 2023-01-13 12:36 | Outpatient (CLI) | payer MEDICARE, SELFPAY ==
[2023-01-13 12:56] VITALS: PULSE 79; RESP 18; O2SAT 92
[2023-01-13 13:00] VITALS: PULSE 80
== END 2023-01-13 12:37 | disposition home or self-care (01) ==
LOC: RT 12:37
PROVIDERS: PCP Family Medicine; Visit Provider Internal Medicine Pulmonary Disease
DX: R06.02 Shortness of breath (principal)
CPT/HCPCS: 94060; 94618; 94726; 94729; J7613

== ENCOUNTER → 2023-04-15 08:50 | Outpatient (BNVA) | payer MEDICARE, SELFPAY | PROVIDERS: PCP Family Medicine; Visit Provider Internal Medicine Pulmonary Disease | DX: J41.0 Simple chronic bronchitis (principal); I50.9 Heart failure, unspecified; J96.12 Chronic respiratory failure with hypercapnia; Z91.89 Other specified personal risk factors, not elsewhere classified; Z87.891 Personal history of nicotine dependence; Z99.81 Dependence on supplemental oxygen; Z95.5 Presence of coronary angioplasty implant and graft; Z99.89 Dependence on other enabling machines and devices | CPT/HCPCS: 99214 ==

== ENCOUNTER → 2023-06-09 10:43 | Outpatient (BNVA) | payer MEDICARE, SELFPAY | PROVIDERS: PCP Family Medicine; Visit Provider Internal Medicine Cardiovascular Disease | DX: I13.0 Hypertensive heart and chronic kidney disease with heart failure and stage 1 through stage 4 chronic kidney disease, or unspecified chronic kidney disease (principal); N18.9 Chronic kidney disease, unspecified; I50.9 Heart failure, unspecified; N17.9 Acute kidney failure, unspecified; I25.10 Atherosclerotic heart disease of native coronary artery without angina pectoris; Z98.61 Coronary angioplasty status; E78.5 Hyperlipidemia, unspecified; J41.0 Simple chronic bronchitis; I25.2 Old myocardial infarction; Z87.891 Personal history of nicotine dependence | CPT/HCPCS: 99214 ==

== ENCOUNTER → 2023-06-29 11:20 | Outpatient (BNVA) | payer MEDICARE, SELFPAY | PROVIDERS: PCP Family Medicine; Visit Provider Family Medicine | DX: I10 Essential (primary) hypertension (principal); I50.9 Heart failure, unspecified; E78.5 Hyperlipidemia, unspecified; R73.03 Prediabetes | CPT/HCPCS: 80053; 80061; 83036 ==

== ENCOUNTER → 2023-11-09 08:42 | Outpatient (BNVA) | payer MEDICARE, SELFPAY | PROVIDERS: PCP Family Medicine; Visit Provider Internal Medicine Critical Care Medicine | DX: J96.11 Chronic respiratory failure with hypoxia (principal); J96.12 Chronic respiratory failure with hypercapnia; J41.0 Simple chronic bronchitis; G47.33 Obstructive sleep apnea (adult) (pediatric); I50.32 Chronic diastolic (congestive) heart failure; E66.01 Morbid (severe) obesity due to excess calories; Z68.42 Body mass index [BMI] 45.0-49.9, adult; Z71.82 Exercise counseling | CPT/HCPCS: 99214 ==

== ENCOUNTER → 2023-12-09 09:24 | Outpatient (BNVA) | payer MEDICARE, SELFPAY | PROVIDERS: PCP Family Medicine; Visit Provider Nurse Practitioner Family | DX: I11.0 Hypertensive heart disease with heart failure (principal); I50.9 Heart failure, unspecified | CPT/HCPCS: 99214 ==

== ENCOUNTER → 2024-01-10 09:57 | Outpatient (BNVA) | payer MEDICARE, SELFPAY | PROVIDERS: PCP Family Medicine; Visit Provider Family Medicine | DX: I10 Essential (primary) hypertension (principal); R73.03 Prediabetes | CPT/HCPCS: 80053; 83036 ==

== ENCOUNTER → 2024-06-06 16:07 | Outpatient (BNVA) | payer MEDICARE, SELFPAY | PROVIDERS: PCP Family Medicine; Visit Provider Internal Medicine Cardiovascular Disease | DX: I25.10 Atherosclerotic heart disease of native coronary artery without angina pectoris (principal); Z98.61 Coronary angioplasty status; I10 Essential (primary) hypertension | CPT/HCPCS: 99214 ==

== ENCOUNTER → 2024-07-02 08:46 | Outpatient (BNVA) | payer MEDICARE, SELFPAY | PROVIDERS: PCP Family Medicine; Visit Provider Family Medicine | DX: I10 Essential (primary) hypertension (principal); E11.9 Type 2 diabetes mellitus without complications; E78.5 Hyperlipidemia, unspecified | CPT/HCPCS: 80053; 80061; 83036 ==

== ENCOUNTER → 2025-02-25 10:36 | Outpatient (BNVA) | payer MEDICARE, SELFPAY | PROVIDERS: PCP Family Medicine; Visit Provider Family Medicine | DX: E11.9 Type 2 diabetes mellitus without complications (principal); I10 Essential (primary) hypertension | CPT/HCPCS: 80048; 83036 ==